=== PATIENT | male | born 1955 | race Caucasian/White ===

== ENCOUNTER → 2017-08-28 09:46 | Outpatient (CLI) | payer MEDICARE, MEDICAID, SELFPAY ==
[2017-08-28 11:08] LABS: Anion Gap 13.4 mEq/L (5-15); Blood Urea Nitrogen 17 mg/dL (7-18); Calcium 9.3 mg/dL (8.5-10.1); Carbon Dioxide 28 mmol/L (21.0-32.0); Chloride 106 mmol/L (98-107); Creatinine,Serum 1.01 mg/dL (0.70-1.30); Estimated Glomerular Filt Rate 75 ml/min (>60); GFR (African American) 90 ML/MIN (>60); Glucose 137 mg/dL (74-106); Potassium 4.4 mmoL/L (3.5-5.1); Sodium 143 mmol/L (136-145)
== END ==
PROVIDERS: Visit Provider Internal Medicine Cardiovascular Disease
DX: I25.5 Ischemic cardiomyopathy (principal)
CPT/HCPCS: 36415; 80048

== ENCOUNTER → 2018-02-28 08:27 | Outpatient (CLI) | payer MEDICARE, MEDICAID, SELFPAY ==
--- NOTE | 2018-02-28 08:34 | IR_ITS ---
CT shoulder LT w con, IR arthrogram shoulder LT HISTORY: Left shoulder injury and pain with limited range of motion. Patient has a pacemaker and cannot have an MRI. ITS.REASON: LEFT SHOULDER ARTHROGRAM ORDERING PHYSICIAN: Barbara Meneses MD PATIENT AGE: 63 years Comparison: 02/10/2018 TECHNIQUE: Following obtaining informed consent under aseptic conditions and local anesthesia with 1% lidocaine 25-gauge needle was advanced to the superior medial aspect at the head of the humerus at the rotator interval. Approximately 12 cc of Isovue-300 was injected without complication. The patient tolerated the procedure well without evidence of immediate complication. Left shoulder arthrogram: There was flow contrast easily into the left shoulder joint and axillary recess. The patient did exercise his shoulder. Images were then obtained. There is normal localization of the contrast. There is no evidence of contrast extravasating into the subacromial region. No evidence of rotator cuff tear. No evidence of adhesive capsulitis. The patient was then taken to the CT suite where axial images are obtained and ABER angled images obtained. Reformatted images were also obtained. FINDINGS: There is no evidence of rotator cuff tear. There is a small area of discontinuity of the anterior glenoid labrum filling with contrast. This has a somewhat irregular contour and is located at the 3:00 position of the anterior glenoid labrum consistent with a Bankart lesion. The bone does not appear involved. There does appear to be some minimal superior extension of this lesion. No other significant anomalies are evident. Bicipital tendon is in place. No fractures are apparent. IMPRESSION: The findings are consistent with tear of the anterior glenoid labrum at the 3:00 region consistent with a Bankart lesion without bony involvement.
== END ==
PROVIDERS: Visit Provider Orthopaedic Surgery
DX: S43.402A Unspecified sprain of left shoulder joint, initial encounter (principal)
CPT/HCPCS: 73040; 73201; Q9967

== ENCOUNTER → 2020-02-11 10:06 | Outpatient (CLI) | payer MEDICARE, MEDICAID, SELFPAY ==
--- NOTE | 2020-02-11 10:12 | XR_ITS ---
PROCEDURE: XR CHEST 2V CLINICAL HISTORY: CHEST PAIN COMPARISON: CR CXR1 CHEST-PORTABLE from 05/17/2014 CR CXR1 CHEST-PORTABLE from 03/10/2016 FINDINGS: The cardiomediastinal silhouette and pulmonary vascularity are within normal limits. Bipolar pacemaker is present from left subclavian approach. There is increased density in both lower lobes consistent with bilateral pneumonia with some atelectatic change with trace bilateral effusions. No acute bony abnormalities. IMPRESSION: Bilateral lower lobe pneumonia with trace bilateral effusions Dictated by: Zuhair De Souza MD 02/11/2020 10:43 Zuhair De Souza MD in [place] 02/11/2020 10:43
== END ==
PROVIDERS: PCP Family Medicine; Visit Provider Family Medicine
DX: R07.9 Chest pain, unspecified (principal)
CPT/HCPCS: 71046

== ENCOUNTER 2021-07-01 03:39 | Observation (INO) | payer MEDICARE, MEDICAID, SELFPAY ==
[2021-07-01] VITALS (35 sets, daily range): BP systolic 62–137; BP diastolic 38–90; PULSE 56–177; RESP 11–23; TEMP 36.6–37.1; O2SAT 72–100; BMI 31.1; BMI 32.1; BMI 31.9
--- NOTE | 2021-07-01 03:36 | ECG_ITS ---
APPROVED REPORT Exam: Resting ECG HR:179 bpm ECG Measurements Heart Rate 179 AXES QRSd 221 QRS -70 QT 297 T 165 QTc 392 Conclusion ATRIAL FIBRILLATION WITH RAPID VENTRICULAR RESPONSE WITH ABERRANT CONDUCTION OR VENTRICULAR PREMATURE COMPLEXES INTRAVENTRICULAR CONDUCTION DELAY [130+ ms QRS DURATION] LATERAL MYOCARDIAL INFARCTION , PROBABLY RECENT [40+ ms Q WAVE AND/OR ST/T ABNORMALITY IN I/aVL/V5/V6] ACUTE NC INTERPRETATION BASED ON A DEFAULT AGE OF 40 YEARS UNCONFIRMED REPORT Electronically signed by : Brenden Keita MD 07/01/2021 09:55:51
--- NOTE | 2021-07-01 03:44 | XR_ITS ---
PROCEDURE INFORMATION: Exam: XR Chest Exam date and time: 07/01/2021 3:50 AM Age: 66 years old Clinical indication: Other: Tachycardia; Sternal or substernal pain; Additional info: Cp TECHNIQUE: Imaging protocol: XR of the chest. Views: 1 view. COMPARISON: CR XR CHEST 2V 02/11/2020 10:14 AM FINDINGS: Tubes, catheters and devices: AICD in stable position. Transdermal pacer leads projecting over the left hemithorax and the mediastinum. Lungs: Low lung volumes with atelectasis at the lung bases. No dense consolidation. Pleural spaces: Unremarkable. No pleural effusion. No pneumothorax. Heart/Mediastinum: The cardiac silhouette is at the upper limit of normal. Bones/joints: Unremarkable. IMPRESSION: No acute cardiopulmonary abnormality.
[2021-07-01 04:01] LABS: Basophils # 0.6 K/mm3 (0-0.2); Basophils % 5.1 % (0.1-2.0); Eosinophils # 0.4 K/mm3 (0.0-0.4); Eosinophils % 2.9 % (0.1-12.0); Hemoglobin 15.4 g/dL (14.1-18.0); Lymphocytes # 3.8 K/mm3 (0.7-4.5); Lymphocytes % 30.6 % (10-50); Mean Corpuscular HGB Conc 33.6 g/dL (31.8-35.4); Mean Corpuscular Hemoglobin 32.5 pg (27.0-31.2); Mean Corpuscular Volume 96.6 fl (80-94); Mean Platelet Volume 9.2 fl (7.4-10.4); Monocytes # 0.9 K/mm3 (0.1-1.0); Neutrophils # 7.4 K/mm3 (1.8-7.8); Neutrophils % 59.5 % (37.0-80.0); Platelet Count 213 K/mm3 (142-424); Red Blood Count 4.76 M/mm3 (4.60-6.20); Red Cell Distribution Width 14.4 % (11.5-17.5); White Blood Count 12.4 K/mm3 (4.8-10.8)
[2021-07-01 04:06] LABS: Alanine Aminotransferase 35 U/L (12-78); Albumin Level 4.3 g/dl (3.5-5.0); Alkaline Phosphatase 69 U/L (38-126); Anion Gap 12.8 mEq/L (5-15); Aspartate Amino Transferase 41 U/L (17-59); Bilirubin,Direct 0.1 mg/dl (0.0-0.4); Bilirubin,Indirect 0.5 mg/dL (0.0-0.9); Bilirubin,Total 0.6 mg/dl (0.2-1.3); Bilirubin,Unconjugated 0.5 mg/dL (0.0-1.1); Blood Urea Nitrogen 31 mg/dl (9-20); Carbon Dioxide 26 mmol/L (22.0-30.0); Chloride 106 mmol/L (98-107); Creatinine Clearance Estimated 106 mL/min (50-200); Estimated Glomerular Filt Rate 75 ml/min (>60); GFR (African American) 90 ML/MIN (>60); Glucose 170 mg/dl (74-100); Potassium 3.8 mmoL/L (3.5-5.1); Sodium 141 mmol/L (136-145); Total Protein,Serum 7.3 g/dl (6.3-8.2)
--- NOTE | 2021-07-01 04:09 | HMH.EDCP ---
ED Disposition Clinical Impression: Cardiac arrhythmia Qualifiers: Arrhythmia type: ventricular tachycardia Qualified Code(s): I47.2 - Ventricular tachycardia Disposition: Admitted As Inpatient Condition on Discharge: Serious - Critical Care Critical Care Time: Yes Attestation: On 07/01/21, the high probability of a clinically significant, sudden or life threatening deterioration of the following system(s) required my full and direct attention, intervention and personal management. The time I documented below is in addition to time spent performing reported procedures but includes the following listed in this critical care notation. Total Critical Care Time: 60 Vital system(s) involved:: Circulatory Failure My critical care processes included: Assessment & monitoring of V/S, Initial and Re-exams, Data Review/Interpretation, Coordinating Care, Medication Orders and management, Documentation Medical Decision Making - Medical Records Medical records reviewed: Yes: I reviewed the patient's medical records. - [place] Inquiry Pt receiving controlled substance: No Vital Signs: 07/01/21 03:40 07/01/21 03:46 07/01/21 03:49 Pulse Rate 176 H Pulse Rate [Left Radial] 177 H Respiratory Rate 18 13 Blood Pressure 88/42 L 83/46 L Blood Pressure [Right Arm] 85/53 L Blood Pressure Mean 65 Blood Pressure Mean [Right Arm] 63 02 Sat by Pulse Oximetry 99 98 Oxygen Delivery Method Room Air Room Air 07/01/21 03:51 07/01/21 03:55 07/01/21 03:56 Pulse Rate 175 H 175 H 174 H Pulse Rate [Left Radial] Respiratory Rate 15 18 16 Blood Pressure 81/38 L 67/47 L 71/47 L Blood Pressure [Right Arm] Blood Pressure Mean Blood Pressure Mean [Right Arm] 02 Sat by Pulse Oximetry 94 L 98 96 Oxygen Delivery Method Room Air Room Air Room Air 07/01/21 04:00 07/01/21 04:01 07/01/21 04:11 Pulse Rate 175 H 175 H 96 H Pulse Rate [Left Radial] Respiratory Rate 16 14 23 Blood Pressure 65/43 L 62/41 L 71/49 L Blood Pressure [Right Arm] Blood Pressure Mean Blood Pressure Mean [Right Arm] 02 Sat by Pulse Oximetry 98 97 97 Oxygen Delivery Method Room Air Room Air Room Air 07/01/21 04:16 07/01/21 04:19 07/01/21 04:20 Pulse Rate 170 H 65 169 H Pulse Rate [Left Radial] Respiratory Rate 14 20 20 Blood Pressure 64/42 L 62/45 L 68/42 L Blood Pressure [Right Arm] Blood Pressure Mean Blood Pressure Mean [Right Arm] 02 Sat by Pulse Oximetry 99 99 98 Oxygen Delivery Method Room Air Room Air Room Air 07/01/21 04:24 07/01/21 04:28 07/01/21 04:30 Pulse Rate 160 H 70 Pulse Rate [Left Radial] Respiratory Rate 16 21 18 Blood Pressure 66/40 L 70/50 L 98/65 L Blood Pressure [Right Arm] Blood Pressure Mean Blood Pressure Mean [Right Arm] 02 Sat by Pulse Oximetry 99 72 L Oxygen Delivery Method Room Air Room Air Room Air 07/01/21 04:35 07/01/21 04:40 07/01/21 04:45 Pulse Rate 65 62 63 Pulse Rate [Left Radial] Respiratory Rate 15 15 16 Blood Pressure 75/51 L 75/45 L 73/43 L Blood Pressure [Right Arm] Blood Pressure Mean Blood Pressure Mean [Right Arm] 02 Sat by Pulse Oximetry 94 L 100 99 Oxygen Delivery Method Room Air Room Air Room Air 07/01/21 04:50 07/01/21 04:54 07/01/21 04:56 Pulse Rate 63 64 65 Pulse Rate [Left Radial] Respiratory Rate 14 15 12 Blood Pressure 73/40 L 74/46 L 79/48 L Blood Pressure [Right Arm] Blood Pressure Mean Blood Pressure Mean [Right Arm] 02 Sat by Pulse Oximetry 100 99 97 Oxygen Delivery Method Room Air Room Air Room Air 07/01/21 05:00 07/01/21 05:10 07/01/21 05:30 Pulse Rate 67 65 61 Pulse Rate [Left Radial] Respiratory Rate 15 17 16 Blood Pressure 83/47 L 79/47 L 84/50 L Blood Pressure [Right Arm] Blood Pressure Mean Blood Pressure Mean [Right Arm] 02 Sat by Pulse Oximetry 97 97 99 Oxygen Delivery Method Room Air Room Air Room Air - Lab Data Lab results reviewed: Yes: I reviewed the patient's l
[2021-07-01 04:23] LABS: T4 (Thyroxine) 8.7 ug/dl (5.53-11.0)
[2021-07-01 04:30] LABS: Troponin I < 0.01 ng/ml (0.00-0.034)
--- NOTE | 2021-07-01 04:33 | ECG_ITS ---
APPROVED REPORT Exam: Resting ECG HR:67 bpm ECG Measurements Heart Rate 67 AXES WY 201 P 27 QRSd 109 QRS 64 QT 432 T 99 QTc 447 Conclusion SINUS RHYTHM LOW QRS VOLTAGE IN PRECORDIAL LEADS [QRS DEFLECTION < 1.0 mV IN CHEST LEADS] PROBABLE ANTERIOR MYOCARDIAL INFARCTION , OF INDETERMINATE AGE [35 ms Q WAVE IN V3/V4] ABNORMAL ECG INTERPRETATION BASED ON A DEFAULT AGE OF 40 YEARS UNCONFIRMED REPORT Electronically signed by : Brenden Keita MD 07/01/2021 16:20:28
--- NOTE | 2021-07-01 04:40 | PC.NURSE ---
Dr. Lenny arroyo for ED
--- NOTE | 2021-07-01 04:42 | PC.NURSE ---
Dr. Chairez on phone with Dr. Galvez
[2021-07-01 05:10] LABS: Coronavirus 19, PCR Not Detected (NotDetected); Influenza A, PCR Not Detected (NotDetected); Influenza B, PCR Not Detected (NotDetected)
--- NOTE | 2021-07-01 05:11 | PC.NURSE ---
0330 pt arrived in ED complaining of chest pain pt has a hx or cardiac issues @0335 pt heart rate was 174 he was vtach/ vfib on the monitor @0445 pt received adenosine with no results pt then maintained 175 hr and no rhythm @0350 started q5 min metoprolol ended 0400 no change 5 versed given @0425 Shock administered @0428 charge @200
--- NOTE | 2021-07-01 06:40 | PC.NURSE ---
PT ARRIVED TO FLOOR VIA STRETCHER FROM ED W/STAFF @ [id number]
--- NOTE | 2021-07-01 08:00 | CA_ITS ---
APPROVED REPORT EXAM: Comprehensive 2D, Doppler, and color-flow Echocardiogram Outbound Supervisor: Rosaura Parekh RVT Ht: 6 ft 0 in Wt: 237lbs BSA: 2.29 BP: 84/50 mmHg Indications: CP,TACHYCARDIA WITH CARDIOVERSION THIS AM, HX ABLATION,A-FIB,CAD,AICD,HLD,HX CHF TDS-PT HAS EXTERNAL PACER ON MID CHEST Echo Enhancing Agent Indication: Endocardial border delineation Agent(s) / Amount(s) Used: Definity 2 cc 2D Dimensions LVOT 3.77 cm (M/F) 1.5-2.5 LA Volume 123.10 mL LA Volume Index 53.75 mL/m2 (M/F) 16-34 M-Mode Dimensions RVDd 2.57 cm (0.9-2.6) LA Diam 5.14 cm (1.9-4.0) LVDd 6.48 cm (3.5-5.7) Ao Diam 3.78 cm (2.0-3.7) LVDs 5.65 cm (3.5-5.7) IVSd 1.06 cm (0.6-1.1) PWd 0.89 cm (0.6-1.1) EF (Teich) 30.60% FS 14.80% EDV (Teich) 225.90 mL TAPSE 1.98 (<1.7) ESV (Teich) 156.80 mL LV Diastology E Decel Time 200.00 (160-240 msec) E/A Ratio 2.0 MED E' 4.90 (< 7 cm/sec) E'/MED E' Ratio 25.47 (>14) LAT E' 7.50 (<10 cm/sec) E/LAT E' Ratio 16.64 (>14) Aortic Valve AO Peak GR. 7.50 mmHg Mitral Valve MV E Max Kelby. 125.00 (40-130 cm/s) MV A Velocity 61.00 (40-130 cm/s) E/A Ratio 2.03 MV Decel. Time 200.00 (160-240 ms) MV PHT 59.00 ms Tricuspid Valve TR P. Velocity 329.00 cm/s RAP Estimate 10.00 mmHg RVSP 53.40 mmHg Left Ventricle Left atrium is mildly enlarged, left ventricle is mildly dilated, severe reduced left ventricular systolic function, visually estimated ejection fraction 25%, there is marked hypokinesis involving mid to distal septum, anterior, anterior apical and apical wall, grade 2 diastolic dysfunction seen with tissue Doppler evidence of raise left atrial pressure. Right Ventricle Right atrium is mildly enlarged, right ventricle is normal size and contractility, there is pacemaker lead seen in right ventricle. Aortic Valve Aortic valve is minimally thickened and fibrosed there is no aortic stenosis or aortic insufficiency. Mitral Valve Mitral valve is minimally thickened, there is mild mitral regurgitation. Tricuspid Valve Tricuspid grossly normal, there is mild tricuspid regurgitation, calculated right ventricular systolic pressure is 53 mmHg. Pulmonic Valve Pulmonic valve is poorly visualized. Great Vessels Aortic root is normal size. Inferior vena cava is normal size with normal inspiratory collapse. Pericardium No significant pericardial effusion noted. Conclusion 1. Biatrial enlargement, dilated left ventricle, severe left ventricular systolic function, estimated ejection fraction 25% with multiple segmental wall motion abnormality as described above, grade 2 diastolic dysfunction with tissue Doppler evidence of raise left atrial pressure. 2. Mild mitral and tricuspid regurgitation, calculated right ventricular systolic pressure 53 mmHg. 3. No significant pericardial effusion. 4. Inferior vena cava is normal size with normal inspiratory collapse. Electronically signed by : Hao Guzman MD 07/01/2021 12:48:28
--- NOTE | 2021-07-01 08:00 | HMH.PHAVTE ---
[facility] Pharmacy VTE Monitoring - Patient Demographics Admission date: 07/01/21 Report Date: 07/01/21 Allergies/Adverse Reactions: Patient Allergies Penicillins [PENICILLINS] Allergy (Intermediate, Verified 03/06/18 09:21) I-RASH Height: 1.83 m Weight: 107.501 kg Patient Problems: Current Active Problems Cardiac arrhythmia (Acute) - VTE Risk Labs: VTE Related Lab Results Hgb 15.4 g/dL (14.1-18.0) 07/01/21 03:43 Hct 46.0 % (42.0-52.0) 07/01/21 03:43 Plt Count 213 K/mm3 (142-424) 07/01/21 03:43 BUN 31 mg/dl (9-20) H 07/01/21 03:43 Creatinine 1.00 mg/dl (0.66-1.25) 07/01/21 03:43 Estimated Creat Clear 106 mL/min (50-200) 07/01/21 03:43 Was VTE Risk Assessment Performed: Yes VTE Score: 7 VTE Risk Level: Moderate Risk Clinical Trial Participant: No - Prophylaxis VTE Prophylaxis Ordered?: Yes Types of VTE Prophylaxis: TEDS Knee High, Pharmacological Pharmacologic Type: Other (PRADAXA)
--- NOTE | 2021-07-01 08:32 | HMH.CNCARD ---
History of Present Illness Consult date: 07/01/21 Requesting physician: Fernie Galvez Consult reason: chest pain, atrial fibrillation Chief complaint: A.fib with RVR, feeling of dread Additional Medical History:: 1. Ischemic cardiomyopathy with ejection fraction approximately 30%, follows with Dr. Hairston A. Initial AK 2000 with subsequent stenting B. Coronary stenting in 2001 possible AK at that time C. 2012 coronary stenting x2 per patient D. AICD implanted 2013 due to ischemic cardiomyopathy E. Recurrent atrial fibrillation for which patient underwent ablation, Dr. Dowd 2. Hypertension 3. Hyperlipidemia 4. Arthritis 5. Atrial fibrillation, anticoagulated with Pradaxa A. History of ablation therapy, 2019, [place], [place], Dr. Dowd History of present illness: 66-year-old white male with known ischemic cardiomyopathy, status post A. fib ablation and AICD implantation presented to the [facility] ER for evaluation of weakness, not feeling well with a sense of dread after waking up about 3:00 last night. He did take 1 or 2 nitroglycerin at home without relief and decided come to the ER for evaluation. He was found to be in a tachycardic rate which was felt to be atrial fibrillation with aberrant conduction. He was given adenosine without improvement followed by metoprolol IV x3 without improvement and was subsequently given a bolus of IV amiodarone and cardioverted electrically. He is maintaining sinus rhythm on amiodarone drip at this time. Patient relates he did forget to take his carvedilol and Entresto last evening. He also did have intercourse with his last night prior to the episode of discomfort. He has been physically active recently moving over a ton of [email or web address] material 2 days ago without any problems. He even mowed his grass yesterday on a ride more without issues. Initial troponin is normal. Preliminary echocardiogram this a.m. with Definity contrast shows ejection fraction around 30% which is consistent with the patient's history. [facility] History Medical History: Reports:: Arrhythmia, Atrial Fibrillation, Congestive Heart Failure, Coronary Artery Disease, Deep Vein Thrombosis, Hyperlipidemia, Hypertension, Internal Pacemaker, Myocardial Infarction Denies:: Cancer, Diabetes Mellitus Type 1, Diabetes Mellitus Type 2, MRSA *Have you ever received a pneumonia vaccine?: Yes *Have you received a flu vaccine this season?: Yes Laterality Cases: Bilateral: Tonsillectomy Other Surgeries: Yes: Angioplasty, Appendectomy, Cardiac Catheterization, Cardiac Surgery, Coronary Stent, Pacemaker, Other Amputation: No Fractures: No - *Social History Last grade of school completed: Some college Smoking Status: Never smoker Alcohol Intake: never Substance Use Type: other Last Used Substance: days (ago) *Occupational Status:: retired Housing: house Household Members: spouse *Travel in the last 8 weeks: None Family Hx:: Cancer, Coronary Artery Disease, Diabetes, Heart Attack, Hyperlipidemia, Hypertension, Alcoholism Meds Home Medications Medication Instructions Recorded Confirmed Type Aspirin [Aspir 81] 81 mg PO DAILY 07/18/17 07/01/21 History Atorvastatin Calcium [Atorvastatin 40 mg PO HS 07/18/17 07/01/21 History 40mg Tab] Sacubitril/Valsartan [Entresto 97 1 each PO BID 07/18/17 07/01/21 History mg-103 mg Tablet] carvediloL [Carvedilol 25mg Tab] 25 mg PO BID 07/18/17 07/01/21 History Dabigatran Etexilate Mesylate 150 mg PO BID 07/01/21 07/01/21 History [Pradaxa] Eplerenone 12.5 mg PO DAILY 07/01/21 07/01/21 History Trazodone HCl [Desyrel 50mg tablet] 50 mg PO HS 07/01/21 07/01/21 History Allergies Allergy/AdvReac Type Severity Reaction Status Date / Time Penicillins [PENICILLINS] Allergy Intermediate I-RASH Verified 03/06/18 09:21 Exam Vital signs and Labs for Last 24 Hours: Temp Pulse Resp BP Pulse Ox 98.1 F 59 L 16 102/60 L 96 07/01/21 08:00 07/01/21
--- NOTE | 2021-07-01 08:55 | HMH.PHAINT ---
HOME MEDICATION LIST VERIFIED USING LIST FROM OUTPATIENT PHARMACY
--- NOTE | 2021-07-01 09:30 | PC.NURSE ---
received call from lab reporting Troponin 0.5. Name and verified. Basilio MCGREGOR rounding and is aware.
--- NOTE | 2021-07-01 10:15 | PC.NURSE ---
Amio gtt decreased to 0.5mg/min.
--- NOTE | 2021-07-01 13:12 | HMH.HPDC ---
<Linda Duran - Last Filed: 07/01/21 13:12> General - General Admission date:: 07/01/21 Discharge date: 07/01/21 *Admission Date: 07/01/21 *Chief complaint: chest pain *History of present illness: 66-year-old white male with known ischemic cardiomyopathy, status post A. fib ablation and AICD implantation presented to the [facility] ER for evaluation of weakness, not feeling well with a sense of dread after waking up about 3:00 last night. He did take 1 or 2 nitroglycerin at home without relief and decided come to the ER for evaluation. He was found to be in a tachycardic rate which was felt to be atrial fibrillation with aberrant conduction. He was given adenosine without improvement followed by metoprolol IV x3 without improvement and was subsequently given a bolus of IV amiodarone and cardioverted electrically. He is maintaining sinus rhythm on amiodarone drip at this time. Patient relates he did forget to take his carvedilol and Entresto last evening. He also did have intercourse with his last night prior to the episode of discomfort. He has been physically active recently moving over a ton of [employer] material 2 days ago without any problems. He even mowed his grass yesterday on a ride more without issues. Initial troponin is normal. Preliminary echocardiogram this a.m. with Definity contrast shows ejection fraction around 30% which is consistent with the patient's history. (above as per Basilio Valenzuela) [facility] History I have reviewed the patient's past medical history: Yes Medical History: Reports:: Arrhythmia, Atrial Fibrillation, Congestive Heart Failure, Coronary Artery Disease, Deep Vein Thrombosis, Hyperlipidemia, Hypertension, Internal Pacemaker, Myocardial Infarction Denies:: Cancer, Diabetes Mellitus Type 1, Diabetes Mellitus Type 2, MRSA *Have you ever received a pneumonia vaccine?: Yes *Have you received a flu vaccine this season?: Yes Laterality Cases: Bilateral: Tonsillectomy Other Surgeries: Yes: Angioplasty, Appendectomy, Cardiac Catheterization, Cardiac Surgery, Coronary Stent, Pacemaker, Other Amputation: No Fractures: No - *Social History Last grade of school completed: Some college Smoking Status: Never smoker Alcohol Intake: never Substance Use Type: other Last Used Substance: days (ago) *Occupational Status:: retired Housing: house Household Members: spouse *Travel in the last 8 weeks: None Family Hx:: Cancer, Coronary Artery Disease, Diabetes, Heart Attack, Hyperlipidemia, Hypertension, Alcoholism Review of Systems - Constitutional Denies chills, Denies fever(s) - Eyes Denies blurry vision, Denies double vision - ENT Denies nasal congestion, Denies sore throat - *Cardiovascular Reports chest pain, Reports shortness of breath, Denies leg swelling - *Respiratory Reports shortness of breath, Denies chest congestion, Denies cough - *Gastrointestinal Reports nausea, Denies abdominal pain, Denies loose stools, Denies vomiting - *Genitourinary Denies difficulty urinating, Denies painful urination - *Musculoskeletal Denies joint pain - *Neurologic Reports dizziness, Denies headache(s), Denies seizure-like activity, Denies weakness Exam Vital signs and Labs for Last 24 Hours: Temp Pulse Resp BP Pulse Ox 97.8 F 56 L 11 L 99/65 L 96 07/01/21 10:00 07/01/21 12:00 07/01/21 12:00 07/01/21 12:00 07/01/21 12:00 Laboratory Results - last 24 hr 07/01/21 03:43: WBC 12.4 H, RBC 4.76, Hgb 15.4, Hct 46.0, MCV 96.6 H, MCH 32.5 H, MCHC 33.6, RDW 14.4, Plt Count 213, MPV 9.2, Neut % (Auto) 59.5, Lymph % (Auto) 30.6, Conway % (Auto) 7.0, Eos % (Auto) 2.9, Baso % (Auto) 5.1 H, Neut # (Auto) 7.4, Lymph # (Auto) 3.8, Conway # (Auto) 0.9, Eos # (Auto) 0.4, Baso # (Auto) 0.6 H 07/01/21 03:43: Sodium 141, Potassium 3.8, Chloride 106, Carbon Dioxide 26, Anion Gap 12.8, BUN 31 H, Creatinine 1.00, Estimated Creat Clear 106, Estimated GFR 75, Est GFR ( Amer) 90, Glucose 170 H,
--- NOTE | 2021-07-04 15:38 | CARE MANAGER ---
Attempted to contact patient and left VM message. ROSA MARIA Ken
--- NOTE | 2021-07-05 15:07 | CARE MANAGER ---
Unable to reach patient via phone to discuss post discharge status. Attempted x 2 days.
--- NOTE | 2021-07-05 15:25 | CARE MANAGER ---
Patient returned call today and stated that he had been out mowing his yard when I attempted to call. He states that he is doing well and plans to see e m assembler tomorrow. No known needs at this time.
== END 2021-07-01 14:04 | disposition home or self-care (01) ==
LOC: ER 03:45 → 2ND 04:56
PROVIDERS: Physician Assistant; Admitting Provider Family Medicine; Emergency Provider Emergency Medicine; PCP Family Medicine; Visit Provider Family Medicine
DX: I47.2 Ventricular tachycardia (principal); Z82.49 Family history of ischemic heart disease and other diseases of the circulatory system; Z79.899 Other long term (current) drug therapy; I25.5 Ischemic cardiomyopathy; I11.0 Hypertensive heart disease with heart failure; I50.9 Heart failure, unspecified; I25.10 Atherosclerotic heart disease of native coronary artery without angina pectoris; Z95.0 Presence of cardiac pacemaker; Z95.5 Presence of coronary angioplasty implant and graft; Z20.822 Contact with and (suspected) exposure to COVID-19
CPT/HCPCS: G0378; 36415; 71045; 80048; 80076; 83735; 84436; 84443; 84484; 85025; 92960; 93005; 93306; 96365; 96366; 96375; 96376; 99291; C9803; J0282; J2405; J7060; U0003; U0005

== ENCOUNTER 2022-03-02 16:22 | Inpatient (IN) | payer MEDICARE, MEDICAID, SELFPAY ==
[2022-03-02] VITALS (21 sets, daily range): BP systolic 88–158; BP diastolic 54–74; PULSE 72–181; RESP 12–22; TEMP 36.6–37.6; O2SAT 90–99; BMI 30.4; BMI 30.8
--- NOTE | 2022-03-02 | IR_ITS ---
APPROVED REPORT Patient Location: [facility] Customer Representative: JUAN Johnson RT (R) PROCEDURES Selective coronary angiogram Drug-eluting stent deployment to the mid LAD INDICATION Acute anterior ST elevation myocardial infarction, Coronary artery disease, Ventricular tachycardia Informed consent was obtained prior to the procedure. COMPLICATIONS None Estimated Blood Loss: Less than 10 ml TECHNIQUE One percent lidocaine used to anesthetize the right anterior aspect of the wrist. The right radial artery was accessed via the Seldinger technique. A 6 Tajik sheath was placed in the right radial artery. 2.5 mg of verapamil, 800 mcg of nitroglycerin, 1mg Lidocaine and 5000 U Heparin were given through the arterial sheath. The papa catheter was also used to perform selective coronary angiogram. At the end the diagnostic angiogram Choice PT extra-support wire was placed into the distal LAD and a 3.5 x 22 mm resolute Solo stent was deployed at 20 aline reducing the stenosis to 0%. Repeat angiography demonstrated a stent which was previously placed downstream from the initial stent which was just placed this evening was undersized for the vessel. A 3 mm x 15 mm resolute Cheyney stent was then placed distal to the for stent if still overlapping and deployed at 24 aline. The balloon was brought back and deployed at 28 aline to post dilate and mesh the 2 stents. After achieving excellent angiographic results the apparatus was removed the sheath was removed and hemostasis was achieved using TR banding patient was transferred to the postop putting in stable condition ANGIOGRAPHIC RESULTS The left main artery Normal The left anterior descending artery Has a proximal 30% stenosis followed by 70 to 80% concentric in-stent restenosis in the mid LAD followed by an undersized mid LAD stent. Distally there are diffuse 20% stenoses. A large first diagonal artery is present and has an ostial 40% stenosis accompanied by BRENDAN-3 flow with an additional proximal concentric 40 to 50% stenosis The circumflex artery Is a dominant vessel widely patent with mild 10% diffuse luminal irregularities The right coronary artery Nondominant normal The ROGERS ventriculogram reveals Not performed The left ventricular end-diastolic pressure Not measured IMPRESSION Severe stenosis within the mid LAD with successful stenting reducing the stenosis to 0% with 2 contiguous drug-eluting stents PLAN 1. Dual antiplatelet therapy 2. Uptitrate beta-blockers to keep target heart rate below 70 3. Interrogate AICD in the morning to determine the degree of RV pacing and to determine why the defibrillator did not shock the patient with wide-complex tachycardia 4. Supportive care 5. LDL less than 55 to be achieved with high intensity statin 6. Standard therapy for left ventricular dysfunction which is present based on patient's history 7. Echocardiogram in the morning to better assess left ventricular ejection fraction 8. My initial impression is patient is not on an appropriate amount of beta-blockade therapy. If patient does have left ventricular dysfunction as history suggests and begins to RV pace with higher doses of beta-blockers which he clearly requires then he would be a candidate for an upgrade to biventricular pacing. At this point I cannot say whether patient is an appropriate candidate for cardiac resynchronization therapy however it appears apparent that much higher doses of beta-jose therapy is required Electronically signed by : Arvind Nuñez MD 03/03/2022 14:08:09
--- NOTE | 2022-03-02 16:20 | ECG_ITS ---
APPROVED REPORT Exam: Resting ECG HR:168 bpm ECG Measurements Heart Rate 168 AXES QRSd 291 QRS -66 QT 319 T 0 QTc 410 Conclusion ATRIAL FIBRILLATION WITH RAPID VENTRICULAR RESPONSE LBBB CRITICAL TEST RESULT UNCONFIRMED REPORT Electronically signed by : Brenden Keita MD 03/03/2022 16:47:18
--- NOTE | 2022-03-02 16:28 | PC.NURSE ---
pt moved from room 5 to room 4 with zoll attached.
--- NOTE | 2022-03-02 16:34 | PC.NURSE ---
Shock given to pt, MD, respiratory and other nursing staff at bs, pt tolerated well
--- NOTE | 2022-03-02 16:36 | ECG_ITS ---
APPROVED REPORT Exam: Resting ECG HR:89 bpm ECG Measurements Heart Rate 89 AXES MT 184 P 94 QRSd 101 QRS -16 QT 319 T 116 QTc 366 Conclusion SINUS RHYTHM LBBB Late R wave progression Inferior Q wave noted ABNORMAL ECG UNCONFIRMED REPORT Electronically signed by : Brenden Keita MD 03/03/2022 16:46:48
--- NOTE | 2022-03-02 16:44 | PC.NURSE ---
speaking with Dr. Nuñez
--- NOTE | 2022-03-02 16:45 | XR_ITS ---
PROCEDURE INFORMATION: Exam: XR Chest Exam date and time: 03/02/2022 5:03 PM Age: 67 years old Clinical indication: Pain; Chest pressure; Prior surgery; Surgery date: 6+ months; Surgery type: Pace maker implant; Patient HX: HX myocardial infarction; Additional info: Chest pain. Stemi TECHNIQUE: Imaging protocol: Radiologic exam of the chest. Views: 1 view. COMPARISON: CR XR CHEST PORTABLE 07/01/2021 3:50 AM FINDINGS: Tubes, catheters and devices: There is an electronic monitoring device projecting over the right anterior chest wall with large rounded paddles projecting over the upper heart border. Lungs: Visualized lung delacruz are aerated and clear. Pleural spaces: Unremarkable. No pleural effusion. No pneumothorax. Heart/Mediastinum: Cardiac silhouette is enlarged. There are pacemaker wires projecting within the right atrium and right ventricle, unchanged. The Bones/joints: Unremarkable for age. IMPRESSION: Cardiomegaly otherwise negative chest.
--- NOTE | 2022-03-02 16:48 | PC.NURSE ---
at speaking with pt and about cardiology plan
--- NOTE | 2022-03-02 16:49 | PC.NURSE ---
Called front end driver; STEMI alert
--- NOTE | 2022-03-02 16:54 | PC.NURSE ---
LesleyRN spoke with Dr. Nuñez and confirmed medications. Dr. Nuñez advised to hold off on the heparin at this time, but to give the 324mg of ASA, and 180mg of Brilinta Repeated and verified with Dr. Nuñez and notified Dr. Carey and patient medicated.
--- NOTE | 2022-03-02 16:54 | HMH.EDGENADL ---
Discharge Plan Disposition Patient Disposition: Still a Patient Condition: Critical Clinical Impressions Clinical Impression: Ventricular tachycardia, Acute hypotension, ST elevation (STEMI) myocardial infarction Discharge ED Provider: Alejandro Carey General Adult HPI General Chief complaint: Chest Pain Stated complaint: chest pain Time Seen by Provider: 03/02/22 16:25 History of Present Illness HPI narrative: The patient states that he has had a 1 hour history of chest tightness and left arm pain with some mild shortness of breath, nausea, and diaphoresis. He took a nitroglycerin at home. He has a known history of cardiomyopathy, atrial fibrillation status post ablation, myocardial infarction and stent placement, AICD/pacemaker. He is anticoagulated with Pradaxa. He had an episode of ventricular tachycardia requiring cardioversion at this hospital in June. He states that he just saw his primary care provider in the office today and was diagnosed with a urinary tract infection. He was prescribed an antibiotic which she took 2 hours before his current symptoms started. He states he also has been sick for about a month. He got bit by Lyme disease tick in January and was treated with doxycycline. He has strep throat treated with cefdinir. He said he has a high white blood cell count that has been going higher and they think he might have CLL. Related Data Home Medications Medication Instructions Recorded Confirmed aspirin 81 mg tablet,delayed 81 mg PO DAILY Heart Health 07/18/17 03/02/22 release atorvastatin 40 mg tablet 40 mg PO HS High cholesterol 07/18/17 03/02/22 carvedilol 25 mg tablet 25 mg PO BID Hypertension 07/18/17 03/02/22 sacubitril 97 mg-valsartan 103 mg 1 each PO BID Hypertension 07/18/17 03/02/22 tablet dabigatran etexilate 150 mg capsule 150 mg PO BID Blood thinner 07/01/21 03/02/22 eplerenone 25 mg tablet 12.5 mg PO DAILY High blood 07/01/21 03/02/22 pressure trazodone 50 mg tablet 50 mg PO HS Sleep 07/01/21 03/02/22 Allergies Allergy/AdvReac Type Severity Reaction Status Date / Time Penicillins [PENICILLINS] Allergy Intermediate I-RASH Verified 07/04/21 13:30 [facility] Disclaimer: The information contained in this section may have been updated after the patient was seen, as this information can be updated by other users. Medical History (Updated 03/02/22 @ 19:05 by Paxton Garcia RN) Atrial fibrillation Myocardial infarction Family History (Updated 03/02/22 @ 19:05 by Paxton Garcia RN) Other Family history of hyperlipidemia Family history of hypertension Family history of myocardial infarction Social History Smoking Status: Unknown if ever smoked alcohol intake: never substance use type: other current occupational status: retired Travel in the last 8 weeks: Inside the [place] household members: spouse housing: house caffeine: Yes ROS Obtained: Yes Systems reviewed as appropriate & no additional complaints except as documented Constitutional Constitutional: Denies fever(s), Denies headache(s) and Denies weakness ENT Ears, Nose, Mouth, and Throat: Denies headache(s), Denies nasal discharge and Denies sore throat Cardiovascular Cardiovascular: Reports chest pain, Reports diaphoresis and Denies palpitations Respiratory Respiratory: Reports shortness of breath and Denies cough Gastrointestinal Gastrointestingal: Denies abdominal pain, constipation, diarrhea or vomiting Genitourinary Male Genitourinary: Reports as per HPI Musculoskeletal Musculoskeletal: Denies numbness Neurologic Neurologic: Denies headache(s), Denies numbness and Denies weakness Endocrine Endocrine: Denies palpitations Physical Exam General General appearance: alert and in no apparent distress Comment: threat monitoring analyst shows wide-complex tachycardia, presumed ventricular tachycardia. Blood pressure is 84 systolic. Head Head exam: atraumatic and normocephalic Eye Eye
[2022-03-02 17:01] LABS: Chloride 102 mmol/L (98-107); Sodium 137 mmol/L (136-145)
[2022-03-02 17:02] LABS: Potassium 3.7 mmoL/L (3.5-5.1)
[2022-03-02 17:04] LABS: Basophils # 2.6 K/mm3 (0-0.2); Basophils % 3.2 % (0.1-2.0); Blood Urea Nitrogen 16 mg/dl (9-20); Creatinine Clearance Estimated 85 mL/min (50-200); Eosinophils # 0.4 K/mm3 (0.0-0.4); Eosinophils % 0.5 % (0.1-12.0); Estimated Glomerular Filt Rate 60 ml/min (>60); GFR (African American) 73 ML/MIN (>60); Hematocrit 42.4 % (42.0-52.0); Hemoglobin 13.6 g/dL (14.1-18.0); Lymphocytes # 4.7 K/mm3 (0.7-4.5); Lymphocytes % 5.7 % (10-50); Mean Corpuscular Hemoglobin 31.6 pg (27.0-31.2); Mean Corpuscular Volume 98.8 fl (80-94); Mean Platelet Volume 9.8 fl (7.4-10.4); Monocytes # 2.6 K/mm3 (0.1-1.0); Monocytes % 3.1 % (1.7-9.3); Neutrophils # 74.2 K/mm3 (1.8-7.8); Neutrophils % 90.6 % (37.0-80.0); Platelet Count 495 K/mm3 (142-424); Red Blood Count 4.29 M/mm3 (4.60-6.20); Red Cell Distribution Width 14.7 % (11.5-17.5)
[2022-03-02 17:05] LABS: Anion Gap 15.7 mEq/L (5-15); Calcium 9.4 mg/dl (8.4-10.2); Carbon Dioxide 23 mmol/L (22.0-30.0); Glucose 154 mg/dl (74-100)
[2022-03-02 17:08] LABS: White Blood Count 81.9 K/mm3 (4.8-10.8)
[2022-03-02 17:09] LABS: MANUAL DIFFERENTIAL MANUAL DIFFERENTIAL (MANUAL DIFF)
[2022-03-02 17:21] LABS: Troponin I < 0.01 ng/ml (0.00-0.034)
[2022-03-02 17:25] LABS: Lymphocytes % 14 % (10-50); Monocytes % 4 % (2-9); Neutrophils % 82 % (42-76); Total Cells Counted 100
[2022-03-02 17:26] LABS: Platelet Estimate Slight Increase; Schistocytes 1+
--- NOTE | 2022-03-02 17:35 | PC.NURSE ---
[id number] paving and surfacing labourer team paged josette [phone] [phone]
--- NOTE | 2022-03-02 17:50 | PC.NURSE ---
transported pt to wheelabrator operator with HS and
[2022-03-02 18:32] LABS: CATHL Activated Clotting Time 242 SEC (74-125)
[2022-03-02 18:32] LABS: CATHL Activated Clotting Time 307 SEC (74-125)
--- NOTE | 2022-03-02 21:00 | EXP.HP ---
History of Present Illness *Admission Date: 03/02/22 *Reason for visit:: Chest Pain *History of present illness: Mr. Kaufman is a 67-year-old male with a past medical history that is positive for CAD, h/o RI and previous history of PCI, Atrial Fibrillation, Hyperlipidemia and suspected CLL, followed by [facility]. He presented to [facility] through the ER due to chest pain that occurred approximately 1 hour prior to presentation with associated left arm pain, shortness of air, nausea and diaphoresis. In the ER he was noted to be in a wide-complex tachycardia, he was sedated and controverted, following Cardioversion he was noted to have ST segment elevation in the anterior leads. A STEMI alert was called and he was taken to the laboratory immunologist. He underwent a radial approach. He was found to have significant stenosis in the mid LAD and underwent successful stenting with 2 contiguous drug-eluting stents. He is seen following his cath procedure. It is noted that he has an AICD and it did not fire, Cardiology recommendations will be implemented. He reports that he was just diagnosed with a UTI prior to the event earlier in the day. Urine will be sent for urinalysis and empiric antibiotic started. The plan of care was discussed with the patient and daughter at bedside on admission. [facility] Disclaimer: The information contained in this section may have been updated after the patient was seen, as this information can be updated by other users. Medical History (Updated 03/02/22 @ 21:18 by Fernando Kendrick DNP) Atrial fibrillation CLL (chronic lymphocytic leukemia) Myocardial infarction Surgical History (Updated 03/02/22 @ 21:09 by Fernando Kendrick DNP) AICD (automatic cardioverter/defibrillator) present History of cardiac radiofrequency ablation (RFA) History of percutaneous coronary intervention Family History Other Family history of hyperlipidemia Family history of hypertension Family history of myocardial infarction Social History (Updated 03/02/22 @ 21:09 by Fernando Kendrick DNP) Smoking Status: Never smoker alcohol intake: never substance use type: other current occupational status: retired Travel in the last 8 weeks: [place] the [place] household members: spouse housing: house caffeine: Yes Review of Systems Review of Systems Review of systems:: pertinent systems reviewed and negative unless documented below Constitutional Constitutional: Reports system reviewed and no additional complaints, except as documented Eyes Eyes: Reports system reviewed and no additional complaints, except as documented ENT Ears, Nose, Mouth, and Throat: Reports system reviewed and no additional complaints, except as documented *Cardiovascular Cardiovascular: Reports chest pain, Reports dyspnea and Reports lightheadedness *Respiratory Respiratory: Reports system reviewed and no additional complaints, except as documented and Reports dyspnea *Gastrointestinal Gastrointestinal: Reports system reviewed and no additional complaints, except as documented *Genitourinary Genitourinary: Reports system reviewed and no additional complaints, except as documented *Musculoskeletal Musculoskeletal: Reports system reviewed and no additional complaints, except as documented Integumentary/Breasts Skin/Breast: Reports system reviewed and no additional complaints, except as documented *Neurologic Neurologic: Reports system reviewed and no additional complaints, except as documented Psychiatric Psychiatric: Reports system reviewed and no additional complaints, except as documented Endocrine Endocrine: Reports system reviewed and no additional complaints, except as documented Hematologic/Lymphatic Hematologic/Lymphatic: Reports system reviewed and no additional complaints, except as documented Allergic/Immunologic Allergic/Immunologic: Reports system reviewe
--- NOTE | 2022-03-02 21:45 | PC.NURSE ---
attempted to take last 2mL of air out of radial band, but started bleeding so put band back on with 16mL of air in it
[2022-03-03] VITALS (16 sets, daily range): BP systolic 95–120; BP diastolic 50–69; PULSE 63–94; RESP 16–26; TEMP 36.9–38.3; O2SAT 92–97; BMI 67.4; BMI 30.9; BMI 30.7
[2022-03-03 00:12] LABS: Microscopic, Urine URINE MICROSCOPIC (MICROSCOPIC)
[2022-03-03 00:27] LABS: Appearance,Urine CLEAR (Clear); Bilirubin,Urine Negative (Negative); Blood, Urine TRACE-I (Negative); Color,Urine Orange (Yellow); Glucose,Urine (UA) TRACE (Negative); Ketones,Urine 1+ (Negative); Leukocyte Esterase,Urine TRACE (Negative); Nitrate,Urine POSITIVE (Negative); PH,Urine 5.5 (5.0-8.5); Protein,Urine 1+ (Negative)
[2022-03-03 00:50] LABS: Bacteria,Urine 1+ /lpf
--- NOTE | 2022-03-03 06:00 | CA_ITS ---
APPROVED REPORT EXAM: Comprehensive 2D, Doppler, and color-flow Echocardiogram Locomotive Crane Engineer: Fannie Shin CRT Ht: 216 ft 0 in Wt: 227lbs BSA: 30.21 BP: 100/59 mmHg Indications: Chest Pain, Congestive Heart Failure, Atrial Fibrillation, Hyperlipidemia, cardioversion, ablation, v tach, AICD, 2 stents 03/02/22 2D Dimensions LVOT 2.02 cm (M/F) 1.5-2.5 LA Volume 105.20 mL LA Volume Index 45.70 mL/m2 (M/F) 16-34 M-Mode Dimensions RVDd 3.00 cm (0.9-2.6) LA Diam 4.75 cm (1.9-4.0) LVDd 5.59 cm (3.5-5.7) Ao Diam 4.56 cm (2.0-3.7) LVDs 4.04 cm (3.5-5.7) IVSd 1.89 cm (0.6-1.1) PWd 0.87 cm (0.6-1.1) EF (Teich) 53.10% FS 27.70% EDV (Teich) 153.00 mL TAPSE 2.96 (<1.7) ESV (Teich) 71.70 mL LV Diastology E Decel Time 223.00 (160-240 msec) E/A Ratio 1.38 MED E' 4.20 (< 7 cm/sec) MED A' 8.00 cm/s E'/MED E' Ratio 29.07 (>14) LAT A' 6.10 cm/s Aortic Valve AO Peak GR. 8.70 mmHg Mitral Valve MV E Max Kelby. 122.00 (40-130 cm/s) MV A Velocity 88.00 (40-130 cm/s) E/A Ratio 1.38 MV Decel. Time 223.00 (160-240 ms) MV PHT 65.00 ms Pulmonary Valve PV Peak Velocity 220.00 (50-150 cm/s) Tricuspid Valve TR P. Velocity 275.00 cm/s RAP Estimate 10.00 mmHg RVSP 40.20 mmHg Left Ventricle Left atrium is moderately enlarged, left ventricle is mildly dilated, mild concentric left ventricular hypertrophy, estimated ejection fraction approximately 20%, there is marked hypokinesis involving mid to distal septum, anterior, anterior apical and apical wall. Grade 2 diastolic dysfunction seen with tissue Doppler evidence of raise left atrial pressure. Right Ventricle Right atrium and right ventricle are mildly enlarged with normal contractility. There is an AICD lead seen in right ventricle. Aortic Valve Aortic valve is minimally thickened and fibrosed there is no aortic stenosis or aortic insufficiency. Mitral Valve Mitral valve is grossly normal, there is mild mitral regurgitation. Tricuspid Valve Tricuspid grossly normal, there is mild tricuspid regurgitation, calculated right ventricular systolic pressure 30 mmHg. Pulmonic Valve Pulmonic valve is poorly visualized. Great Vessels Aortic root is normal size. Inferior vena cava is poorly visualized. Pericardium No significant pericardial effusion noted. Conclusion 1. Enlarged left atrium, dilated left ventricle, severely reduced left ventricular systolic function, estimated ejection fraction 20% with segmental wall motion abnormality described above. Grade 2 diastolic dysfunction seen with tissue Doppler evidence of raise left atrial pressure. 2. Mildly enlarged right ventricle with normal contractility. 3. Mild mitral and tricuspid regurgitation. Calculated right ventricular systolic pressure 30 mmHg. 4. No significant pericardial effusion noted. 5. Inferior vena cava is poorly visualized. Electronically signed by : Hao Guzman MD 03/03/2022 11:12:23
[2022-03-03 06:30] LABS: Chloride 106 mmol/L (98-107); Potassium 3.3 mmoL/L (3.5-5.1); Sodium 136 mmol/L (136-145)
[2022-03-03 06:33] LABS: Alanine Aminotransferase 23 U/L (12-78); Albumin Level 3.4 g/dl (3.5-5.0); Albumin/Globulin Ratio 1.3 (1.1-1.8); Alkaline Phosphatase 70 U/L (38-126); Anion Gap 11.3 mEq/L (5-15); Aspartate Amino Transferase 34 U/L (17-59); Bilirubin,Total 0.9 mg/dl (0.2-1.3); Blood Urea Nitrogen 19 mg/dl (9-20); Calcium 8.4 mg/dl (8.4-10.2); Carbon Dioxide 22 mmol/L (22.0-30.0); Cholesterol 94 mg/dl (140-200); Creatinine Clearance Estimated 78 mL/min (50-200); Estimated Glomerular Filt Rate 74 ml/min (>60); GFR (African American) 90 ML/MIN (>60); Globulin 2.7 g/dL (1.3-3.2); Glucose 133 mg/dl (74-100); Magnesium 1.8 mg/dl (1.6-2.3); Total Protein,Serum 6.1 g/dl (6.3-8.2); Triglycerides 69 mg/dl (30-150); VLDL Cholesterol 14 mg/dL (0-40)
[2022-03-03 06:34] LABS: Chol/HDL Ratio 4.3 (1-3.5); HDL Cholesterol 22 mg/dl (40-60)
[2022-03-03 06:44] LABS: Direct LDL Cholesterol 41.75 mg/dL (100-129)
[2022-03-03 07:10] LABS: Basophils # 2.3 K/mm3 (0-0.2); Eosinophils # 0.2 K/mm3 (0.0-0.4); Eosinophils % 0.2 % (0.1-12.0); Hematocrit 35.8 % (42.0-52.0); Lymphocytes # 3.4 K/mm3 (0.7-4.5); Lymphocytes % 4.5 % (10-50); Mean Corpuscular Hemoglobin 31.1 pg (27.0-31.2); Mean Corpuscular Volume 94.3 fl (80-94); Mean Platelet Volume 9.3 fl (7.4-10.4); Monocytes # 2.6 K/mm3 (0.1-1.0); Monocytes % 3.5 % (1.7-9.3); Neutrophils # 69.3 K/mm3 (1.8-7.8); Neutrophils % 91.8 % (37.0-80.0); Platelet Count 372 K/mm3 (142-424); Red Cell Distribution Width 14.6 % (11.5-17.5)
[2022-03-03 07:33] LABS: Hemoglobin 11.8 g/dL (14.1-18.0); MANUAL DIFFERENTIAL MANUAL DIFFERENTIAL (MANUAL DIFF); White Blood Count 75.5 K/mm3 (4.8-10.8)
--- NOTE | 2022-03-03 07:33 | PC.NURSE ---
attempted to notify MD Sharma of pt's critical WBC of 75.5, MD unable to take result at this time, informed day RN Vicky of result so that can relay that to MD Sharma when calls back
--- NOTE | 2022-03-03 08:23 | PC.NURSE ---
notified Dr Sharma of pt critical lab value at 0820 wbc 75.5
[2022-03-03 08:42] LABS: Anisocytosis 1+; Hypochromasia 1+; Lymphocytes % 16 % (10-50); Monocytes % 2 % (2-9); Neutrophils % 78 % (42-76); Platelet Estimate Normal; Total Cells Counted 100
--- NOTE | 2022-03-03 12:48 | EXP.CARD.CON ---
History of Present Illness History of Present Illness Consult date: 03/03/22 Consult reason: chest pain Chief complaint: STEMI Additional Medical History:: Sniffing and past medical history: Coronary artery disease status post AICD Hypertension Hyperlipidemia A. fib History of ischemic cardiomyopathy Suspected CLL History of present illness: 67-year-old white male with above past medical history presented to ER yesterday with complaint of midsternal chest pressure radiating to left arm associated with shortness of breath lasting 1 hour. On presentation to ER patient was found to be in a wide complex tachycardia and underwent cardioversion in ER. After cardioversion ST elevation was noted in inferior and lateral leads and patient was taken to Drama Therapist for STEMI. Patient has a history of coronary artery disease and ischemic cardiomyopathy and has AICD in place. Patient and family reports patient was not shocked prior to arrival to ER. Patient was admitted after Drama Therapist intervention for evaluation overnight and cardiology evaluation of AICD in a.m. this morning patient reports overall feels pretty good denies further episodes of chest pain or shortness of breath. Left heart cath 03/02/2022 IMPRESSION Severe stenosis within the mid LAD with successful stenting reducing the stenosis to 0% with 2 contiguous drug-eluting stents PLAN 1. Dual antiplatelet therapy 2. Uptitrate beta-blockers to keep target heart rate below 70 3. Interrogate AICD in the morning to determine the degree of RV pacing and to determine why the defibrillator did not shock the patient with wide-complex tachycardia 4. Supportive care 5. LDL less than 55 to be achieved with high intensity statin 6. Standard therapy for left ventricular dysfunction which is present based on patient's history 7. Echocardiogram in the morning to better assess left ventricular ejection fraction 8. My initial impression is patient is not on an appropriate amount of beta-blockade therapy.? If patient does have left ventricular dysfunction as history suggests and begins to RV pace with higher doses of beta-blockers which he clearly requires then he would be a candidate for an upgrade to biventricular pacing.? At this point I cannot say whether patient is an appropriate candidate for cardiac resynchronization therapy however it appears apparent that much higher doses of beta-jose therapy is required [facility] Disclaimer: The information contained in this section may have been updated after the patient was seen, as this information can be updated by other users. Medical History (Updated 03/02/22 @ 21:18 by Fernando Kendrick DNP) Atrial fibrillation CLL (chronic lymphocytic leukemia) Myocardial infarction Surgical History (Updated 03/02/22 @ 21:09 by Fernando Kendrick DNP) AICD (automatic cardioverter/defibrillator) present History of cardiac radiofrequency ablation (RFA) History of percutaneous coronary intervention Family History Other Family history of hyperlipidemia Family history of hypertension Family history of myocardial infarction Social History (Updated 03/02/22 @ 21:09 by Fernando Kendrick DNP) Smoking Status: Never smoker alcohol intake: never substance use type: other current occupational status: retired Travel in the last 8 weeks: [place] the [place] household members: spouse housing: house caffeine: Yes Review of Systems Constitutional Constitutional: Denies headache(s) and Denies weakness ENT Ears, Nose, Mouth, and Throat: Denies headache(s) *Cardiovascular Cardiovascular: Reports chest pain and Reports dyspnea *Respiratory Respiratory: Reports dyspnea *Musculoskeletal Musculoskeletal: Denies numbness *Neurologic Neurologic: Reports system reviewed and no additional complaints, except as documented, Denies headache(s), Denies numbness and Denies weakness Exam Data for Last 24 hours
--- NOTE | 2022-03-03 15:10 | PC.NURSE ---
ok to transfer pt out of stepdown but remain on surveillance system monitor per Carmen in cardiology and Dr Sharma
--- NOTE | 2022-03-03 16:00 | EXP.ACUTE.PN ---
Subjective *Date: 03/03/22 *Time: 16:49 Interval history: Mr. Chávez did well overnight. No longer having any chest pain or arrhythmia. Cardiology evaluating him today, interrogating pacemaker. Denies any nausea, shortness of breath, vomiting, diarrhea. Medical Exam Vital signs and Labs for Last 24 Hours: Vital Signs Temp Pulse Pulse Resp BP BP Pulse Ox 03/03/22 08:00 70 03/03/22 14:00 63 20 100/58 L 93 L 03/03/22 08:00 74 97 03/03/22 13:00 82 20 100/58 L 94 L 03/03/22 10:00 74 105/60 L 96 03/03/22 08:00 70 20 101/61 L 97 03/03/22 12:00 70 03/03/22 07:44 98.7 F 03/03/22 06:00 69 21 100/59 L 93 L 03/03/22 04:00 100.9 F H 03/03/22 04:00 83 20 110/54 L 92 L 03/03/22 04:00 83 03/03/22 02:00 96 03/03/22 02:00 94 H 26 H 96/51 L 93 L 03/03/22 01:35 78 18 95/50 L 93 L 03/03/22 00:00 74 03/02/22 20:00 73 03/03/22 00:35 75 16 111/60 94 L 03/03/22 00:00 98.5 F 03/02/22 22:35 76 12 109/67 L 93 L 03/02/22 21:35 79 16 135/64 96 03/02/22 20:35 74 19 120/63 99 03/02/22 20:05 74 21 104/59 L 97 03/02/22 19:35 78 20 107/58 L 95 03/02/22 19:20 78 21 100/58 L 94 L 03/02/22 20:00 95 03/02/22 23:35 77 18 109/60 L 94 L 03/02/22 21:05 72 17 115/74 95 03/02/22 19:05 80 22 107/58 L 93 L 03/02/22 20:00 98.5 F 03/02/22 18:55 99.7 F H 81 18 110/57 L 93 L 03/02/22 18:25 97 03/02/22 18:35 85 18 158/66 H 95 03/02/22 18:30 80 16 104/55 L 91 L 03/02/22 17:50 97.8 F 92 H 15 106/61 L 03/02/22 17:11 92 H 15 106/61 L 96 03/02/22 17:06 89 19 105/63 L 95 03/02/22 17:01 92 H 19 105/60 L 95 03/02/22 16:40 98 H 03/02/22 16:22 181 H 20 88/54 L 96 03/02/22 18:25 86 20 120/59 L 90 L 03/02/22 18:28 89 92 H 20 135/61 90 L Intake and Output 03/03/22 03/03/22 03/03/22 07:59 15:59 23:59 Intake Total 0 / 240 240 / 240 Output Total 200 / 650 450 / 650 Balance -200 / -410 -210 / -410 Intake: Intake, Oral Amount 0 / 240 240 / 240 Output: Output, Urine Amount 200 / 650 450 / 650 Other: Number of Voids 2 Number of Unmeasured Voids 1 Weight 226 kg 103 kg Patient Weight 03/03/22 23:59 Weight 103 kg Laboratory Results - last 24 hr 03/02/22 16:23: WBC 81.9 H*, RBC 4.29 L, Hgb 13.6 L, Hct 42.4, MCV 98.8 H, MCH 31.6 H, MCHC 32.0, RDW 14.7, Plt Count 495 H, MPV 9.8, Neut % (Auto) 90.6 H, Lymph % (Auto) 5.7 L, Baldwin % (Auto) 3.1, Eos % (Auto) 0.5, Baso % (Auto) 3.2 H, Neut # (Auto) 74.2 H, Lymph # (Auto) 4.7 H, Baldwin # (Auto) 2.6 H, Eos # (Auto) 0.4, Baso # (Auto) 2.6 H, Total Counted 100, Neutrophils % (Manual) 82 H, Lymphocytes % (Manual) 14, Monocytes % (Manual) 4, Platelet Estimate Slight increase, Schistocytes 1+ 03/02/22 16:23: Sodium 137, Potassium 3.7, Chloride 102, Carbon Dioxide 23, Anion Gap 15.7 H, BUN 16, Creatinine 1.20, Estimated Creat Clear 85, Estimated GFR 60, Est GFR ( Amer) 73, Glucose 154 H, Calcium 9.4, Troponin I < 0.01 03/02/22 18:40: Activated Clotting Time 307 H* 03/02/22 19:00: Activated Clotting Time 242 H* D 03/02/22 23:30: Urine Color [place], Urine Appearance Clear, Urine pH 5.5, Ur Specific [place] 1.010, Urine Protein 1+, Urine Glucose (UA) Trace, Urine Ketones 1+, Urine Blood Trace-i, Urine Nitrate Positive, Urine Bilirubin Negative, Urine Urobilinogen 2.0, Ur Leukocyte Esterase Trace, Urine RBC 3-5, Urine WBC 5-10, Urine Bacteria 1+ 03/03/22 05:48: WBC 75.5 H*, RBC 3.80 L, Hgb 11.8 L D, Hct 35.8 L, MCV 94.3 H, MCH 31.1, MCHC 33.0, RDW 14.6, Plt Count 372, MPV 9.3, Neut % (Auto) 91.8 H, Lymph % (Auto) 4.5 L, Baldwin % (Auto) 3.5, Eos % (Auto) 0.2, Baso % (Auto) 3.0 H, Neut # (Auto) 69.3 H, Lymph # (Auto) 3.4, Baldwin # (Auto) 2.6 H, Eos # (Auto) 0.2, Baso # (Auto) 2.3 H, Total Counted 100, Neutr
--- NOTE | 2022-03-03 17:26 | PC.NURSE ---
Pt has rested well this shift. he has c/o slight nausea but denies chest pain throughout the shift. lungs are clear, bowel sounds are active in all quads. pt had 1 episode of diarrhea during the night, but has not had any further episodes. pt is able to ambulate to the restroom without assistance. drainage/shadowing on post cath bandage has not changed throughout the shift.
[2022-03-04] VITALS: PULSE 70
[2022-03-04 04:00] VITALS: BP 105/55; PULSE 64; PULSE 70; RESP 18; TEMP 37.2; O2SAT 93; BMI 30.8
[2022-03-04 07:18] LABS: Chloride 106 mmol/L (98-107); Potassium 3.7 mmoL/L (3.5-5.1); Sodium 136 mmol/L (136-145)
[2022-03-04 07:21] LABS: Alanine Aminotransferase 28 U/L (12-78); Albumin Level 3.5 g/dl (3.5-5.0); Albumin/Globulin Ratio 1.2 (1.1-1.8); Alkaline Phosphatase 72 U/L (38-126); Anion Gap 10.7 mEq/L (5-15); Aspartate Amino Transferase 45 U/L (17-59); Bilirubin,Total 0.6 mg/dl (0.2-1.3); Blood Urea Nitrogen 17 mg/dl (9-20); Carbon Dioxide 23 mmol/L (22.0-30.0); Creatinine Clearance Estimated 103 mL/min (50-200); Estimated Glomerular Filt Rate 84 ml/min (>60); GFR (African American) 102 ML/MIN (>60); Globulin 2.9 g/dL (1.3-3.2); Total Protein,Serum 6.4 g/dl (6.3-8.2)
[2022-03-04 07:22] LABS: Calcium 8.5 mg/dl (8.4-10.2); Glucose 115 mg/dl (74-100)
[2022-03-04 07:25] LABS: Basophils # 3.3 K/mm3 (0-0.2); Basophils % 3.8 % (0.1-2.0); Eosinophils # 0.3 K/mm3 (0.0-0.4); Eosinophils % 0.3 % (0.1-12.0); Hematocrit 38.8 % (42.0-52.0); Hemoglobin 12.5 g/dL (14.1-18.0); Lymphocytes # 3.4 K/mm3 (0.7-4.5); Lymphocytes % 3.9 % (10-50); Mean Corpuscular HGB Conc 32.2 g/dL (31.8-35.4); Mean Corpuscular Hemoglobin 30.5 pg (27.0-31.2); Mean Corpuscular Volume 94.7 fl (80-94); Mean Platelet Volume 9.3 fl (7.4-10.4); Monocytes # 2.2 K/mm3 (0.1-1.0); Monocytes % 2.5 % (1.7-9.3); Neutrophils # 81.5 K/mm3 (1.8-7.8); Neutrophils % 93.2 % (37.0-80.0); Platelet Count 350 K/mm3 (142-424); Red Cell Distribution Width 14.4 % (11.5-17.5)
[2022-03-04 07:40] VITALS: BP 107/66; PULSE 66; RESP 18; TEMP 36.9; O2SAT 95
[2022-03-04 07:45] LABS: White Blood Count 87.5 K/mm3 (4.8-10.8)
--- NOTE | 2022-03-04 07:45 | PC.NURSE ---
Spoke with Roxane from lab about critical WBC count
[2022-03-04 07:46] LABS: MANUAL DIFFERENTIAL MANUAL DIFFERENTIAL (MANUAL DIFF)
--- NOTE | 2022-03-04 07:48 | PC.NURSE ---
pt restless through the night, pt is alert and oriented x4, pt complained of constipation through the night and medicated with miralax and docusate, v/s remain stable, skin pwd, right radial dressing intact, no new drainage, pt complained of nausea through the evening
--- NOTE | 2022-03-04 07:54 | EXP.DC.SUM ---
General Admission date:: 03/02/22 Discharge date: 03/04/22 HPI HPI HPI: Mr. Kaufman is a 67-year-old male with a past medical history that is positive for CAD, h/o IN and previous history of PCI, Atrial Fibrillation, Hyperlipidemia and suspected CLL, followed by [facility]. [facility] through [facility] ER due to chest pain that occurred approximately 1 hour prior to presentation with associated left arm pain, shortness of air, nausea and diaphoresis. In the ER he was noted to be in a wide-complex tachycardia, he was sedated and controverted, following Cardioversion he was noted to have ST segment elevation in the anterior leads. A STEMI alert was called and he was taken to the [facility]. He underwent a radial approach. He was found to have significant stenosis in the mid LAD and underwent successful stenting with 2 contiguous drug-eluting stents. He is seen following his cath procedure. It is noted that he has an AICD and it did not fire, Cardiology recommendations will be implemented. He reports that he was just diagnosed with a UTI prior to the event earlier in the day. Urine will be sent for urinalysis and empiric antibiotic started. The plan of care was discussed with the patient and daughter at bedside on admission. Hospital Course Hospital Course Hospital Course: 67-year-old male with past medical history CAD with history of PCI, Atrial Fibrillation, HFrEF history of AICD/PPM, Hyperlipidemia and suspected CLL presents with acute onset of Chest Pain, found to be in Wide QRS Tachycardia that required Cardioversion, following event noted to have ST segment elevation and q waves taken to [facility] and underwent 2 contiguous drug-eluting stents to the mid-LAD.? Stable overnight.? Cardiology consulted, appreciate their recommendations.? Problems addressed as follows: STEMI/coronary artery disease Ischemic cardiomyopathy A. fib Hypertension Hyperlipidemia -Presented with wide-complex tachycardia. After cardioversion was found to have ST elevations in inferior and lateral leads. Cardiology consulted and STEMI alert was initiated and patient was taken to [facility] on 03/02. Received stenting to his LAD. Adjustments made to medical regimen for better heart rate control in the setting of A. fib. Increase metoprolol 200 mg twice a day. Continue on triple therapy with aspirin, Brilinta, Pradaxa for a month. Recommend stopping aspirin thereafter and continuing just Brilinta and Pradaxa. Continue high intensity statin with Lipitor. Patient's implanted cardiac device was interrogated, functioning appropriately based on threshold parameters. Patient was additionally initiated on amiodarone 400 mg twice a day for 3 weeks with plan to make further adjustments at outpatient follow-up. Continue Entresto twice daily as ordered. We will also continue eplerenone which is his home medication. Further adjustments deferred to cardiology at outpatient follow-up. Patient has been symptom-free with no further episodes of tachyarrhythmia on telemetry during admission. Leukocytosis -Per patient, secondary to suspected CML vs CLL.? Undergoing work-up at [facility].? Defer to outpatient setting. Nausea -Likely multifactorial with polypharmacy and blood thinners. Recent antibiotics complicate as well. No edwar emesis during admission. Discharged home on Protonix to ease gastritis. Continue Zofran. Recommend probiotic sources such as yogurt, kombucha, or supplement capsules. UTI -Has been treated with 2 rounds of antibiotics prior to coming in. It was based off of a urine dipstick. No cultures available to evaluate for pathogen. Given patient's CML/CLL as above, concern that he is spilling leukocytes in his urine causing false positive dipstick. Not having any urinary symptoms at this time. We will not continue antibiotics given his GI upset and having already completed multiple courses along with 3 doses of
[2022-03-04 07:56] VITALS: PULSE 70
--- NOTE | 2022-03-04 08:15 | PC.NURSE ---
Told Dr. Sharma about pts critical lab value
[2022-03-04 09:38] LABS: Eosinophils % 1 % (0-3); Lymphocytes % 10 % (10-50); Monocytes % 2 % (2-9); Myelocytes % 3 (0-1); Neutrophils % 67 % (42-76); Platelet Estimate Normal; Promyelocytes % 9 %; Total Cells Counted 100
[2022-03-04 09:39] LABS: Anisocytosis 1+; Ovalocytes 1+; Poikilocytosis 1+
--- NOTE | 2022-03-04 09:42 | EXP.PHA.CONS ---
Documented by User: Jackie Carlisle, PHARMD 03/04/22 09:43 Pharmacy Consult Date: 03/04/22 Time: 09:42 Referring provider: DR. MOHR Allergies Allergy/AdvReac Type Severity Reaction Status Date / Time Penicillins [PENICILLINS] Allergy Intermediate I-RASH Verified 05/15/22 12:12 Home Medications Medication Instructions Recorded Confirmed Type trazodone 50 mg tablet 50 mg PO HS Sleep 07/01/21 07/30/22 History atorvastatin 40 mg tablet 40 mg PO HS Cholesterol #30 tabs 03/09/22 07/30/22 Rx eplerenone 25 mg tablet 25 mg PO DAILY Hypertension #30 03/09/22 07/30/22 Rx tabs dasatinib 100 mg tablet (Sprycel) 100 mg PO DAILY chemotherapy 04/26/22 07/30/22 History ropinirole 1 mg tablet 2 mg PO HS restless leg syndrome 04/27/22 07/30/22 History furosemide 20 mg tablet (Lasix) 20 mg PO DAILY PRN edema #30 tabs 04/28/22 07/30/22 Rx aspirin 81 mg tablet 81 mg PO DAILY Heart disease 05/15/22 07/30/22 History dapagliflozin 10 mg tablet 10 mg PO DAILY Kidney 05/15/22 07/30/22 History (Farxiga) failure/heart disease rivaroxaban 15 mg tablet (Xarelto) 15 mg PO QPMWITHMEAL blood 07/30/22 07/31/22 History thinner/atrial fib Magic Mouthwash [Magic 15 ml PO ACHS ##0 08/04/22 Rx Mouthwash;240mL [place]] amiodarone 400 mg tablet 400 mg PO BID 30 days #60 tabs 08/04/22 Rx mexiletine 150 mg capsule 150 mg PO TIDWMEAL 30 days #90 caps 08/04/22 Rx nadolol 80 mg tablet 80 mg PO DAILY 30 days #30 tabs 08/04/22 Rx pantoprazole 40 mg tablet,delayed 40 mg PO DAILY 30 days #30 tabs 08/04/22 Rx release prochlorperazine maleate 5 mg 5 mg PO Q6HP PRN Nausea And 08/04/22 Rx tablet Vomiting 10 days #40 tabs sacubitril 24 mg-valsartan 26 mg 1 tab PO BID 30 days #60 tabs 08/04/22 Rx tablet (Entresto) sennosides 8.6 mg-docusate sodium 1 tab PO BID PRN Constipation 10 08/04/22 Rx 50 mg tablet (Stool days #20 tabs Softener-Stimulant Laxative) New Prescriptions to Start Prescriptions: Height: 1.83 m Weight: 103.136 kg Laboratory Results:: Laboratory Results - last 24 hr 03/04/22 06:49: WBC 87.5 H*, RBC 4.10 L, Hgb 12.5 L, Hct 38.8 L, MCV 94.7 H, MCH 30.5, MCHC 32.2, RDW 14.4, Plt Count 350, MPV 9.3, Neut % (Auto) 93.2 H, Lymph % (Auto) 3.9 L, [place] % (Auto) 2.5, Eos % (Auto) 0.3, Baso % (Auto) 3.8 H, Neut # (Auto) 81.5 H, Lymph # (Auto) 3.4, [place] # (Auto) 2.2 H, Eos # (Auto) 0.3, Baso # (Auto) 3.3 H, Total Counted 100, Neutrophils % (Manual) 67, Band Neutrophils % 2.0, Lymphocytes % (Manual) 10, Monocytes % (Manual) 2, Eosinophils % (Manual) 1, Metamyelocytes % 4.0 H, Myelocytes % 3 H, Promyelocytes % 9, Blast Cells % 2.0, Platelet Estimate Normal, Poikilocytosis 1+, Anisocytosis 1+, Ovalocytes 1+ 03/04/22 06:49: Sodium 136, Potassium 3.7, Chloride 106, Carbon Dioxide 23, Anion Gap 10.7, BUN 17, Creatinine 0.90, Estimated Creat Clear 103, Estimated GFR 84, Est GFR ( Amer) 102, Glucose 115 H, Calcium 8.5, Total Bilirubin 0.6, AST 45 D, ALT 28, Alkaline Phosphatase 72, Total Protein 6.4, Albumin 3.5, Globulin 2.9, Albumin/Globulin Ratio 1.2 Medical History: Medical History (Updated 03/02/22 @ 21:18 by Fernando Kendrick DNP) Atrial fibrillation CLL (chronic lymphocytic leukemia) Myocardial infarction Documented by User: Tin Mendoza PHARMD 08/18/22 11:42 Pharmacy Consult Reason for Consult:: DISCHARGE Allergies Allergy/AdvReac Type Severity Reaction Status Date / Time Penicillins [PENICILLINS] Allergy Intermediate I-RASH Verified 05/15/22 12:12 Home Medications Medication Instructions Recorded Confirmed Type trazodone 50 mg tablet 50 mg PO HS Sleep 07/01/21 07/30/22 History atorvastatin 40 mg tablet 40 mg PO HS Cholesterol #30 tabs 03/09/22 07/30/22 Rx eplerenone 25 mg tablet 25 mg PO DAILY Hypertension #30 03/09/22 07/30/22 Rx tabs dasatinib 100 mg tablet (Sprycel) 100 mg PO DAILY chemotherapy 04/26/22 05
--- NOTE | 2022-03-04 09:56 | P.CONPHA_ITS ---
PHA [facility] Discharge Med Chief Clerk Shelter: Josue Mandeep has received discharge medication counseling on the following medications: ASPIRIN, BRILINTA, METOPROLOL, ENTRESTO, ATORVASTATIN...AMIODARONE, PANTOPRAZOLE, DABIGATRAN, EPLERENONE, TRAZODONE...DC CARVEDILOL
[2022-03-04 11:25] VITALS: BP 116/68; PULSE 66; RESP 18; TEMP 36.9; O2SAT 96
[2022-03-04 20:58] LABS: Peripheral Smear Review Scanned Result
--- NOTE | 2022-03-07 12:11 | CARE MANAGER ---
Spoke with patient related to hospital discharge. He states he picked up his prescriptions and stopped taking the Carvedilol. He is aware of follow up appointments and denies questions or concerns at this time.
== END 2022-03-04 14:10 | disposition home or self-care (01) | DRG 247 ==
LOC: ER 17:02 → CATHLAB 17:35 → 2ND 18:16
PROVIDERS: Internal Medicine; Nurse Practitioner Family; Admitting Provider Internal Medicine Adolescent Medicine; Emergency Provider Emergency Medicine; Visit Provider Internal Medicine Adolescent Medicine
PROC: 027035Z Dilation of Coronary Artery, One Artery with Two Drug-eluting Intraluminal Devices, Percutaneous Approach (ICD-10-PCS; principal; 2022-03-02 17:15)
DX: I21.3 ST elevation (STEMI) myocardial infarction of unspecified site (principal); C91.10 Chronic lymphocytic leukemia of B-cell type not having achieved remission; I47.20 Ventricular tachycardia, unspecified; N39.0 Urinary tract infection, site not specified; I48.20 Chronic atrial fibrillation, unspecified; I50.22 Chronic systolic (congestive) heart failure; I25.10 Atherosclerotic heart disease of native coronary artery without angina pectoris; E78.5 Hyperlipidemia, unspecified; I25.2 Old myocardial infarction; I25.5 Ischemic cardiomyopathy; I11.0 Hypertensive heart disease with heart failure
CPT/HCPCS: C9600; 36415; 71045; 80048; 80053; 80061; 81001; 83735; 84484; 85007; 85025; 85347; 87086; 92928; 93005; 93306; 93454; 99152; 99291; C1725; C1760; C1769; C1876; J0696; J1644; J2405; Q9967

== ENCOUNTER → 2022-03-09 08:48 | Outpatient (CLI) | payer MEDICARE, MEDICAID, SELFPAY ==
[2022-03-09 09:44] LABS: Hematocrit 35.4 % (42.0-52.0); Hemoglobin 11.2 g/dL (14.1-18.0)
[2022-03-09 10:05] LABS: Blood Urea Nitrogen 23 mg/dl (9-20); Estimated Glomerular Filt Rate 67 ml/min (>60); GFR (African American) 81 ML/MIN (>60)
[2022-03-18 12:20] LABS: Interpretation: Positive (.); e14a2 (b3a2) transcript Comment: % (.)
== END ==
PROVIDERS: Internal Medicine Hematology & Oncology; PCP Family Medicine; Visit Provider Internal Medicine
DX: C92.10 Chronic myeloid leukemia, BCR/ABL-positive, not having achieved remission
CPT/HCPCS: 36415; 81206; 82565; 84520; 85014; 85018

== ENCOUNTER 2022-03-21 13:04 | Outpatient (RCR) | payer MEDICARE, MEDICAID, SELFPAY | END 2022-03-21 14:00 | disposition home or self-care (01) | LOC: PT 13:04 | PROVIDERS: Visit Provider Internal Medicine | DX: I25.10 Atherosclerotic heart disease of native coronary artery without angina pectoris (principal); Z95.5 Presence of coronary angioplasty implant and graft ==

== ENCOUNTER 2022-04-26 19:05 | Inpatient (IN) | payer MEDICARE, MEDICAID, SELFPAY ==
[2022-04-26] VITALS (23 sets, daily range): BP systolic 74–111; BP diastolic 41–89; PULSE 67–164; RESP 9–18; TEMP 36.6; O2SAT 92–99; BMI 29.1
--- NOTE | 2022-04-26 19:05 | ECG_ITS ---
APPROVED REPORT Exam: Resting ECG HR:140 bpm ECG Measurements Heart Rate 140 AXES [place] 176 P 115 QRSd 264 QRS -75 QT 397 T 137 QTc 478 Conclusion SINUS TACHYCARDIA, POSSIBLE ATRIAL FLUTTER INTRAVENTRICULAR CONDUCTION DELAY [130+ ms QRS DURATION] LATERAL MYOCARDIAL INFARCTION , PROBABLY RECENT [40+ ms Q WAVE AND/OR ST/T ABNORMALITY IN I/aVL/V5/V6] INFERIOR MYOCARDIAL INFARCTION , POSSIBLY ACUTE [40+ ms Q WAVE AND/OR ST/T ABNORMALITY IN II/aVF] MARKED ST ELEVATION, CONSIDER ANTERIOR INJURY [MARKED ST ELEVATION W/O NORMALLY INFLECTED T-WAVE IN V2-V5] ACUTE FL UNCONFIRMED REPORT Electronically signed by : Brenden Keita MD 04/27/2022 17:31:42
--- NOTE | 2022-04-26 19:11 | PC.NURSE ---
speaking with Dr. Nuñez
--- NOTE | 2022-04-26 19:13 | XR_ITS ---
PROCEDURE INFORMATION: Exam: XR Chest Exam date and time: 04/26/2022 7:59 PM Age: 67 years old Clinical indication: Pain; Shortness of breath; Left-sided; Prior surgery; Surgery date: 6+ months; Surgery type: Pacemaker 2016, cardiac stents 2020; Additional info: SOA, pain in left shoulder. TECHNIQUE: Imaging protocol: Radiologic exam of the chest. Views: 1 view. COMPARISON: CR XR CHEST PORTABLE 03/02/2022 5:03 PM FINDINGS: Tubes, catheters and devices: Cardiac pacemaker without gross hardware complication or change. Extrinsic leads/pads bilaterally. Lungs: Question slight hyperexpansion and hyperlucency with minimal diaphragmatic flattening suggesting possible COPD. Mild central vascular congestion. Question faint perihilar and basilar interstitial prominence and ground-glass attenuation which could reflect mild changes of bronchitis and interstitial pneumonitis, versus subsegmental atelectasis, versus mild interstitial and alveolar edema. Pleural spaces: No pleural effusion. No pneumothorax. Heart/Mediastinum: Heart size upper limits of normal. No tracheal/mediastinal shift. Bones/joints: No acute osseous abnormalities are identified. IMPRESSION: 1. Mild cardiomegaly and vascular congestion, with new mild bilateral perihilar and basilar interstitial and ground-glass attenuation, mild pulmonary edema versus bronchitis and pneumonitis, versus subsegmental atelectasis. No consolidations. 2. Suspect underlying COPD.
--- NOTE | 2022-04-26 19:14 | HMH.EDGENADL ---
Discharge Plan Disposition Patient Disposition: Still a Patient Prescriptions Prescriptions: No Action Brilinta 90 mg tablet 90 mg PO BID Qty: 60 12RF Entresto 97-103 mg tablet 1 tab PO BID Qty: 60 5RF metoprolol tartrate 100 mg tablet 100 mg PO BID Qty: 60 5RF eplerenone 25 mg tablet 25 mg PO DAILY Qty: 30 5RF atorvastatin 40 mg tablet 40 mg PO HS Qty: 30 5RF amiodarone 200 mg tablet 200 mg PO DAILY Qty: 90 3RF ropinirole 1 mg tablet 2 mg PO DAILY PRN (Reason: rls) Qty: 60 2RF Sprycel 100 mg tablet 100 mg PO DAILY trazodone 50 MG tablet 50 mg PO HS pantoprazole 40 mg tablet,delayed release (DR/EC) 40 mg PO DAILY 30 Days Qty: 30 0RF Clinical Impressions Clinical Impression: Atrial fibrillation Discharge ED Provider: Reji Shin General Adult HPI General Chief complaint: Chest Pain Stated complaint: chest pain Time Seen by Provider: 04/26/22 19:05 History of Present Illness HPI narrative: 67-year-old male presents with chest pain. He says the chest pain is left-sided dull nonradiating in nature. No fever no chills no cough. He also has felt like his heart has been racing a little bit. He has mild shortness of breath when he walks. He was evaluated at cardiology clinic this morning and they recommended stopping the Pradaxa because he had a GI bleed history Related Data Home Medications Medication Instructions Recorded Confirmed trazodone 50 mg tablet 50 mg PO HS Sleep 07/01/21 04/26/22 dasatinib 100 mg tablet (Sprycel) 100 mg PO DAILY 04/26/22 04/26/22 Previous Rx's Medication Instructions Recorded pantoprazole 40 mg tablet,delayed 40 mg PO DAILY 30 days #30 tabs 03/04/22 release atorvastatin 40 mg tablet 40 mg PO HS Cholesterol #30 tabs 03/09/22 eplerenone 25 mg tablet 25 mg PO DAILY Hypertension #30 03/09/22 tabs metoprolol tartrate 100 mg tablet 100 mg PO BID #60 tabs 03/09/22 sacubitril 97 mg-valsartan 103 mg 1 tab PO BID CHF #60 tabs 03/09/22 tablet (Entresto) ticagrelor 90 mg tablet (Brilinta) 90 mg PO BID #60 tabs 03/09/22 amiodarone 200 mg tablet 200 mg PO DAILY #90 tabs 03/27/22 ropinirole 1 mg tablet 2 mg PO DAILY PRN rls #60 tabs 03/27/22 Allergies Allergy/AdvReac Type Severity Reaction Status Date / Time Penicillins [PENICILLINS] Allergy Intermediate I-RASH Verified 04/26/22 11:13 [facility] Disclaimer: The information contained in this section may have been updated after the patient was seen, as this information can be updated by other users. Medical History Atrial fibrillation CLL (chronic lymphocytic leukemia) Leukemia Myocardial infarction Surgical History AICD (automatic cardioverter/defibrillator) present History of cardiac radiofrequency ablation (RFA) History of percutaneous coronary intervention Family History Other Family history of hyperlipidemia Family history of hypertension Family history of myocardial infarction Social History Smoking Status: Never smoker alcohol intake: never substance use type: other current occupational status: retired Travel in the last 8 weeks: Inside the [place] household members: spouse housing: house caffeine: Yes ROS Obtained: Yes All systems reviewed & no additional complaints except as documented Constitutional Constitutional: Denies fatigue Eyes Eyes: Denies dry eyes and Denies itchy eyes ENT Ears, Nose, Mouth, and Throat: Denies dry mouth Cardiovascular Cardiovascular: Denies diaphoresis and Denies dyspnea Respiratory Respiratory: Denies dyspnea Gastrointestinal Gastrointestingal: Denies constipation Genitourinary Male Genitourinary: Denies flank pain Musculoskeletal Musculoskeletal: Denies arthralgias Integumentary/Br
[2022-04-26 19:18] LABS: Basophils # 0.6 K/mm3 (0-0.2); Basophils % 1.5 % (0.1-2.0); Eosinophils # 0.6 K/mm3 (0.0-0.4); Eosinophils % 1.5 % (0.1-12.0); Hematocrit 33.6 % (42.0-52.0); Hemoglobin 11.2 g/dL (14.1-18.0); Lymphocytes # 3.5 K/mm3 (0.7-4.5); Lymphocytes % 8.8 % (10-50); Mean Corpuscular HGB Conc 33.2 g/dL (31.8-35.4); Mean Corpuscular Hemoglobin 31.1 pg (27.0-31.2); Mean Corpuscular Volume 93.7 fl (80-94); Mean Platelet Volume 9.2 fl (7.4-10.4); Monocytes # 0.7 K/mm3 (0.1-1.0); Monocytes % 1.7 % (1.7-9.3); Neutrophils # 33.9 K/mm3 (1.8-7.8); Neutrophils % 86.5 % (37.0-80.0); Platelet Count 576 K/mm3 (142-424); Red Blood Count 3.59 M/mm3 (4.60-6.20); Red Cell Distribution Width 15.3 % (11.5-17.5)
[2022-04-26 19:18] LABS: Coronavirus 19, PCR Not Detected (NotDetected); Influenza A, PCR Not Detected (NotDetected); Influenza B, PCR Not Detected (NotDetected)
--- NOTE | 2022-04-26 19:20 | PC.NURSE ---
metoprolol 5 mg no resolve
--- NOTE | 2022-04-26 19:20 | PC.NURSE ---
at BS speaking with pt
[2022-04-26 19:25] LABS: Chloride 110 mmol/L (98-107); Potassium 3.9 mmoL/L (3.5-5.1); Sodium 141 mmol/L (136-145)
[2022-04-26 19:28] LABS: Anion Gap 11.9 mEq/L (5-15); Blood Urea Nitrogen 26 mg/dl (9-20); Carbon Dioxide 23 mmol/L (22.0-30.0); Creatinine Clearance Estimated 81 mL/min (50-200); Estimated Glomerular Filt Rate 60 ml/min (>60); GFR (African American) 73 ML/MIN (>60)
[2022-04-26 19:28] LABS: MANUAL DIFFERENTIAL MANUAL DIFFERENTIAL (MANUAL DIFF)
[2022-04-26 19:29] LABS: Calcium 8.6 mg/dl (8.4-10.2); Glucose 148 mg/dl (74-100); Magnesium 2.2 mg/dl (1.6-2.3)
--- NOTE | 2022-04-26 19:35 | PC.NURSE ---
2nd 5 mg Metoprolol no resolve in symptoms
[2022-04-26 19:38] LABS: NT Pro Brain Natriuretic Pep. 519 pg/mL (0-125)
[2022-04-26 19:46] LABS: Troponin I < 0.01 ng/ml (0.00-0.034)
--- NOTE | 2022-04-26 19:46 | PC.NURSE ---
RAD at for CXR
[2022-04-26 20:00] LABS: Thyroid Stimulating Hormone 3.92 uIU/mL (0.465-4.68)
[2022-04-26 20:40] LABS: Eosinophils % 2 % (0-3); Lymphocytes % 18 % (10-50); Monocytes % 1 % (2-9); Neutrophils % 79 % (42-76); Platelet Estimate Normal; Stomatocytes 1+; Total Cells Counted 100
--- NOTE | 2022-04-26 20:51 | PC.NURSE ---
Dr. Chairez at
--- NOTE | 2022-04-26 21:03 | PC.NURSE ---
2nd metoprolol 5 mg no resolve in symptoms
--- NOTE | 2022-04-26 21:05 | PC.NURSE ---
amiodarone 150mg given no resolve in symptoms notified . [place] consulted on sync @50
--- NOTE | 2022-04-26 21:19 | PC.NURSE ---
shock delivered at 2119 @50j successful cardioversion
--- NOTE | 2022-04-26 21:21 | ECG_ITS ---
APPROVED REPORT Exam: Resting ECG HR:65 bpm ECG Measurements Heart Rate 65 AXES MI 204 P 59 QRSd 116 QRS 15 QT 375 T 120 QTc 386 Conclusion SINUS RHYTHM LOW QRS VOLTAGE IN PRECORDIAL LEADS Old ant/inferior changes Abormal ecg UNCONFIRMED REPORT Electronically signed by : Brenden Keita MD 04/27/2022 08:01:04
--- NOTE | 2022-04-26 21:24 | PC.NURSE ---
Dr Nuñez paged at this time
--- NOTE | 2022-04-26 21:25 | PC.NURSE ---
KAYLYNN CAUSEY speaking with [place] at this time
--- NOTE | 2022-04-26 22:45 | EXP.HP ---
History of Present Illness *Admission Date: 04/26/22 *Reason for visit:: Chest Pain *History of present illness: Mr. Kaufman is a 67-year-old male with past medical history that is significant to this hospitalization for CAD with STEMI and need for drug-eluting stent in 02/2022, hematochezia on recent medications, HFrEF (combined systolic and diastolic dysfunction), recent diagnosis of CML. [facility] due to chest pain. He was found to be in a wide-complex tachycardia. Amiodarone and Metoprolol were given with no improvement in rate. He was cardioverted in the ER and went into NSR. Cardiology has been consulted and the case was discussed with Cardiology who will follow him in the morning. Echo will be ordered per Cardiology recommendations. The plan of care was discussed with the patient and at bedside. Both verbalized understanding and agreement with the plan of care. [facility] Disclaimer: The information contained in this section may have been updated after the patient was seen, as this information can be updated by other users. Medical History Atrial fibrillation CLL (chronic lymphocytic leukemia) Leukemia Myocardial infarction Surgical History AICD (automatic cardioverter/defibrillator) present History of cardiac radiofrequency ablation (RFA) History of percutaneous coronary intervention Family History Other Family history of hyperlipidemia Family history of hypertension Family history of myocardial infarction Social History Smoking Status: Never smoker alcohol intake: never substance use type: other current occupational status: retired Travel in the last 8 weeks: [place] the [place] household members: spouse housing: house caffeine: Yes Review of Systems Review of Systems Review of systems:: pertinent systems reviewed and negative unless documented below Constitutional Constitutional: Reports system reviewed and no additional complaints, except as documented Eyes Eyes: Reports system reviewed and no additional complaints, except as documented ENT Ears, Nose, Mouth, and Throat: Reports system reviewed and no additional complaints, except as documented *Cardiovascular Cardiovascular: Reports chest pain and Reports irregular heart rhythm *Respiratory Respiratory: Reports system reviewed and no additional complaints, except as documented *Gastrointestinal Gastrointestinal: Reports system reviewed and no additional complaints, except as documented *Genitourinary Genitourinary: Reports system reviewed and no additional complaints, except as documented *Musculoskeletal Musculoskeletal: Reports system reviewed and no additional complaints, except as documented Integumentary/Breasts Skin/Breast: Reports system reviewed and no additional complaints, except as documented *Neurologic Neurologic: Reports system reviewed and no additional complaints, except as documented and Denies confusion Psychiatric Psychiatric: Reports system reviewed and no additional complaints, except as documented and Denies confusion Endocrine Endocrine: Reports system reviewed and no additional complaints, except as documented Hematologic/Lymphatic Hematologic/Lymphatic: Reports system reviewed and no additional complaints, except as documented Allergic/Immunologic Allergic/Immunologic: Reports system reviewed and no additional complaints, except as documented Meds Home Medications and Allergies Home Medications Medication Instructions Recorded Confirmed Type trazodone 50 mg tablet 50 mg PO HS Sleep 07/01/21 04/26/22 History pantoprazole 40 mg tablet,delayed 40 mg PO DAILY 30 days #30 tabs 03/04/22 04/26/22 Rx release atorvastatin 40 mg tablet 40 mg PO HS Ch
[2022-04-26 23:13] LABS: Troponin I 0.01 ng/ml (0.00-0.034)
--- NOTE | 2022-04-26 23:27 | PC.NURSE ---
Pt arrived to floor via stretcher @ 1311.
[2022-04-27] VITALS (13 sets, daily range): BP systolic 83–124; BP diastolic 39–82; PULSE 60–80; RESP 14–20; TEMP 36.6–36.9; O2SAT 96–100; BMI 29.1
[2022-04-27 01:43] LABS: Troponin I 0.03 ng/ml (0.00-0.034)
--- NOTE | 2022-04-27 07:00 | CA_ITS ---
APPROVED REPORT EXAM: Comprehensive 2D, Doppler, and color-flow Echocardiogram Road Grader Operator: Fannie Shin CRT Ht: 6 ft 0 in Wt: 215lbs BSA: 2.20 BP: 83/39 mmHg Indications: Atrial Fibrillation, Hyperlipidemia, AICD, Ablation, stemi stents 03/09, CHF, EF 20% 03/02/22 echo 2D Dimensions LVOT 2.02 cm (M/F) 1.5-2.5 M-Mode Dimensions RVDd 3.23 cm (0.9-2.6) LA Diam 3.62 cm (1.9-4.0) LVDd 5.52 cm (3.5-5.7) Ao Diam 4.27 cm (2.0-3.7) LVDs 4.12 cm (3.5-5.7) IVSd 1.71 cm (0.6-1.1) PWd 0.97 cm (0.6-1.1) EF (Teich) 49.50% FS 25.40% EDV (Teich) 148.70 mL ESV (Teich) 75.10 mL Conclusion 1. Limited echocardiogram was performed to evaluate left ventricular systolic function. 2. Estimated ejection fraction 25%, there is marked hypokinesis involving mid to distal septum, anterior, anterior apical and apical wall. 3. No significant pericardial effusion noted. Electronically signed by : Hao Guzman MD 04/28/2022 16:57:33
--- NOTE | 2022-04-27 09:04 | HMH.PHAINT1 ---
Pharmacy Intervention Comments: HOME MEDICATION LIST VERIFIED USING LIST FROM OUTPATIENT PHARMACY NAD PT INTERVIEW
--- NOTE | 2022-04-27 09:08 | EXP.PN ---
Subjective *Date: 04/27/22 *Time: 19:14 Interval history: Date of service April 27, 2022 The patient reports no acute events since admission. Nursing staff report that he remains afebrile with stable vital signs and saturating appropriately on room air. His troponin trend has been negative x3. Cardiology has evaluated the patient. Plans are to currently interrogate his pacemaker. We have reviewed and discussed his laboratory studies. I have personally interpreted his CBC identifying an improved leukocytoses on his immunotherapy for CML. His hemoglobin is 11.2 and his hematocrit is 34. His platelet count is 576. His electrolytes are normal. His BUN is 26 and his creatinine is 1.2. His glucose is 148. I have reviewed and discussed the cardiology plan with his tar heater operator and PA including pacemaker interrogation and assessing current settings. Exam Data for Last 24 hours Vital signs and Labs for Last 24 Hours: Temp Pulse Resp BP Pulse Ox 97.9 F 68 16 105/61 L 98 04/27/22 07:45 04/27/22 07:00 04/27/22 07:00 04/27/22 07:00 04/27/22 07:00 Laboratory Results - last 24 hr 04/26/22 19:08: WBC 39.0 H*, RBC 3.59 L, Hgb 11.2 L, Hct 33.6 L, MCV 93.7, MCH 31.1, MCHC 33.2, RDW 15.3, Plt Count 576 H, MPV 9.2, Neut % (Auto) 86.5 H, Lymph % (Auto) 8.8 L, [place] % (Auto) 1.7, Eos % (Auto) 1.5, Baso % (Auto) 1.5, Neut # (Auto) 33.9 H, Lymph # (Auto) 3.5, [place] # (Auto) 0.7, Eos # (Auto) 0.6 H, Baso # (Auto) 0.6 H, Total Counted 100, Neutrophils % (Manual) 79 H, Lymphocytes % (Manual) 18, Monocytes % (Manual) 1 L, Eosinophils % (Manual) 2, Platelet Estimate Normal, RBC Morphology Not Reportable, Stomatocytes 1+ 04/26/22 19:13: SARS-CoV-2 (PCR) Not detected, Influenza A Untype (PCR) Not detected, Influenza Type B (PCR) Not detected 04/26/22 22:14: Troponin I 0.01 04/26/22 : Sodium 141, Potassium 3.9, Chloride 110 H, Carbon Dioxide 23, Anion Gap 11.9, BUN 26 H, Creatinine 1.20, Estimated Creat Clear 81, Estimated GFR 60, Est GFR ( Amer) 73, Glucose 148 H, Calcium 8.6, Magnesium 2.2, Troponin I < 0.01, NT-Pro-B Natriuret Pep 519 H, TSH 3.92 04/27/22 01:03: Troponin I 0.03 I & O for Last 24 hours: Intake & Output 04/24/22 04/25/22 04/26/22 04/27/22 23:59 23:59 23:59 23:59 Intake Total 0 / 0 Balance 0 / 0 Weight 97.522 kg 97.552 kg Constitutional Constitutional: no acute distress and cooperative *Routine HEENT Exam Head: Present normocephalic Eye: Present EOMI and PERRL ENT: Present mucous membranes moist *Routine Neck Exam Neck: Present supple; Absent lymphadenopathy *Routine Respiratory Exam Respiratory: Present rhonchi, normal respiratory effort and symmetric chest movement *Routine Cardiovascular Exam Cardiovascular: Present RRR *Routine Abdominal Exam Abdominal: Present soft and normoactive bowel sounds; Absent tenderness *Routine Extremities Exam Extremities: Absent cyanosis, clubbing or edema *Routine Skin Exam Skin: Present warm; Absent rash *Routine Neurological Exam Neurological: Present alert, oriented X3, vision grossly intact, hearing grossly intact and normal speech Routine Psychiatric Exam Psychiatric: Present normal affect, cooperative and good insight Assessment and Plan *Assessment and plan (1) Wide-complex tachycardia: Status: Acute Category: Medical Code(s): R00.0 - Tachycardia, unspecified (2) Heart failure with reduced ejection fraction: Status: Acute Category: Medical Code(s): I50.20 - Unspecified systolic (congestive) heart failure (3) CML (chronic myelocytic leukemia): Status: Acute Category: Medical Code(s): C92.10 - Chronic myeloid leukemia, BCR/ABL-positive, not having achieved remission (4) History of GI bleed: Status: Acute Category: Medical Code(s): Z87.19 - Personal history of other diseases of the digestive system (5) CAD (coronary artery disease): Status: Acute Category: Medic
--- NOTE | 2022-04-27 14:42 | EXP.CARD.CON ---
History of Present Illness History of Present Illness Consult date: 04/27/22 Requesting physician: Aubrey Hager Chief complaint: chest pain History of present illness: This is a 67-year-old white gentleman who presented to the emergency department with complaints of chest pain. The patient said he had sudden onset of chest pain and feeling like his heart was racing. He states his vision went black and he did not feel well and decided to come into the emergency department. The patient was found to have a wide-complex tachycardia. While in the emergency department amiodarone and metoprolol were given with no improvement in heart rate. Cardiology was consulted over the phone. He was subsequently cardioverted in the ER and went into normal sinus rhythm with a rate in the 60s. This morning he denies any chest pain or pressure. He denies any fever, chills, nausea, vomiting, diarrhea, PND orthopnea. The patient does have some shortness of breath. He states that this is worse with exertion and does improve with rest. During the night his EKG looked like it may have been atrial flutter with aberrancy versus ventricular tachycardia. However, his [place] AICD was interrogated this morning and no events were noted. We did have the [employer] rep, Sterling Reilly, look at the patient's interrogation. This was most likely an atrial tachycardia with a block and probably intermittent left bundle branch block versus slow ventricular tachycardia. [facility] Disclaimer: The information contained in this section may have been updated after the patient was seen, as this information can be updated by other users. Medical History (Updated 04/27/22 @ 14:53 by Izabel Gomez APRN) Atrial fibrillation Atrial fibrillation Atrial tachycardia Cardiac arrhythmia Chemotherapy induced nausea and vomiting CML (chronic myelocytic leukemia) Coronary artery disease DVT (deep venous thrombosis) GERD (gastroesophageal reflux disease) History of GI bleed Hyperlipidemia Hypertension Ischemic cardiomyopathy with implantable cardioverter-defibrillator (ICD) Leukemia Myocardial infarction Pacemaker PNA (pneumonia) Pulmonary edema Ventricular tachycardia Surgical History AICD (automatic cardioverter/defibrillator) present History of cardiac radiofrequency ablation (RFA) History of percutaneous coronary intervention Family History (Updated 04/27/22 @ 00:03 by Kayleigh Aguilera RN) Other Cancer Family history of hyperlipidemia Family history of hypertension Family history of myocardial infarction Social History Smoking Status: Never smoker alcohol intake: never substance use type: other current occupational status: retired Travel in the last 8 weeks: Inside the [place] household members: spouse housing: house caffeine: Yes Review of Systems Review of Systems Review of systems:: pertinent systems reviewed and negative unless documented below Constitutional Constitutional: Reports system reviewed and no additional complaints, except as documented Eyes Eyes: Reports system reviewed and no additional complaints, except as documented and Reports blurry vision ENT Ears, Nose, Mouth, and Throat: Reports system reviewed and no additional complaints, except as documented *Cardiovascular Cardiovascular: Reports system reviewed and no additional complaints, except as documented, Reports as per HPI, Reports chest pain, Reports chest pain at rest, Reports chest pain with activity and Reports palpitations *Respiratory Respiratory: Reports system reviewed and no additional complaints, except as documented *Gastrointestinal Gastrointestinal: Reports system reviewed and no additional complaints, except as documented *Genitourinary Genitourinary: Reports system reviewed and no additional complaints, except as documented *Musculoskeletal Muscu
--- NOTE | 2022-04-27 19:50 | PC.NURSE ---
Addendum entered by Ruba George RN 04/27/22 20:27: home meds gave to pharm, pharm packaged and put in omni. remander of meds locked in pts med drawer. Original Note: since receiving report on pt, no c/o or concerns. alert x 4, RA tolerating well as pt is not on o2 at home. vss, pt noticed a bruise on the inner palm/thumb of rt hand. pt states he doesnt know when it happened, he just noticed it today.
[2022-04-28] VITALS: BP 139/79; PULSE 70; PULSE 71; RESP 18; TEMP 37.1; O2SAT 94
[2022-04-28 04:00] VITALS: BP 101/65; PULSE 70; PULSE 71; RESP 16; TEMP 36.6; O2SAT 96; BMI 28.8
[2022-04-28 07:34] LABS: Basophils # 0.5 K/mm3 (0-0.2); Basophils % 1.3 % (0.1-2.0); Eosinophils # 0.3 K/mm3 (0.0-0.4); Eosinophils % 0.8 % (0.1-12.0); Hematocrit 30.4 % (42.0-52.0); Hemoglobin 9.9 g/dL (14.1-18.0); Lymphocytes # 2.6 K/mm3 (0.7-4.5); Lymphocytes % 6.8 % (10-50); Mean Corpuscular HGB Conc 32.4 g/dL (31.8-35.4); Mean Corpuscular Hemoglobin 30.1 pg (27.0-31.2); Mean Corpuscular Volume 92.8 fl (80-94); Mean Platelet Volume 9.9 fl (7.4-10.4); Monocytes # 0.6 K/mm3 (0.1-1.0); Monocytes % 1.6 % (1.7-9.3); Neutrophils # 34.2 K/mm3 (1.8-7.8); Neutrophils % 89.6 % (37.0-80.0); Platelet Count 363 K/mm3 (142-424); Red Blood Count 3.28 M/mm3 (4.60-6.20); Red Cell Distribution Width 15.6 % (11.5-17.5); White Blood Count 38.1 K/mm3 (4.8-10.8)
[2022-04-28 07:40] LABS: Chloride 111 mmol/L (98-107); Sodium 140 mmol/L (136-145)
[2022-04-28 07:41] LABS: MANUAL DIFFERENTIAL MANUAL DIFFERENTIAL (MANUAL DIFF); Potassium 3.7 mmoL/L (3.5-5.1)
[2022-04-28 07:43] LABS: Alanine Aminotransferase 32 U/L (12-78); Albumin Level 3.6 g/dl (3.5-5.0); Alkaline Phosphatase 61 U/L (38-126); Anion Gap 8.7 mEq/L (5-15); Aspartate Amino Transferase 38 U/L (17-59); Bilirubin,Direct 0.2 mg/dl (0.0-0.4); Bilirubin,Indirect 0.5 mg/dL (0.0-0.9); Bilirubin,Total 0.7 mg/dl (0.2-1.3); Bilirubin,Unconjugated 0.5 mg/dL (0.0-1.1); Blood Urea Nitrogen 21 mg/dl (9-20); Calcium 7.9 mg/dl (8.4-10.2); Carbon Dioxide 24 mmol/L (22.0-30.0); Cholesterol 101 mg/dl (140-200); Creatinine Clearance Estimated 96 mL/min (50-200); Estimated Glomerular Filt Rate 74 ml/min (>60); GFR (African American) 90 ML/MIN (>60); Glucose 128 mg/dl (74-100); Total Protein,Serum 6.4 g/dl (6.3-8.2); Triglycerides 120 mg/dl (30-150); VLDL Cholesterol 24 mg/dL (0-40)
[2022-04-28 07:44] LABS: Chol/HDL Ratio 3.7 (1-3.5); HDL Cholesterol 27 mg/dl (40-60)
[2022-04-28 08:00] VITALS: BP 128/74; PULSE 70; PULSE 71; RESP 18; TEMP 36.4; O2SAT 100; O2SAT 97
[2022-04-28 08:43] LABS: Anisocytosis 1+; Lymphocytes % 8 % (10-50); Monocytes % 5 % (2-9); Neutrophils % 82 % (42-76); Ovalocytes 1+; Platelet Estimate Normal; Total Cells Counted 100
--- NOTE | 2022-04-28 09:55 | PC.NURSE ---
pt has requested to hold off on medications at this time because he was nauseous earlier
[2022-04-28 12:00] VITALS: BP 130/80; PULSE 73; RESP 16; TEMP 36.7; O2SAT 99
[2022-04-28 12:03] VITALS: PULSE 80
--- NOTE | 2022-04-28 12:15 | EXP.CARD.PN ---
Subjective Subjective Date: 04/28/22 Time: 11:30 Principal diagnosis: chest pain, chf Interval history: This is a 67-year-old white gentleman who presented to the emergency department complaints of chest pain. The patient was found to be in a wide-complex tachycardia that was presumed to be atrial flutter with aberrancy versus ventricular tachycardia. The patient was given amiodarone and metoprolol without improvement in his heart rate. He was subsequently cardioverted back to sinus rhythm in the 60s. The patient's [place] AICD was interrogated yesterday which showed no events. After further evaluation by the [employer] rep, Sterling Coleman, it appeared that the patient was most likely an atrial tachycardia with a block and intermittent left bundle branch block versus slow ventricular tachycardia. His AICD was optimized yesterday to be able to catch these events to know exactly what is going on. He was diuresed with IV Lasix overnight because his chest x-ray did show pulmonary edema. He states that he diuresed a significant amount overnight but his intake and output is not accurate this morning. He denies any chest pain or pressure. He denies any shortness of breath or edema. He denies any fever, chills, nausea, vomiting, diarrhea, PND or orthopnea. Exam Data for Last 24 hours Vital signs and Labs for Last 24 Hours: Temp Pulse Resp BP Pulse Ox 97.5 F L 71 18 128/74 100 04/28/22 08:00 04/28/22 08:00 04/28/22 08:00 04/28/22 08:00 04/28/22 08:00 Laboratory Results - last 24 hr 04/28/22 06:35: WBC 38.1 H*, RBC 3.28 L, Hgb 9.9 L, Hct 30.4 L, MCV 92.8, MCH 30.1, MCHC 32.4, RDW 15.6, Plt Count 363 D, MPV 9.9, Neut % (Auto) 89.6 H, Lymph % (Auto) 6.8 L, [place] % (Auto) 1.6 L, Eos % (Auto) 0.8, Baso % (Auto) 1.3, Neut # (Auto) 34.2 H, Lymph # (Auto) 2.6, [place] # (Auto) 0.6, Eos # (Auto) 0.3, Baso # (Auto) 0.5 H, Total Counted 100, Neutrophils % (Manual) 82 H, Band Neutrophils % 4.0, Lymphocytes % (Manual) 8 L, Monocytes % (Manual) 5, Metamyelocytes % 1.0, Platelet Estimate Normal, Anisocytosis 1+, Ovalocytes 1+ 04/28/22 06:35: Sodium 140, Potassium 3.7, Chloride 111 H, Carbon Dioxide 24, Anion Gap 8.7, BUN 21 H, Creatinine 1.00, Estimated Creat Clear 96, Estimated GFR 74, Est GFR ( Amer) 90 D, Glucose 128 H, Calcium 7.9 L, Total Bilirubin 0.7, Direct Bilirubin 0.2, Conjugated Bilirubin 0.0, Indirect Bilirubin 0.5, Unconjugated Bilirubin 0.5, AST 38, ALT 32, Alkaline Phosphatase 61, Total Protein 6.4, Albumin 3.6, Triglycerides 120, Cholesterol 101 L, LDL Cholesterol Direct 54.70 L, VLDL Cholesterol 24, HDL Cholesterol 27 L, Cholesterol/HDL Ratio 3.7 H I & O for Last 24 hours: Intake & Output 04/25/22 04/26/22 04/27/22 04/28/22 23:59 23:59 23:59 23:59 Intake Total 240 / 240 Output Total 0 / 0 0 / 0 Balance 240 / 240 0 / 0 Weight 215 lb 215 lb 1.045 oz 212 lb 6.4 oz Narrative: Telemetry strip is sinus rhythm Constitutional Constitutional: no acute distress and average body habitus *Routine HEENT Exam Head: Present normocephalic and atraumatic ENT: Present mucous membranes moist *Routine Neck Exam Neck: Present supple, full ROM and normal carotid upstroke; Absent JVD, carotid bruit or lymphadenopathy *Routine Respiratory Exam Respiratory: Present CTA bilaterally, normal respiratory effort, able to speak in complete sentences and symmetric chest movement *Routine Cardiovascular Exam Cardiovascular: Present RRR, Normal S1 and Normal S2; Absent murmur or gallop *Routine Abdominal Exam Abdominal: Present soft and normoactive bowel sounds; Absent tenderness, distended or organomegaly *Routine Extremities Exam Extremities: Present full ROM, pulses intact and normal capillary refill; Absent cyanosis, clubbing or edema *Routine Skin Exam Skin: Present intact and warm; Absent erythema *Routine Neurological Exam Neurological: Present alert, oriented X3 and CN II-XII intact; Absent sensory deficit or motor deficit
--- NOTE | 2022-04-28 14:16 | EXP.DC.SUM ---
General Admission date:: 04/26/22 Discharge date: 04/28/22 HPI HPI HPI: Mr. Kaufman is a 67-year-old male with past medical history that is significant to this hospitalization for CAD with STEMI and need for drug-eluting stent in 02/2022, hematochezia on recent medications, HFrEF (combined systolic and diastolic dysfunction), recent diagnosis of CML. He presented to [facility] through the ER due to chest pain. He was found to be in a wide-complex tachycardia. Amiodarone and Metoprolol were given with no improvement in rate. He was cardioverted in the ER and went into NSR. Cardiology has been consulted and the case was discussed with Cardiology who will follow him in the morning. Echo will be ordered per Cardiology recommendations. The plan of care was discussed with the patient and at bedside. Both verbalized understanding and agreement with the plan of care. Hospital Course Hospital Course Hospital Course: The patient is admitted to the medical unit with telemetry and cardiology consultation. His admission chest x-ray identifies pulmonary edema and COPD. An echocardiogram from February 2022 identifies an ejection fraction of 20% with grade 2 diastolic dysfunction. He was started on IV loop diuretic therapy for diuresing and reported effective output and improved dyspnea. Cardiology recommended AICD interrogation which identified concerns for atrial tachycardia. With his recent melena and concerns for GI bleeding his Pradaxa therapy was held until his cardiac arrhythmia is assessed further. He will continue with his P2Y12 inhibitor therapy and PPI therapy. His laboratory studies and inflammatory markers were trended and identified stability. He oxygenated well on room air. The patient identified improvement and inquired about discharge home. His was at bedside for discharge planning. He will be discharged on his antiarrhythmics including beta-jose therapy and as needed use of loop diuretic therapy. He understands to weigh himself daily and follow recommendations on loop diuretic use as described by cardiology. He will follow-up with his PCP in 1 week and cardiology as scheduled. Exam Data for Last 24 hours Vital signs and Labs for Last 24 Hours: Temp Pulse Resp BP Pulse Ox 98.0 F 73 16 130/80 99 04/28/22 12:00 04/28/22 12:00 04/28/22 12:00 04/28/22 12:00 04/28/22 12:00 Laboratory Results - last 24 hr 04/28/22 06:35: WBC 38.1 H*, RBC 3.28 L, Hgb 9.9 L, Hct 30.4 L, MCV 92.8, MCH 30.1, MCHC 32.4, RDW 15.6, Plt Count 363 D, MPV 9.9, Neut % (Auto) 89.6 H, Lymph % (Auto) 6.8 L, [place] % (Auto) 1.6 L, Eos % (Auto) 0.8, Baso % (Auto) 1.3, Neut # (Auto) 34.2 H, Lymph # (Auto) 2.6, [place] # (Auto) 0.6, Eos # (Auto) 0.3, Baso # (Auto) 0.5 H, Total Counted 100, Neutrophils % (Manual) 82 H, Band Neutrophils % 4.0, Lymphocytes % (Manual) 8 L, Monocytes % (Manual) 5, Metamyelocytes % 1.0, Platelet Estimate Normal, Anisocytosis 1+, Ovalocytes 1+ 04/28/22 06:35: Sodium 140, Potassium 3.7, Chloride 111 H, Carbon Dioxide 24, Anion Gap 8.7, BUN 21 H, Creatinine 1.00, Estimated Creat Clear 96, Estimated GFR 74, Est GFR ( Amer) 90 D, Glucose 128 H, Calcium 7.9 L, Total Bilirubin 0.7, Direct Bilirubin 0.2, Conjugated Bilirubin 0.0, Indirect Bilirubin 0.5, Unconjugated Bilirubin 0.5, AST 38, ALT 32, Alkaline Phosphatase 61, Total Protein 6.4, Albumin 3.6, Triglycerides 120, Cholesterol 101 L, LDL Cholesterol Direct 54.70 L, VLDL Cholesterol 24, HDL Cholesterol 27 L, Cholesterol/HDL Ratio 3.7 H I & O for Last 24 hours: Intake & Output 04/25/22 04/26/22 04/27/22 04/28/22 23:59 23:59 23:59 23:59 Intake Total 240 / 240 360 / 360 Output Total 0 / 0 0 / 0 Balance 240 / 240 360 / 360 Weight 97.522 kg 97.552 kg 96.343 kg Constitutional Constitutional: no acute distress and cooperative *Routine HEENT Exam Head: Present normocephalic Eye: Present EOMI and PERRL ENT: Present mucous membranes moist
== END 2022-04-28 15:15 | disposition home or self-care (01) | DRG 308 ==
LOC: ER 21:39 → 2ND 23:18
PROVIDERS: Nurse Practitioner Family; Admitting Provider Internal Medicine Adolescent Medicine; Emergency Provider Emergency Medicine; PCP Family Medicine; Visit Provider Internal Medicine Adolescent Medicine
DX: I47.1 Supraventricular tachycardia (principal); I50.21 Acute systolic (congestive) heart failure; C92.10 Chronic myeloid leukemia, BCR/ABL-positive, not having achieved remission; I25.2 Old myocardial infarction; Z95.810 Presence of automatic (implantable) cardiac defibrillator; I25.10 Atherosclerotic heart disease of native coronary artery without angina pectoris; Z95.5 Presence of coronary angioplasty implant and graft; I11.0 Hypertensive heart disease with heart failure; I25.5 Ischemic cardiomyopathy; I48.0 Paroxysmal atrial fibrillation; K21.9 Gastro-esophageal reflux disease without esophagitis; Z86.718 Personal history of other venous thrombosis and embolism
CPT/HCPCS: 36415; 71045; 80048; 80061; 80076; 83735; 83880; 84443; 84484; 85007; 85025; 92960; 93005; 93308; 99285; C9803; J0282; J2405; U0003; U0005

== ENCOUNTER 2022-05-01 12:19 | Emergency (ER) | payer MEDICARE, MEDICAID, SELFPAY ==
[2022-05-01] VITALS (61 sets, daily range): BP systolic 63–113; BP diastolic 43–71; PULSE 25–128; RESP 12–18; TEMP 37; O2SAT 95–100; BMI 4100.8
--- NOTE | 2022-05-01 12:20 | ECG_ITS ---
APPROVED REPORT Exam: Resting ECG HR:126 bpm ECG Measurements Heart Rate 126 AXES [place] 220 P 121 QRSd 248 QRS -60 QT 429 T 115 QTc 504 Conclusion ECTOPIC ATRIAL TACHYCARDIA WITH FIRST DEGREE AV BLOCK INTRAVENTRICULAR CONDUCTION DELAY [130+ ms QRS DURATION] LATERAL MYOCARDIAL INFARCTION , PROBABLY RECENT [40+ ms Q WAVE AND/OR ST/T ABNORMALITY IN I/aVL/V5/V6] INFERIOR MYOCARDIAL INFARCTION , POSSIBLY ACUTE [40+ ms Q WAVE AND/OR ST/T ABNORMALITY IN II/aVF] ACUTE MA UNCONFIRMED REPORT Electronically signed by : Brenden Keita MD 05/01/2022 19:45:11
--- NOTE | 2022-05-01 12:22 | XR_ITS ---
FINAL REPORT CLINICAL HISTORY: rob perry COMPARISON: 04/26/2022 FINDINGS: A portable view of the chest was obtained. Comparison is made to a prior exam dated 04/26/2022. No change in a left-sided AICD. Cardiac and mediastinal silhouettes are within normal limits. There are stable mild increased interstitial markings. The lungs are otherwise clear. There is no pleural effusion or pneumothorax. IMPRESSION: Stable mild increase interstitial markings. Lungs otherwise clear. Reviewed, Interpreted and Dictated by Maritza Doss MD Transcribed by Julianne Reyes Authenticated and . [facility]
--- NOTE | 2022-05-01 12:51 | HMH.EDGENADL ---
Discharge Plan Disposition Patient Disposition: Xfer Short-Term Hosp Condition: Good Prescriptions Prescriptions: No Action Entresto 97-103 mg tablet 1 tab PO BID Qty: 60 5RF eplerenone 25 mg tablet 25 mg PO DAILY Qty: 30 5RF atorvastatin 40 mg tablet 40 mg PO HS Qty: 30 5RF Sprycel 100 mg tablet 100 mg PO DAILY furosemide [Lasix] 20 mg tablet 20 mg PO DAILY PRN (Reason: edema) Qty: 30 5RF trazodone 50 MG tablet 50 mg PO HS metoprolol tartrate 100 mg tablet 100 mg PO BID amiodarone 200 mg tablet 200 mg PO BID Brilinta 90 mg tablet 90 mg PO BID ropinirole 1 mg tablet 2 mg PO HS Label Comments: TAKE 2 TABLETS BY MOUTH ONCE DAILY NEEDED FOR RESTLESS LEG SYNDROME pantoprazole 40 mg tablet,delayed release (DR/EC) 40 mg PO DAILY Label Comments: TAKE 1 TABLET BY MOUTH ONCE DAILY FOR 30 DAYS Referrals Follow up/Referrals: Aaron Rodríguez MD [Primary Care Provider] - See instructions Clinical Impressions Clinical Impression: Ventricular tachycardia, AICD discharge Stand Alone Forms Stand Alone Forms: Transfer Record - ED Discharge ED Provider: Yoli Pruitt General Adult HPI General Chief complaint: Arrhythmia/Palpitations Stated complaint: cardiology Time Seen by Provider: 05/01/22 12:20 Mode of Arrival: Ambulatory Source of Information: Patient Limitations: No Limitations Description of Symptoms (Recalled from ER Triage Doc. by RN): PT STATES HE HAS HAD AN ELEVATED HEARTRATE SINCE YESTERDAY MORNING, STATES HE HAS A PACEMAKER AND IT WENT OFF THIS MORNING, REPORTS DIZZINESS AND WEAKNESS History of Present Illness HPI narrative: This patient is a 67-year-old male with a history of CAD, advanced heart failure secondary to ischemic cardiomyopathy with ICD in place, hypertension, and CML presenting to the emergency department for evaluation with concern for ventricular tachycardia noted at outpatient cardiology clinic. Patient called and told Dr. Nuñez that for the last 24 hours, his heart rate has been higher than usual. He has had issues with ventricular tachycardia in the past, and his defibrillator has not gone off, however he does note that it went off this morning. He states that he feels very lightheaded and weak anytime he tries to do anything, but otherwise he is not having any symptoms currently. He denies any recent fevers, chills, chest pain, abdominal pain, nausea, vomiting, changes in bowel movements, or other issues. Dr. Nuñez arrived with the patient and I had an interactive discussion with him, at which point he noted that he plans to admit the patient for further adjustments in his defibrillator and medication management. He plans to cardiovert the patient while here in the emergency department. Related Data Home Medications Medication Instructions Recorded Confirmed trazodone 50 mg tablet 50 mg PO HS Sleep 07/01/21 05/01/22 amiodarone 200 mg tablet 200 mg PO BID Hypertension 04/26/22 05/01/22 dasatinib 100 mg tablet (Sprycel) 100 mg PO DAILY chemotherapy 04/26/22 05/01/22 metoprolol tartrate 100 mg tablet 100 mg PO BID Hypertension 04/26/22 05/01/22 ticagrelor 90 mg tablet (Brilinta) 90 mg PO BID Blood thinner 04/26/22 05/01/22 pantoprazole 40 mg tablet,delayed 40 mg PO DAILY acid reflux 04/27/22 05/01/22 release ropinirole 1 mg tablet 2 mg PO HS restless leg syndrome 04/27/22 05/01/22 Previous Rx's Medication Instructions Recorded atorvastatin 40 mg tablet 40 mg PO HS Cholesterol #30 tabs 03/09/22 eplerenone 25 mg tablet 25 mg PO DAILY Hypertension #30 03/09/22 tabs sacubitril 97 mg-valsartan 103 mg 1 tab PO BID CHF #60 tabs 03/09/22 tablet (Entresto) furosemide 20 mg tablet (Lasix) 20 mg PO DAILY PRN edema #30 tabs 04/28/22 Allergies Allergy/AdvReac Type Severity Reaction Status Date / Time Penicillins [PENICILLINS] Allergy Intermediate I-RASH Verified 05/01/22 11:48 [facility] Disclaim
[2022-05-01 12:52] LABS: Chloride 106 mmol/L (98-107); Potassium 3.7 mmoL/L (3.5-5.1); Sodium 139 mmol/L (136-145)
[2022-05-01 12:55] LABS: Basophils # 0.1 K/mm3 (0-0.2); Basophils % 0.9 % (0.1-2.0); Eosinophils # 0.2 K/mm3 (0.0-0.4); Eosinophils % 1.4 % (0.1-12.0); Lymphocytes # 1.9 K/mm3 (0.7-4.5); Lymphocytes % 11.8 % (10-50); Mean Corpuscular HGB Conc 33.2 g/dL (31.8-35.4); Mean Corpuscular Hemoglobin 30.5 pg (27.0-31.2); Mean Corpuscular Volume 91.8 fl (80-94); Mean Platelet Volume 9.8 fl (7.4-10.4); Monocytes # 0.3 K/mm3 (0.1-1.0); Monocytes % 1.9 % (1.7-9.3); Neutrophils # 13.7 K/mm3 (1.8-7.8); Platelet Count 392 K/mm3 (142-424); Red Cell Distribution Width 16.1 % (11.5-17.5); White Blood Count 16.3 K/mm3 (4.8-10.8)
[2022-05-01 13:01] LABS: Coronavirus 19, PCR Not Detected (NotDetected); Influenza A, PCR Not Detected (NotDetected); Influenza B, PCR Not Detected (NotDetected)
[2022-05-01 13:08] LABS: Troponin I 0.02 ng/ml (0.00-0.034)
--- NOTE | 2022-05-01 13:09 | PC.NURSE ---
JUST SPOKE TO ABOUT DIRECT ADMITTING TO THE GUEST SERVICES MANAGER PER DR MOHR
[2022-05-01 13:13] LABS: Blood Urea Nitrogen 46 mg/dl (9-20); Creatinine Clearance Estimated -35 mL/min (50-200); Estimated Glomerular Filt Rate 32 ml/min (>60); GFR (African American) 38 ML/MIN (>60); MANUAL DIFFERENTIAL MANUAL DIFFERENTIAL (MANUAL DIFF)
[2022-05-01 13:14] LABS: Anion Gap 12.8 mEq/L (5-15); Calcium 8.6 mg/dl (8.4-10.2); Carbon Dioxide 23 mmol/L (22.0-30.0); Glucose 156 mg/dl (74-100)
--- NOTE | 2022-05-01 13:20 | PC.NURSE ---
demetri yates speaking with hospitalist at [facility] at this time
--- NOTE | 2022-05-01 13:21 | CARE MANAGER ---
Attemped post-discharge phone interview, no answer.
--- NOTE | 2022-05-01 13:33 | PC.NURSE ---
13:02: DR MOHR AT BEDSIDE 13:04: 2MG VERSED ADMINISTERED 13:08: 1MG VERSED ADMINISTERED 13:10: 1MG VERSED ADMINISTERED 13:13: SHOCK ADMINSTERED 13:15: PHARMACY NOTIFIED OF AMIO DRIP 13:19: FLUID BOLUS ADMINISTERED VIA PRESSURE BAG DUE TO HYPOTENSION 13:20: PHARMACY CALLED TO CANCEL AMIO DRIP AND DO LIDOCAINE DRIP INSTEAD PER DR MOHR VIA DR MAXWELL 100MG OVER 2 MINUTE BOLUS 13:31 LIDOCAINE BOLUS STARTED DURING CARDIOVERSION, PT WAS ON AUTOMOBILE MECHANIC APPRENTICE, BLOOD PRESSURE CYCLING, PULSE OX ON, AND DEF PADS IN PLACE. GHISLAINE BRIAN AT BEDSIDE WELL. CARDIOVERSION COMPLETED VIA PACEMAKER.
[2022-05-01 13:38] LABS: Magnesium 2.3 mg/dl (1.6-2.3)
--- NOTE | 2022-05-01 13:45 | PC.NURSE ---
LIDOCAINE DRIP STARTED
[2022-05-01 13:50] LABS: Eosinophils % 1 % (0-3); Lymphocytes % 13 % (10-50); Monocytes % 2 % (2-9); Neutrophils % 84 % (42-76); Platelet Estimate Normal; RBC Morphology Normal; Total Cells Counted 100
--- NOTE | 2022-05-01 14:26 | PC.NURSE ---
PAGED DR MOHR REGARDING PT.
--- NOTE | 2022-05-01 14:26 | PC.NURSE ---
DR NELSON AT [facility] ACCEPTS PT.
--- NOTE | 2022-05-01 14:28 | PC.NURSE ---
DR LI SPEAKING TO DR MOHR AT THIS TIME.
--- NOTE | 2022-05-01 14:33 | PC.NURSE ---
ER at discussing POC with pt and
--- NOTE | 2022-05-01 14:44 | PC.NURSE ---
CALLED [facility] TO CHECK ON ICU BED STATUS. TRANSFERRED CALL TO
--- NOTE | 2022-05-01 14:48 | PC.NURSE ---
KAYLYNN CAUSEY speaking with cardiology at [place]
--- NOTE | 2022-05-01 14:54 | PC.NURSE ---
contacted pt logistics back at [facility] spoke with Nabila, notified her that ER spoke with cardiology at [facility] states he is okay to take pt while still in [facility] and that he wasn't aware there weren't any icu bed available.. Notified Nabila that of what cardiology had said states okay we will get him a bed . Asked her if there was a bed available or what she thought an ETA would be so I could update pt/family and ER MD. States they will have to move pts around so it will take some time but they will get a bed available for pt. notified ER
--- NOTE | 2022-05-01 15:00 | PC.NURSE ---
AT BEDSIDE PT AWAKE LYING IN BED
--- NOTE | 2022-05-01 15:10 | PC.NURSE ---
ROUNDED ON PT. AT BEDSIDE. NO QUESTIONS OR CONCERNS VOICED AT THIS TIME. CALL LIGHT WITHIN REACH. BED IN LOWEST POSITION.
--- NOTE | 2022-05-01 15:22 | PC.NURSE ---
RECEIVED CALL FROM [facility] PT WILL BE FLOWN OUT TO C-ICU ROOM [id number]
--- NOTE | 2022-05-01 15:24 | PC.NURSE ---
waiting mitigation supervisor back from [employer] for transport
--- NOTE | 2022-05-01 15:29 | PC.NURSE ---
CALLED REPORT TO DARIN AT [facility].
--- NOTE | 2022-05-01 15:32 | PC.NURSE ---
CHECKED ON PT STATES HE IF OKAY AT THIS TIME, CALL LIGHT AT BEDSIDE
--- NOTE | 2022-05-01 15:38 | PC.NURSE ---
[facility] accepted flight, [facility] 2 has an 8 min ETA
--- NOTE | 2022-05-01 15:55 | PC.NURSE ---
[facility] HERE.
--- NOTE | 2022-05-01 15:59 | PC.NURSE ---
NOTIFIED [facility] WILL BE HEADED THAT WAY SHORTLY.
[2022-05-01 16:35] LABS: Troponin I 0.02 ng/ml (0.00-0.034)
--- NOTE | 2022-05-02 12:51 | CARE MANAGER ---
Attempted patient x2. Left VM. Patient went from [facility] ER to higher level of care yesterday. ROSA MARIA Ken
== END 2022-05-01 16:15 | disposition short-term general hospital (02) ==
PROVIDERS: Emergency Provider Emergency Medicine; PCP Family Medicine
DX: I47.20 Ventricular tachycardia, unspecified (principal); Z95.810 Presence of automatic (implantable) cardiac defibrillator; I25.10 Atherosclerotic heart disease of native coronary artery without angina pectoris; I50.9 Heart failure, unspecified; I25.5 Ischemic cardiomyopathy; I11.0 Hypertensive heart disease with heart failure; I48.91 Unspecified atrial fibrillation; I25.2 Old myocardial infarction; Z80.9 Family history of malignant neoplasm, unspecified; Z82.49 Family history of ischemic heart disease and other diseases of the circulatory system; Z83.42 Family history of familial hypercholesterolemia; Z20.822 Contact with and (suspected) exposure to COVID-19
CPT/HCPCS: 71045; 80048; 83735; 84484; 85007; 85025; 93005; 96361; 96374; 96375; 96376; 99291; C9803; G0390; J2001; U0003; U0005

== ENCOUNTER → 2022-05-15 14:15 | Outpatient (CLI) | payer MEDICARE, MEDICAID, SELFPAY ==
--- NOTE | 2022-05-15 14:16 | CA_ITS ---
FINAL REPORT CLINICAL HISTORY: right groin/knot/pain s/p rt groin catheterization 10 days ago. COMPARISON: Limited sonographic imaging of the right groin was obtained. FINDINGS: There is no evidence of pseudoaneurysm or fistula. IMPRESSION: No evidence of pseudoaneurysm or fistula in the right groin. Reviewed, Interpreted and Dictated by Maritza Doss MD Transcribed by Renea Glynn Authenticated and [facility]
== END ==
LOC: RT 14:16
PROVIDERS: PCP Family Medicine; Visit Provider Internal Medicine
DX: S30.1XXA Contusion of abdominal wall, initial encounter (principal); R10.30 Lower abdominal pain, unspecified; R09.89 Other specified symptoms and signs involving the circulatory and respiratory systems
CPT/HCPCS: 93926

== ENCOUNTER 2022-07-30 09:07 | Inpatient (IN) | payer MEDICARE, MEDICAID, SELFPAY ==
[2022-07-30] VITALS (22 sets, daily range): BP systolic 97–159; BP diastolic 73–121; PULSE 55–121; RESP 16–20; TEMP 36.8–37.1; O2SAT 95–100; BMI 23.7; BMI 25.2
--- NOTE | 2022-07-30 09:14 | ECG_ITS ---
APPROVED REPORT Exam: Resting ECG HR:121 bpm ECG Measurements Heart Rate 121 AXES QRSd 233 QRS -56 QT 427 T 112 QTc 499 Conclusion ATRIAL FLUTTER/TACHYCARDIA WITH RAPID VENTRICULAR RESPONSE INTRAVENTRICULAR CONDUCTION DELAY [130+ ms QRS DURATION] LATERAL MYOCARDIAL INFARCTION , PROBABLY RECENT [40+ ms Q WAVE AND/OR ST/T ABNORMALITY IN I/aVL/V5/V6] INFERIOR MYOCARDIAL INFARCTION , POSSIBLY ACUTE [40+ ms Q WAVE AND/OR ST/T ABNORMALITY IN II/aVF] ACUTE [place] UNCONFIRMED REPORT Electronically signed by : Brenden Keita MD 07/31/2022 21:16:48
--- NOTE | 2022-07-30 09:37 | XR_ITS ---
PROCEDURE INFORMATION: Exam: XR Chest Exam date and time: 07/30/2022 9:54 AM Age: 67 years old Clinical indication: Other: Aicd firing; Prior surgery; Surgery date: 6+ months; Surgery type: Pacemaker and defib TECHNIQUE: Imaging protocol: Radiologic exam of the chest. Views: 2 views. COMPARISON: CR XR CHEST PORTABLE 05/01/2022 12:53 PM FINDINGS: Tubes, catheters and devices: Stable [address]. Lungs: Unremarkable. No consolidation. Pleural spaces: Unremarkable. No pleural effusion. No pneumothorax. Heart/Mediastinum: Unremarkable. No cardiomegaly. Bones/joints: Unremarkable. IMPRESSION: No acute radiographic findings identified.
--- NOTE | 2022-07-30 09:50 | PC.NURSE ---
rounded on pt no complaints at this time, tap gill at bs
[2022-07-30 09:58] LABS: INR 1.16 (0.9-1.1); Prothrombin Time 12.4 seconds (10.1-12.5)
[2022-07-30 09:59] LABS: Alanine Aminotransferase 49 U/L (12-78); Albumin Level 3.8 g/dl (3.5-5.0); Albumin/Globulin Ratio 1.4 (1.1-1.8); Alkaline Phosphatase 69 U/L (38-126); Anion Gap 15.2 mEq/L (5-15); Aspartate Amino Transferase 50 U/L (17-59); Basophils % 0.5 % (0.1-2.0); Bilirubin,Total 0.6 mg/dl (0.2-1.3); Blood Urea Nitrogen 14 mg/dl (9-20); Calcium 8.3 mg/dl (8.4-10.2); Carbon Dioxide 26 mmol/L (22.0-30.0); Chloride 98 mmol/L (98-107); Creatinine Clearance Estimated 79 mL/min (50-200); Eosinophils % 1.5 % (0.1-12.0); Estimated Glomerular Filt Rate 96 ml/min (>60); GFR (African American) 116 ML/MIN (>60); Globulin 2.8 g/dL (1.3-3.2); Glucose 128 mg/dl (74-100); Lymphocytes # 0.6 K/mm3 (0.7-4.5); Lymphocytes % 27.5 % (10-50); Magnesium 1.9 mg/dl (1.6-2.3); Mean Corpuscular HGB Conc 32.5 g/dL (31.8-35.4); Mean Corpuscular Hemoglobin 29.5 pg (27.0-31.2); Mean Corpuscular Volume 90.6 fl (80-94); Mean Platelet Volume 8.5 fl (7.4-10.4); Monocytes # 0.4 K/mm3 (0.1-1.0); Monocytes % 17.5 % (1.7-9.3); Neutrophils # 1.1 K/mm3 (1.8-7.8); Neutrophils % 53.1 % (37.0-80.0); Platelet Count 96 K/mm3 (142-424); Potassium 3.2 mmoL/L (3.5-5.1); Red Blood Count 4.08 M/mm3 (4.60-6.20); Red Cell Distribution Width 23.9 % (11.5-17.5); Sodium 136 mmol/L (136-145); Total Protein,Serum 6.6 g/dl (6.3-8.2)
--- NOTE | 2022-07-30 10:05 | HMH.EDGENADL ---
Discharge Plan Disposition Patient Disposition: Admitted As Inpatient Clinical Impressions Clinical Impression: V-tach Discharge ED Provider: Luisito Neumann General Adult HPI General Chief complaint: Arrhythmia/Palpitations Stated complaint: Defibrillator went off, no CP no discomfort Time Seen by Provider: 07/30/22 09:08 Mode of Arrival: Ambulatory Source of Information: Patient Limitations: No Limitations Description of Symptoms (Recalled from ER Triage Doc. by RN): pt to ed c/o thump to the chest. pt states he was sitting on the sofa at rest and his pacemaker fired. pt denies pain or any symptoms on arrival to ed. History of Present Illness HPI narrative: Patient is a 67-year-old male with past medical history of CAD, hypertension, CHF, ventricular tachycardia status post AICD placement who presents with concern for defibrillator discharge. He reports that in April he was diagnosed with esophageal cancer but also had an ablation due to recurrent episodes of arrhythmia. He says that he had been stable and not having many episodes since that his defibrillator has fired since then. He says that he was diagnosed with esophageal cancer during that time and has been doing radiation and chemotherapy. He says that he has 1 more treatment. He says he has not been eating and drinking very well due to fatigue and states that much of his food now has a foul taste. He said that he had a little bit of chest discomfort after the AICD fired. Denies any numbness or tingling. Denies any nausea or diaphoresis. Related Data Home Medications Medication Instructions Recorded Confirmed trazodone 50 mg tablet 50 mg PO HS Sleep 07/01/21 07/30/22 amiodarone 200 mg tablet 200 mg PO BID Hypertension 04/26/22 07/30/22 dasatinib 100 mg tablet (Sprycel) 100 mg PO DAILY chemotherapy 04/26/22 07/30/22 ropinirole 1 mg tablet 2 mg PO HS restless leg syndrome 04/27/22 07/30/22 aspirin 81 mg tablet 81 mg PO DAILY Blood thinner 05/15/22 07/30/22 dapagliflozin 10 mg tablet 10 mg PO DAILY Kidney failure 05/15/22 07/30/22 (Farxiga) enoxaparin 100 mg/mL subcutaneous 100 mg SQ BID Blood thinner 05/15/22 07/30/22 syringe metoprolol succinate 100 mg 100 mg PO BID Heart disease 05/15/22 07/30/22 tablet,extended release 24 hr rivaroxaban 15 mg tablet (Xarelto) 15 mg PO DAILY Blood thinner 07/30/22 07/30/22 Previous Rx's Medication Instructions Recorded atorvastatin 40 mg tablet 40 mg PO HS Cholesterol #30 tabs 03/09/22 eplerenone 25 mg tablet 25 mg PO DAILY Hypertension #30 03/09/22 tabs sacubitril 97 mg-valsartan 103 mg 1 tab PO BID CHF #60 tabs 03/09/22 tablet (Entresto) furosemide 20 mg tablet (Lasix) 20 mg PO DAILY PRN edema #30 tabs 04/28/22 Allergies Allergy/AdvReac Type Severity Reaction Status Date / Time Penicillins [PENICILLINS] Allergy Intermediate I-RASH Verified 05/15/22 12:12 [facility] Disclaimer: The information contained in this section may have been updated after the patient was seen, as this information can be updated by other users. Medical History (Updated 07/30/22 @ 13:48 by Aubrey Hager MD) Atrial fibrillation Chemotherapy induced nausea and vomiting CML (chronic myelocytic leukemia) Coronary artery disease DVT (deep venous thrombosis) Esophageal cancer GERD (gastroesophageal reflux disease) Groin hematoma History of GI bleed Hyperlipidemia Hypertension Ischemic cardiomyopathy with implantable cardioverter-defibrillator (ICD) Leukemia Myocardial infarction Pacemaker PNA (pneumonia) Pulmonary edema Ventricular tachycardia Surgical History AICD (automatic cardioverter/defibrillator) present History of cardiac radiofrequency ablation (RFA) History of percutaneous coronary intervention Family History Other Cancer Family history of hyperlipidemia Family history of hypertension Family hist
--- NOTE | 2022-07-30 10:08 | PC.NURSE ---
pt given warm blanket
[2022-07-30 10:21] LABS: Troponin I < 0.01 ng/ml (0.00-0.034)
--- NOTE | 2022-07-30 10:36 | PC.NURSE ---
Dr Neumann speaking with Dr Nuñez
--- NOTE | 2022-07-30 10:40 | ECG_ITS ---
APPROVED REPORT Exam: Resting ECG HR:64 bpm ECG Measurements Heart Rate 64 AXES NJ 197 P 1 QRSd 108 QRS -14 QT 330 T 103 QTc 339 Conclusion ELECTRONIC ATRIAL PACEMAKER INFERIOR MYOCARDIAL INFARCTION , PROBABLY OLD [40+ ms Q WAVE AND/OR ST/T ABNORMALITY IN II/aVF] ANTEROLATERAL MYOCARDIAL INFARCTION , PROBABLY RECENT [40+ ms Q WAVE IN I/aVL/V3-V6] ACUTE [place] UNCONFIRMED REPORT Electronically signed by : Brenden Keita MD 07/31/2022 21:18:15
--- NOTE | 2022-07-30 10:58 | PC.NURSE ---
we moved pt to bay 2 from 7 to keep a closer watch. no complaints at this time, at bs
[2022-07-30 11:26] LABS: Coronavirus 19, PCR Not Detected (NotDetected); Influenza A, PCR Not Detected (NotDetected); Influenza B, PCR Not Detected (NotDetected)
--- NOTE | 2022-07-30 11:43 | PC.NURSE ---
checked on pt need nothing at this time, at bedside
--- NOTE | 2022-07-30 12:02 | PC.NURSE ---
report called to stevenson amezquita
--- NOTE | 2022-07-30 12:58 | PC.NURSE ---
pt arrived to the floor by bed.
--- NOTE | 2022-07-30 13:42 | EXP.HP ---
History of Present Illness *Admission Date: 07/30/22 *Reason for visit:: Rapid heart rate *History of present illness: This is a 67-year-old male who presents to [facility] emergency department with concerns of palpitations and his AICD firing. His past medical history is significant for cardiomyopathy with AICD placement, coronary artery disease, atrial fibrillation on chronic anticoagulation, CML, esophageal cancer currently finishing his radiation and chemotherapy, recently diagnosed DVT and pulmonary embolus. He describes a decline in his nutritional status with his ongoing esophageal cancer therapy. He reports difficulty with his medications. He describes tachypalpitations with no associated retrosternal chest pain, acute dyspnea or confusion. He has not identified any acute neurological changes, unusual headaches or loss of motor or sensory function. In the ED his tacky arrhythmia is identified and cardiology is consulted out of the ED. He is placed on an esmolol drip and the patient identifies improvement. His chest x-ray identifies no acute disease his LFTs are normal and his electrolytes are normal with the exception of his potassium which is being replaced. [facility] Medical History (Updated 07/30/22 @ 13:48 by Aubrey Hager MD) Atrial fibrillation Chemotherapy induced nausea and vomiting CML (chronic myelocytic leukemia) Coronary artery disease DVT (deep venous thrombosis) Esophageal cancer GERD (gastroesophageal reflux disease) Groin hematoma History of GI bleed Hyperlipidemia Hypertension Ischemic cardiomyopathy with implantable cardioverter-defibrillator (ICD) Leukemia Myocardial infarction Pacemaker PNA (pneumonia) Pulmonary edema Ventricular tachycardia Surgical History AICD (automatic cardioverter/defibrillator) present History of cardiac radiofrequency ablation (RFA) History of percutaneous coronary intervention Family History Other Cancer Family history of hyperlipidemia Family history of hypertension Family history of myocardial infarction Social History Smoking Status: Never smoker alcohol intake: never substance use type: other current occupational status: retired Travel in the last 8 weeks: Inside the [place] household members: spouse housing: house caffeine: Yes Review of Systems Review of Systems Review of systems:: pertinent systems reviewed and negative unless documented below Constitutional Constitutional: Denies headache(s) Eyes Eyes: Denies loss of vision ENT Ears, Nose, Mouth, and Throat: Denies headache(s) *Cardiovascular Cardiovascular: Denies chest pain, Denies chest pain at rest, Reports dyspnea, Reports dyspnea on exertion and Reports palpitations *Respiratory Respiratory: Reports dyspnea and Reports dyspnea on exertion *Gastrointestinal Gastrointestinal: Denies abdominal pain, Denies hematemesis, Denies loose stools, Reports nausea and Denies vomiting *Neurologic Neurologic: Denies abnormal speech, Denies localized weakness, Denies headache(s), Denies loss of vision and Denies memory loss Psychiatric Psychiatric: Denies memory loss Endocrine Endocrine: Reports palpitations Hematologic/Lymphatic Hematologic/Lymphatic: Denies easy bleeding and Denies easy bruising Meds Home Medications and Allergies Home Medications Medication Instructions Recorded Confirmed Type trazodone 50 mg tablet 50 mg PO HS Sleep 07/01/21 07/30/22 History atorvastatin 40 mg tablet 40 mg PO HS Cholesterol #30 tabs 03/09/22 07/30/22 Rx eplerenone 25 mg tablet 25 mg PO DAILY Hypertension #30 03/09/22 07/30/22 Rx tabs sacubitril 97 mg-valsartan 103 mg 1 tab PO BID CHF #60 tabs 03/09/22 07/30/22 Rx tablet (Entresto) amiodarone 200 mg tablet 200 mg PO BID Hypertension 04/26/22 07/30/22 History dasatinib 100
[2022-07-30 14:54] LABS: Troponin I < 0.01 ng/ml (0.00-0.034)
--- NOTE | 2022-07-30 15:06 | ECG_ITS ---
APPROVED REPORT Exam: Resting ECG HR:64 bpm ECG Measurements Heart Rate 64 AXES MO 206 P 41 QRSd 105 QRS -9 QT 423 T 0 QTc 433 Conclusion ELECTRONIC ATRIAL PACEMAKER INFERIOR MYOCARDIAL INFARCTION , PROBABLY OLD [40+ ms Q WAVE AND/OR ST/T ABNORMALITY IN II/aVF] ANTEROLATERAL MYOCARDIAL INFARCTION , OF INDETERMINATE AGE [40+ ms Q WAVE IN I/aVL/V3-V6] ABNORMAL ECG UNCONFIRMED REPORT Electronically signed by : Brenden Keita MD 08/01/2022 20:11:08
[2022-07-30 16:31] LABS: Troponin I < 0.01 ng/ml (0.00-0.034)
--- NOTE | 2022-07-30 17:01 | ECG_ITS ---
APPROVED REPORT Exam: Resting ECG HR:126 bpm ECG Measurements Heart Rate 126 AXES QRSd 160 QRS 109 QT 133 T 0 QTc 207 Conclusion ELECTRONIC VENTRICULAR PACEMAKER ABNORMAL RHYTHM ECG UNCONFIRMED REPORT Electronically signed by : Brenden Keita MD 07/31/2022 21:18:06
--- NOTE | 2022-07-30 17:08 | PC.NURSE ---
164-DR DUMONT MADE AWARE OF CHANGES NOTED ON TELEMETRY. EKG OBTAINED. DR DUMONT STATED HE WOULD CONTACT DR MOHR. 170-DR DUMONT CALLED BACK AND GAVE FOLLOWING ORDERS: START AMIODARONE GTT, BOLUS ESMOLOL GTT AND INCREASE INFUSION RATE OF ESMOLOL GTT.
--- NOTE | 2022-07-30 18:04 | PC.NURSE ---
1713 Spoke with Trip in pharmacy, clarified directions for bolus to increase esmolol drip. Per Trip pt needs a 40mg bolus which is 4ml over 1 min. Primary RN Paxton given directions as per pharmacy.
--- NOTE | 2022-07-30 18:07 | PC.NURSE ---
Stat EKG obtained at 170. EKG taken to ER and read by Dr Neumann at 1706. no new orders from ER .
--- NOTE | 2022-07-30 20:06 | PC.NURSE ---
Esmolol titrated up to 100mcg/kg/min at this time.
[2022-07-31] VITALS (13 sets, daily range): BP systolic 110–139; BP diastolic 73–104; PULSE 60–121; RESP 14–22; TEMP 36.4–37; O2SAT 95–97; BMI 25.2
--- NOTE | 2022-07-31 00:39 | PC.NURSE ---
Turned Amiodarone gtt down to 16.7ml/hr @ 0039
--- NOTE | 2022-07-31 03:07 | PC.NURSE ---
At 0143, this RN entered room and realized Amiodarone drip was almost empty and the 900mg Amiodarone had been put into a 250ml bag of D5 instead of a 500ml bag. Notified slot shift supervisor, Lynn Anderson @ 0143 Notified Alley CAUSEY @ 0148, he stated to stop the drip at this time and to not hang another bag. No other orders at this time. Entered room and stopped drip @ 0150 Notified [facility] @ 0200, spoke with Daisy. She stated there was not anything I needed to do and to follow MDs orders. Incident report filed @ 1526
--- NOTE | 2022-07-31 06:20 | PC.NURSE ---
Adrian Valenzuela calls for update on pt, states to give 40mEq potassium chloride PO now and give again at 1200 today, start Amiodarone 400mg PO BID - 1st dose now, and order a complete echo this am. Orders read back, verified, Medication orders sent to pharmacy.
[2022-07-31 06:36] LABS: Basophils % 0.1 % (0.1-2.0); Eosinophils % 0.6 % (0.1-12.0); Hematocrit 31.5 % (42.0-52.0); Lymphocytes # 0.5 K/mm3 (0.7-4.5); Lymphocytes % 18.6 % (10-50); Mean Corpuscular HGB Conc 33.5 g/dL (31.8-35.4); Mean Corpuscular Hemoglobin 30.8 pg (27.0-31.2); Mean Corpuscular Volume 91.9 fl (80-94); Mean Platelet Volume 8.5 fl (7.4-10.4); Monocytes # 0.4 K/mm3 (0.1-1.0); Neutrophils # 1.6 K/mm3 (1.8-7.8); Neutrophils % 63.6 % (37.0-80.0); Platelet Count 90 K/mm3 (142-424); Red Blood Count 3.43 M/mm3 (4.60-6.20); Red Cell Distribution Width 24.5 % (11.5-17.5); White Blood Count 2.5 K/mm3 (4.8-10.8)
[2022-07-31 06:45] LABS: Blood Urea Nitrogen 10 mg/dl (9-20); Calcium 7.5 mg/dl (8.4-10.2); Carbon Dioxide 25 mmol/L (22.0-30.0); Chloride 102 mmol/L (98-107); Creatinine Clearance Estimated 85 mL/min (50-200); Estimated Glomerular Filt Rate 112 ml/min (>60); GFR (African American) 136 ML/MIN (>60); Glucose 99 mg/dl (74-100); Sodium 135 mmol/L (136-145)
[2022-07-31 06:46] LABS: Hemoglobin 10.5 g/dL (14.1-18.0)
--- NOTE | 2022-07-31 07:04 | PC.NURSE ---
Esmolol gtt continues at 100mcg/kg/min. Pt woke up this AM with nausea and required PRN Zofran. No other c/o voiced to staff. Call light within reach.
--- NOTE | 2022-07-31 07:21 | PC.NURSE ---
Esmolol infusing at 47.6 ml/hr at handoff. Patient sitting up in bed, denies any needs at this time. Denies N/V. Rates pain a 0/10.
[2022-07-31 07:43] LABS: NT Pro Brain Natriuretic Pep. 1390 pg/mL (0-125)
--- NOTE | 2022-07-31 08:04 | PC.NURSE ---
Cards, Basilio at bedside.
--- NOTE | 2022-07-31 08:13 | HMH.PHAINT1 ---
Pharmacy Intervention Comments: home medication list verified using list from outpatient pharmacy and pt interview
--- NOTE | 2022-07-31 09:28 | EXP.CARD.CON ---
History of Present Illness History of Present Illness Consult date: 07/31/22 Requesting physician: Aubrey Hager Chief complaint: Arrhythmia, AICD discharge Additional Medical History:: 1.? Ischemic cardiomyopathy with ejection fraction approximately 20-30%, previously followed with Dr. Hairston A.? Initial SD 2000 with subsequent stenting B.? Coronary stenting in 2001 possible SD at that time C.? 2012 coronary stenting x2 per patient D.? [employer] AICD implanted 2013 due to ischemic cardiomyopathy E.? Recurrent atrial fibrillation for which patient underwent ablation, Dr. Dowd, approximately 2019 F. C, 03/02/2022, 2 CUCO to mid LAD. Mild to moderate disease of large first diagonal, mild disease of circumflex which is dominant and normal nondominant RCA. G. Echo, 02/2022, LAE at 4.75 cm, dilated LV with EF 20% with segmental wall motion abnormalities (marked hypokinesis involving mid to distal septum, anterior, anteroapical and apical wall). Grade 2 diastolic dysfunction, mild RV enlargement with normal contractility. Mild MR/TR. RVSP 30 mmHg. H. Refractory V. Tach, 04/2022, s/p ablation at [facility], Dr. Shana Ortiz Limited echo, 04/28/2022, EF 25%. 2.? Hypertension 3.? Hyperlipidemia 4.? Arthritis 5.? Atrial fibrillation, anticoagulated with Pradaxa A.? History of ablation therapy, 2019, [place], [place], Dr. Dowd 6. CLL diagnosed approximately 02/2022 A. On Dasatnib 7. Nonsustained ventricular tachycardia A. Re-occurrences appear to be related to medication noncompliance due to nausea/difficulty swallowing pills since radiation therapy for GE cancer. B. Seemingly controlled on combination of high-dose metoprolol and amiodarone therapy. 8. Gastroesophageal cancer A. status post radiation (finished early July 2022) and chemotherapy History of present illness: This is a 67-year-old male who presents to [facility] emergency department with concerns of palpitations and his AICD firing.? His past medical history is significant for cardiomyopathy with AICD placement, coronary artery disease, atrial fibrillation on chronic anticoagulation, CML, esophageal cancer currently finishing his radiation and chemotherapy, recently diagnosed DVT and pulmonary embolus.? He describes a decline in his nutritional status with his ongoing esophageal cancer therapy.? He reports difficulty with his medications.? He describes tachypalpitations with no associated retrosternal chest pain, acute dyspnea or confusion.? He has not identified any acute neurological changes, unusual headaches or loss of motor or sensory function.? In the ED his tacky arrhythmia is identified and cardiology is consulted out of the ED.? He is placed on an esmolol drip and the patient identifies improvement.? His chest x-ray identifies no acute disease his LFTs are normal and his electrolytes are normal with the exception of his potassium which is being replaced. The above per Dr. Hager. Events above confirmed with the patient. Patient does admit to poor medication adherence due to nausea and difficulty swallowing related to esophageal cancer with recent radiation therapy. Radiation therapy ended approximately 10 to 14 days ago with improvement in his nausea. He has lost about 35 pounds since earlier this year. Telemetry today shows sinus rhythm. Preliminary echocardiogram today confirms severely reduced EF 25% which is chronic. He does have a [employer] ICD in place which will be interrogated today. [facility] Disclaimer: The information contained in this section may have been updated after the patient was seen, as this information can be updated by other users. Medical History (Updated 07/30/22 @ 13:48 by Aubrey Hager MD) Atrial fibrillation Chemotherapy induced nausea and vomiting CML (chronic myelocytic leukemia) Coronary artery disease DVT (deep venous thrombosis) Esophageal cancer GERD (gastroesophageal reflux disease) Groin hematoma Hist
--- NOTE | 2022-07-31 11:05 | PC.NURSE ---
Esmolol stopped per communication with Basilio Valenzuela/kristin.
--- NOTE | 2022-07-31 11:53 | DIET.NUTRFU ---
RD saw patient today and reviewed multiple high calorie handouts and smoothie receipts. Patient completed his last radiation/chemo tx 2 weeks ago and feels his appetite is improving. He was receiving tx for esophageal cancer, he denies any chewing or swallowing issues. He does trigger for PCM with change in appetite and significant wt loss of 35#. His intake last night for dinner was fair at 35%. He is NPO/just liquids this AM for cardio consult, was drinking a boost clear that had been watered down. patient complains that the supplements are just too sweet. Was drinking boost during radiation tx but now just cannot tolerate them. May switch him to homemade shake, vanilla instead of the commercial supplements. He typically does not add salt and eats non greasy/fried foods. May benefit liberalizing to regular diet to allow extra calories.
--- NOTE | 2022-07-31 16:17 | EXP.ACUTE.PN ---
Subjective *Date: 07/31/22 *Time: 19:16 Interval history: Patient denies any headache or chest pain. Complaining of nausea that is persistent. Tolerating p.o. intake. Afebrile overnight. Remains on esmolol drip this morning. Stable on room air Medical Exam Vital signs and Labs for Last 24 Hours: Vital Signs Temp Pulse Pulse Resp BP Pulse Ox FiO2 07/31/22 16:00 97.6 F 07/31/22 08:00 70 07/31/22 12:00 120 H 07/31/22 12:00 98.3 F 07/31/22 08:00 117 H 97 07/31/22 07:52 97.8 F 07/31/22 06:00 60 14 135/84 95 07/31/22 04:00 70 07/31/22 04:00 69 18 139/86 97 97.8 07/31/22 00:00 95 07/31/22 02:00 60 18 133/76 95 07/31/22 00:00 70 07/31/22 00:00 98.6 F 60 15 110/73 96 07/30/22 22:00 60 16 118/73 97 07/30/22 20:00 60 07/30/22 20:00 99 07/30/22 20:00 98.8 F 69 16 125/84 99 07/30/22 18:00 60 18 97/78 L 100 Intake and Output 07/31/22 07/31/22 07/31/22 07:59 15:59 23:59 Intake Total 2638.371 / 2860.504 222.133 / 2860.504 Output Total 1570 / 1790 220 / 1790 Balance 1068.371 / 1070.504 2.133 / 1070.504 Intake: Intake, Total IV Amount 2638.371 / 2860.504 222.133 / 2860.504 0.9 % Sodium Chloride 1000ML 1, 1314 / 1314 000 ml @ 75 mls/hr IV .[id number] [facility] Rx#:[id number] Amiodarone HCl 150 mg In 100 / 100 Dextrose 5 % in Water 100 ml @ 618 mls/hr IV ONCE ONE Rx#: [id number] Amiodarone HCl 900 mg In 232 / 232 Dextrose 5 % in Water 500 ml @ 33.3 mls/hr IV .[id number] [facility] Rx# :[id number] Esmolol HCl in Sterile Water 2, 738 / 738 500 mg In 250 ml @ 100 MCG/KG/ MIN 47.627 mls/hr IV .[id number] [facility] Rx#:[id number] Output: Output, Urine Amount 1570 / 1790 220 / 1790 Other: Weight 84.538 kg Patient Weight 07/31/22 23:59 Weight 84.538 kg Laboratory Results - last 24 hr 07/30/22 15:45: Troponin I < 0.01 07/31/22 05:23: WBC 2.5 L, RBC 3.43 L, Hgb 10.5 L D, Hct 31.5 L, MCV 91.9, MCH 30.8, MCHC 33.5, RDW 24.5 H, Plt Count 90 L, MPV 8.5, Neut % (Auto) 63.6, Lymph % (Auto) 18.6, Saline % (Auto) 17.0 H, Eos % (Auto) 0.6, Baso % (Auto) 0.1, Neut # (Auto) 1.6 L, Lymph # (Auto) 0.5 L, [place] # (Auto) 0.4, Eos # (Auto) 0.0, Baso # (Auto) 0.0 07/31/22 05:23: Sodium 135 L, Potassium 4.0 D, Chloride 102, Carbon Dioxide 25, Anion Gap 12.0, BUN 10 D, Creatinine 0.70, Estimated Creat Clear 85, Estimated GFR 112, Est GFR ( Amer) 136, Glucose 99 D, Calcium 7.5 L, Magnesium 2.0 07/31/22 05:23: NT-Pro-B Natriuret Pep 1390 H I & O for Labs for Last 24 Hours: Intake & Output 07/28/22 07/29/22 07/30/22 07/31/22 23:59 23:59 23:59 23:59 Intake Total 349.37 / 349.37 2860.504 / 2860.504 Output Total 400 / 400 1790 / 1790 Balance -50.63 / -50.63 1070.504 / 1070.504 Weight 84.538 kg 84.538 kg Constitutional: Present no acute distress Head: Present atraumatic and normocephalic ENT: Present normal exam Neck: Present normal inspection Respiratory: Present normal respiratory effort; Absent accessory muscle use, rhonchi, wheezes or crackles Cardiac: Present Tachycardia GI: Present soft, tenderness (Epigastric) and normal bowel sounds; Absent distention Extremities: Present normal inspection and full ROM Skin: Present intact; Absent erythema Neuro: Present Cranial Nerve 2-12 Intact, Grossly Intact, alert, awake, oriented x 3 and moves all extremities Assessment and Plan *Assessment and plan (1) Ventricular tachycardia: Status: Acute Category: Medical Code(s): I47.20 - Ventricular tachycardia, unspecified (2) AICD discharge: Status: Acute Category: Medical Code(s): Z45.02 - Encounter for adjustment and management of automatic implantable cardiac defibrillator (3) Coronary artery disease: Status: Acute Qualifiers: Coronary Disease-Associa
--- NOTE | 2022-07-31 19:29 | PC.NURSE ---
report taken from ROSA MARIA Chen; both RN's rounded on pt together and pt on esmolol at 50mcg/kg/min, HR 60-80's but occasionally increases into one teens but then comes back down without intervention; pacer spikes noted intermittently; bp 119/80 (93), pt watching tv, pt using urinal, no needs at this time, call light within reach
[2022-08-01] VITALS (24 sets, daily range): BP systolic 104–150; BP diastolic 60–98; PULSE 60–122; RESP 14–20; TEMP 36.4–36.9; O2SAT 92–98; BMI 26.5
[2022-08-01 05:59] LABS: Basophils % 0.2 % (0.1-2.0); Eosinophils % 0.7 % (0.1-12.0); Hematocrit 33.9 % (42.0-52.0); Hemoglobin 11.3 g/dL (14.1-18.0); Lymphocytes # 0.6 K/mm3 (0.7-4.5); Lymphocytes % 16.1 % (10-50); Mean Corpuscular HGB Conc 33.4 g/dL (31.8-35.4); Mean Corpuscular Volume 92.8 fl (80-94); Mean Platelet Volume 9.3 fl (7.4-10.4); Monocytes # 0.5 K/mm3 (0.1-1.0); Monocytes % 14.1 % (1.7-9.3); Neutrophils # 2.5 K/mm3 (1.8-7.8); Neutrophils % 68.8 % (37.0-80.0); Platelet Count 105 K/mm3 (142-424); Red Blood Count 3.66 M/mm3 (4.60-6.20); Red Cell Distribution Width 24.5 % (11.5-17.5); White Blood Count 3.6 K/mm3 (4.8-10.8)
[2022-08-01 06:09] LABS: Alanine Aminotransferase 36 U/L (12-78); Albumin Level 3.2 g/dl (3.5-5.0); Albumin/Globulin Ratio 1.3 (1.1-1.8); Alkaline Phosphatase 62 U/L (38-126); Anion Gap 12.3 mEq/L (5-15); Aspartate Amino Transferase 38 U/L (17-59); Bilirubin,Total 0.8 mg/dl (0.2-1.3); Blood Urea Nitrogen 12 mg/dl (9-20); Calcium 7.9 mg/dl (8.4-10.2); Carbon Dioxide 24 mmol/L (22.0-30.0); Chloride 103 mmol/L (98-107); Creatinine Clearance Estimated 89 mL/min (50-200); Estimated Glomerular Filt Rate 96 ml/min (>60); GFR (African American) 116 ML/MIN (>60); Globulin 2.4 g/dL (1.3-3.2); Glucose 117 mg/dl (74-100); Magnesium 1.8 mg/dl (1.6-2.3); Potassium 4.3 mmoL/L (3.5-5.1); Sodium 135 mmol/L (136-145); Total Protein,Serum 5.6 g/dl (6.3-8.2)
--- NOTE | 2022-08-01 07:34 | EXP.CARD.PN ---
Subjective Subjective Date: 08/01/22 Time: 07:34 Principal diagnosis: V. tach with AICD firing Interval history: 67-year-old white male in bed in no acute distress. Telemetry currently shows atrial pacing at a rate of 60 bpm. Review of strips shows intermittent runs of slow V. tach at the 120 bpm range. Patient continues on esmolol IV in addition to oral nadolol which we will increase today. Blood pressure remains controlled. Plans are to replace defibrillator generator today due to end-of-life indications. Exam Data for Last 24 hours Vital signs and Labs for Last 24 Hours: Temp Pulse Resp BP Pulse Ox FiO2 97.7 F 70 20 111/72 92 L 97.8 08/01/22 04:00 08/01/22 06:00 08/01/22 06:00 08/01/22 06:00 08/01/22 06:00 07/31/22 04:00 Laboratory Results - last 24 hr 07/31/22 05:23: NT-Pro-B Natriuret Pep 1390 H 08/01/22 05:50: WBC 3.6 L D, RBC 3.66 L, Hgb 11.3 L, Hct 33.9 L, MCV 92.8, MCH 31.0, MCHC 33.4, RDW 24.5 H, Plt Count 105 L, MPV 9.3, Neut % (Auto) 68.8, Lymph % (Auto) 16.1, [place] % (Auto) 14.1 H, Eos % (Auto) 0.7, Baso % (Auto) 0.2, Neut # (Auto) 2.5, Lymph # (Auto) 0.6 L, [place] # (Auto) 0.5, Eos # (Auto) 0.0, Baso # (Auto) 0.0 08/01/22 05:50: Sodium 135 L, Potassium 4.3, Chloride 103, Carbon Dioxide 24, Anion Gap 12.3, BUN 12, Creatinine 0.80, Estimated Creat Clear 89, Estimated GFR 96, Est GFR ( Amer) 116, Glucose 117 H, Calcium 7.9 L, Magnesium 1.8, Total Bilirubin 0.8, AST 38, ALT 36 D, Alkaline Phosphatase 62, Total Protein 5.6 L, Albumin 3.2 L, Globulin 2.4, Albumin/Globulin Ratio 1.3 I & O for Last 24 hours: Intake & Output 07/29/22 07/30/22 07/31/22 08/01/22 11:59 11:59 11:59 11:59 Intake Total 2987.741 / 3209.874 926.146 / 926.146 Output Total 2190 / 2190 900 / 900 Balance 797.741 / 1019.874 26.146 / 26.146 Weight 175 lb 186 lb 5.99 oz 196 lb Constitutional Constitutional: no acute distress *Routine Respiratory Exam Respiratory: Present CTA bilaterally *Routine Cardiovascular Exam Cardiovascular: Present RRR *Routine Extremities Exam Extremities: Absent cyanosis, clubbing or edema *Routine Neurological Exam Neurological: Present alert and oriented X3 Progress Note: A&P Assessment and plan (1) Ventricular tachycardia: Status: Acute (2) AICD discharge: Status: Acute (3) Coronary artery disease: Status: Acute (4) Ischemic cardiomyopathy with implantable cardioverter-defibrillator (ICD): Status: Acute (5) CML (chronic myelocytic leukemia): Status: Acute (6) Heart failure with reduced ejection fraction: Status: Acute Assessment and Plan Assessment and Plan for All Diagnoses:: 1.? Recurrent V. tach prompting AICD discharge.? [place] related to medication non-compliance (related to GI upset caused by radiation therapy for esophageal cancer therapy) Switched to nadolol 40 mg daily (longer half life which may help prevent breakthrough arrhythmias) yesterday. Will increase to 80 mg daily today to try and stop esmolol IV if no further V. tach. Continue amiodarone 40 mg twice daily AICD generator change today due to battery at end-of-life indication 2.? HFrEF, acute on chronic with elevated BNP at 1390 but CXR negative Resume entresto 97/103 mg twice daily, Farxiga 10 mg daily (or Jardiance while in the hospital), eplerenone 25 mg daily (or spironolactone 25 mg daily while in hospital) and Lasix 20 mg daily as needed 3.? History of atrial arrhythmias and recent DVT/PE Xarelto on hold for AICD generator change. Plan to resume tomorrow evening. 4.? CAD, clinically stable Continue aspirin 81 mg daily Continue atorvastatin 40 mg daily 5.? CML Continue Sprycel 6.? Esophageal cancer status post chemo and radiation therapy Continue PPI therapy Anticipate keeping overnight with consideration for discharge tomorrow. If patient continues to have issues with tolerating oral medications due to nausea we may need to consider PEG placement in the future.
--- NOTE | 2022-08-01 07:46 | IR_ITS ---
APPROVED REPORT Patient Location: Inpatient Pacu Rn: JUAN Johnson RT (R) PROCEDURES 1. Pocket Revision 2. Removal of old Pacemaker 3. Implant of Permanent Pacemaker INDICATION End of battery life. Informed consent was obtained prior to the procedure. COMPLICATIONS None Estimated Blood Loss: Less than 10 ML TECHNIQUE 1% lidocaine with epinephrine used to anesthetize the left anterior aspect of the chest. Scalpel was used to make the initial cutaneous incision and then used to dissect down to the existing pacemaker generator. The generator was removed from the existing pocket. Digital manipulation was required along with intermittent usage of scalpel in order to revise the pocket. The leads were removed from the old generator. The new generator was screwed to the existing leads and secured into place. Electronic interrogation proved acceptable thresholds and voltage within the lead. Antibiotics were used to flush the pocket and the pacemaker was secured using 3-0 silk into the newly revised pocket. Monocryl was used to close the subcutaneous tissue and then gee were placed on the cutaneous area in order to approximate the incision. Patient was transferred to the postop holding area in stable condition. INTERROGATION Generator Model number: [id number] Generator Serial number: [id number] Atrial lead model number: 2088TC/52 Atrial lead serial number: [id number] P-wave: 3MV Impedence: 625V@.4 MS Threshold: 360 OHMS Right Ventricular lead model number: [id number] Right Ventricular lead serial number: [id number] R-wave: 6MV Impedence: 1.0V@0.4 MS Threshold: 360 OHMS Pacing Parameters: Mode: DDDR Base/Max Track:60 ppm / 110 ppm No diaphragmatic stimulation at 10 volts. IMPRESSION 1. Successful Pocket Revision 2. Successful Removal of old Pacemaker 3. Successful Implant of Permanent Pacemaker PLAN 1. Postop wound care. Electronically signed by : Arvind Nuñez MD 08/16/2022 09:52:40
--- NOTE | 2022-08-01 07:55 | EXP.ACUTE.PN ---
Subjective *Date: 08/01/22 *Time: 12:27 Interval history: Doing well this morning. Heart rate flip-flopping between slow V. tach and sinus rhythm. Continues to require esmolol drip overnight. N.p.o. this morning in anticipation of exchanging his generator for his AICD. Denies any shortness of breath or chest pain. Does feel uncomfortable when his heart is racing fast. No nausea or vomiting. Appears to be somewhat depressed this morning. Still having a hard time eating/taking meds because of pain from his esophagus. Medical Exam Vital signs and Labs for Last 24 Hours: Vital Signs Temp Pulse Pulse Resp BP Pulse Ox 08/01/22 06:00 70 20 111/72 92 L 08/01/22 04:00 113 H 20 104/80 L 95 08/01/22 04:00 117 H 08/01/22 04:00 97.7 F 08/01/22 04:00 97.7 F 08/01/22 01:00 93 L 07/31/22 21:00 95 08/01/22 02:00 60 20 115/60 94 L 08/01/22 00:01 114 H 08/01/22 00:00 97.6 F 07/31/22 23:49 116 H 21 111/90 97 07/31/22 20:00 71 07/31/22 22:00 117 H 22 131/104 H 95 07/31/22 20:00 60 16 120/73 95 07/31/22 20:00 98.3 F 07/31/22 18:00 121 H 113/84 95 07/31/22 16:00 60 07/31/22 16:00 112 H 97 07/31/22 16:00 97.6 F 07/31/22 08:00 70 07/31/22 12:00 120 H 07/31/22 12:00 98.3 F 07/31/22 08:00 117 H 97 Intake and Output 07/31/22 07/31/22 08/01/22 15:59 23:59 07:59 Intake Total 462.133 / 3340.504 0 / 3340.504 464.013 / 464.013 Output Total 220 / 2440 500 / 2440 400 / 400 Balance 242.133 / 900.504 -500 / 900.504 64.013 / 64.013 Intake: Intake, Oral Amount 240 / 480 0 / 480 240 / 240 Intake, Total IV Amount 222.133 / 2860.504 224.013 / 224.013 Output: Output, Urine Amount 220 / 2440 500 / 2440 400 / 400 Other: Number of Unmeasured Voids 1 1 Number of Unmeasured Emesis 1 Episodes Weight 88.904 kg Patient Weight 08/01/22 23:59 Weight 88.904 kg Laboratory Results - last 24 hr 08/01/22 05:50: WBC 3.6 L D, RBC 3.66 L, Hgb 11.3 L, Hct 33.9 L, MCV 92.8, MCH 31.0, MCHC 33.4, RDW 24.5 H, Plt Count 105 L, MPV 9.3, Neut % (Auto) 68.8, Lymph % (Auto) 16.1, [place] % (Auto) 14.1 H, Eos % (Auto) 0.7, Baso % (Auto) 0.2, Neut # (Auto) 2.5, Lymph # (Auto) 0.6 L, [place] # (Auto) 0.5, Eos # (Auto) 0.0, Baso # (Auto) 0.0 08/01/22 05:50: Sodium 135 L, Potassium 4.3, Chloride 103, Carbon Dioxide 24, Anion Gap 12.3, BUN 12, Creatinine 0.80, Estimated Creat Clear 89, Estimated GFR 96, Est GFR ( Amer) 116, Glucose 117 H, Calcium 7.9 L, Magnesium 1.8, Total Bilirubin 0.8, AST 38, ALT 36 D, Alkaline Phosphatase 62, Total Protein 5.6 L, Albumin 3.2 L, Globulin 2.4, Albumin/Globulin Ratio 1.3 I & O for Labs for Last 24 Hours: Intake & Output 07/29/22 07/30/22 07/31/22 08/01/22 23:59 23:59 23:59 23:59 Intake Total 349.37 / 349.37 3100.504 / 3340.504 464.013 / 464.013 Output Total 400 / 400 2290 / 2440 400 / 400 Balance -50.63 / -50.63 810.504 / 900.504 64.013 / 64.013 Weight 84.538 kg 84.538 kg 88.904 kg Constitutional: Present no acute distress Head: Present atraumatic and normocephalic ENT: Present normal exam Neck: Present normal inspection Respiratory: Present normal respiratory effort; Absent accessory muscle use, rhonchi, wheezes or crackles Cardiac: Present Tachycardia GI: Present soft, tenderness (Epigastric) and normal bowel sounds; Absent distention Extremities: Present normal inspection and full ROM Skin: Present intact; Absent erythema Neuro: Present Cranial Nerve 2-12 Intact, Grossly Intact, alert, awake, oriented x 3 and moves all extremities Assessment and Plan *Assessment and plan (1) Ventricular tachycardia: Status: Acute Category: Medical Code(s): I47.20 - Ventricular tachycardia, unspecified (2) AICD discharge: Status: Acute Category: Medical Code(s): Z45.02 - Encounter for adjustment and management of
--- NOTE | 2022-08-01 14:00 | PC.NURSE ---
Annamarie Stephens Rn from dental laboratory worker at bedside at this time to take pt to dental laboratory worker. 1400
--- NOTE | 2022-08-01 15:07 | EXP.ANES.CKL ---
[facility] Disclaimer: The information contained in this section may have been updated after the patient was seen, as this information can be updated by other users. Medical History (Updated 07/30/22 @ 13:48 by Aubrey Hager MD) Atrial fibrillation Chemotherapy induced nausea and vomiting CML (chronic myelocytic leukemia) Coronary artery disease DVT (deep venous thrombosis) Esophageal cancer GERD (gastroesophageal reflux disease) Groin hematoma History of GI bleed Hyperlipidemia Hypertension Ischemic cardiomyopathy with implantable cardioverter-defibrillator (ICD) Leukemia Myocardial infarction Pacemaker PNA (pneumonia) Pulmonary edema Ventricular tachycardia Surgical History AICD (automatic cardioverter/defibrillator) present History of cardiac radiofrequency ablation (RFA) History of percutaneous coronary intervention Family History Other Cancer Family history of hyperlipidemia Family history of hypertension Family history of myocardial infarction Social History Smoking Status: Never smoker alcohol intake: never substance use type: other current occupational status: retired Travel in the last 8 weeks: [employer] [place] household members: spouse housing: house caffeine: Yes [facility] Anesthesia Checklist Patient Identification Patient Identification: Arm Band Structural Data Admitted From: Inpatient Planned Operative Procedure/s: Pacemaker exchange. Consent for Planned Operative Procedure(s) Verified: Yes Verified Documents: Surgical Consent and History and Physical NPO Status Verified Time NPO: 00:00 Additional verifications Patient : No Anesthesia Reactions: No Hx Blood Transfusions: No Blood Transfusion Reaction: No Cephalosporin Allergy: No Previous Colonoscopy: No Airway Assessment C-Spine Mobility Assessed: Yes TMJ Mobility Assessed: Yes Dentition: Edentulous Neurological Assessment Level of Consciousness: Awake, Alert, Appropriate and Follows Commands Hx Seizures: No Numbness or tingling in extremities: No Anesthesia Plan Anesthesia Risk discussed: Yes ASA Class: III Anesthesia Type: MAC Preoperative Comments Pre-Operative Comments: Mild Leukemia. Ventricular Tachycardia. Atrial Fib. Cardiac instability.
--- NOTE | 2022-08-01 23:12 | ECG_ITS ---
APPROVED REPORT Exam: Resting ECG HR:60 bpm ECG Measurements Heart Rate 60 AXES WI 211 P 118 QRSd 116 QRS 15 QT 406 T -78 QTc 406 Conclusion ELECTRONIC ATRIAL PACEMAKER ANTERIOR MYOCARDIAL INFARCTION , PROBABLY RECENT [40+ ms Q WAVE AND/OR ST/T ABNORMALITY IN V3/V4] POSSIBLE INFERIOR MYOCARDIAL INFARCTION , OF INDETERMINATE AGE [30 ms Q WAVE IN II/aVF] ACUTE [place] UNCONFIRMED REPORT Electronically signed by : Brenden Keita MD 08/03/2022 21:42:28
--- NOTE | 2022-08-01 23:16 | PC.NURSE ---
pt had approximately 2 minute run of vtach, HR low 100's, esmolol drip at 50mcg/kg/min, pt mentating well, no chest pain, bp 126/73, ekg completed, notified MD Nuñez, no new orders at this time, instructed to keep esmolol drip at current rate
--- NOTE | 2022-08-01 23:25 | PC.NURSE ---
notified TIFFANIE Arteaga of pt's continued rhythm change, no new orders at this time
[2022-08-02] VITALS (12 sets, daily range): BP systolic 83–135; BP diastolic 51–85; PULSE 60–123; RESP 12–18; TEMP 36.4–37.1; O2SAT 92–97; BMI 26.7
--- NOTE | 2022-08-02 01:27 | PC.NURSE ---
notified TIFFANIE Arteaga of pt's prolonged vtach with increased HR and pt now feeling weak and flushed, instructed to notify MD Nuñez, paging MD Nuñez
--- NOTE | 2022-08-02 01:34 | PC.NURSE ---
notified MD Nuñez of pt's sustained vtach and pt becoming symptomatic, instructed this RN to give 100mg IV bolus Lidocaine and then start lidocaine drip at 1mg/min; spoke with Brendon with night pharmacy and confirmed doses
--- NOTE | 2022-08-02 02:15 | PC.NURSE ---
pt's rhythm converted back to NSR with rate of 60; pt had an episode of emesis, zofran given per order and cool cloth; pt stated feeling better now that I vomited ; pt resting, call light within reach
--- NOTE | 2022-08-02 06:28 | PC.NURSE ---
pt stood at side of bed to void and went back into slow VT rhythm on monitor, had pt try vagal maneuvers, change position, and this RN changed location of telemetry leads but no success, HR 120's and slow VT reading on monitor, notified TIFFANIE Arteaga no new orders at this time, karol Nuñez
--- NOTE | 2022-08-02 06:39 | PC.NURSE ---
MD Nuñez instructed this RN to give 100mg IV lidocaine and increase drip to 2mg/min
[2022-08-02 06:52] LABS: Basophils % 0.2 % (0.1-2.0); Eosinophils % 0.4 % (0.1-12.0); Hematocrit 31.5 % (42.0-52.0); Hemoglobin 10.7 g/dL (14.1-18.0); Lymphocytes # 0.4 K/mm3 (0.7-4.5); Lymphocytes % 9.2 % (10-50); Mean Corpuscular HGB Conc 33.9 g/dL (31.8-35.4); Mean Corpuscular Hemoglobin 30.9 pg (27.0-31.2); Mean Corpuscular Volume 91.1 fl (80-94); Mean Platelet Volume 9.4 fl (7.4-10.4); Monocytes # 0.4 K/mm3 (0.1-1.0); Monocytes % 10.5 % (1.7-9.3); Neutrophils # 3.2 K/mm3 (1.8-7.8); Neutrophils % 79.6 % (37.0-80.0); Platelet Count 86 K/mm3 (142-424); Red Blood Count 3.46 M/mm3 (4.60-6.20); Red Cell Distribution Width 24.6 % (11.5-17.5)
[2022-08-02 06:54] LABS: Alanine Aminotransferase 33 U/L (12-78); Albumin/Globulin Ratio 1.2 (1.1-1.8); Alkaline Phosphatase 58 U/L (38-126); Anion Gap 13.7 mEq/L (5-15); Aspartate Amino Transferase 37 U/L (17-59); Bilirubin,Total 0.9 mg/dl (0.2-1.3); Blood Urea Nitrogen 14 mg/dl (9-20); Calcium 7.7 mg/dl (8.4-10.2); Carbon Dioxide 23 mmol/L (22.0-30.0); Chloride 101 mmol/L (98-107); Creatinine Clearance Estimated 90 mL/min (50-200); Estimated Glomerular Filt Rate 112 ml/min (>60); GFR (African American) 136 ML/MIN (>60); Globulin 2.5 g/dL (1.3-3.2); Glucose 101 mg/dl (74-100); Potassium 3.7 mmoL/L (3.5-5.1); Sodium 134 mmol/L (136-145); Total Protein,Serum 5.5 g/dl (6.3-8.2)
--- NOTE | 2022-08-02 06:55 | PC.NURSE ---
esmolol drip at 50mcg/kg/min and lidocaine drip at 2mg/min, HR one teens, slow VT on monitor, pt has no chest pain and no nausea at this time, pt resting in bed, call light within reach
[2022-08-02 07:10] LABS: Magnesium 1.7 mg/dl (1.6-2.3)
--- NOTE | 2022-08-02 09:26 | EXP.CARD.PN ---
Subjective Subjective Date: 08/02/22 Time: 09:26 Principal diagnosis: V. tach with AICD firing Interval history: 67-year-old white male in bed eating breakfast in no acute distress. He relates a rough night due to recurrent and prolonged episodes of ventricular tachycardia for which she is usually symptomatic with lightheadedness, dizziness and weakness. Per Dr. Nuñez's instructions he was started on IV lidocaine overnight with some improvement in the amount of VT and number of episodes. Currently he is a pacing on telemetry at 60 bpm. He continues on IV esmolol at 50 mcg/kg/min and IV lidocaine at 2 mg/min along with oral amiodarone 400 mg twice daily and nadolol 80 mg daily. We did discuss transfer to services of concert pianist (either Dr. Saldana or Dr. Dowd) and patient initially agreed to transfer to [place] in [facility] since Dr. Saldana was the last EP to perform an ablation on him earlier this year. I did contact Dr. Saldana we did speak about Mr. Kaufman's case and he did give recommendations but would be unable to perform any procedure on the patient until next week. In the interim while I was on the phone call with Dr. Saldana patient spoke with his family and they changed her mind and wish to go to [place] to Dr. Dowd for shorter transportation times for the family. I did contact Dr. Dowd who was happy to work on getting the patient transferred but did relate that he did not feel a procedure would be the first line option for this patient due to his dual cancers and compromised state along with his severe cardiomyopathy. His recommendation was to increase amiodarone to 400 mg 3 times daily along with beginning IV amiodarone 1 mg/min to achieve a loading goal of 10 g in the next few days. He suggested using lidocaine short-term due to potential neurologic side effects with plans to consider switching to mexiletine (not available at our hospital) in the future. He also recommended if the patient does not want to proceed with any of this then discuss hospice. Exam Data for Last 24 hours Vital signs and Labs for Last 24 Hours: Temp Pulse Resp BP Pulse Ox FiO2 98.8 F 65 16 105/60 L 97 97.8 08/02/22 08:00 08/02/22 07:13 08/02/22 06:00 08/02/22 06:00 08/02/22 07:13 07/31/22 04:00 Laboratory Results - last 24 hr 08/02/22 05:45: Sodium 134 L, Potassium 3.7, Chloride 101, Carbon Dioxide 23, Anion Gap 13.7, BUN 14, Creatinine 0.70, Estimated Creat Clear 90, Estimated GFR 112, Est GFR ( Amer) 136, Glucose 101 H, Calcium 7.7 L, Total Bilirubin 0.9, AST 37, ALT 33, Alkaline Phosphatase 58, Total Protein 5.5 L, Albumin 3.0 L, Globulin 2.5, Albumin/Globulin Ratio 1.2 08/02/22 05:45: WBC 4.0 L, RBC 3.46 L, Hgb 10.7 L, Hct 31.5 L, MCV 91.1, MCH 30.9, MCHC 33.9, RDW 24.6 H, Plt Count 86 L, MPV 9.4, Neut % (Auto) 79.6, Lymph % (Auto) 9.2 L, [place] % (Auto) 10.5 H, Eos % (Auto) 0.4, Baso % (Auto) 0.2, Neut # (Auto) 3.2, Lymph # (Auto) 0.4 L, [place] # (Auto) 0.4, Eos # (Auto) 0.0, Baso # (Auto) 0.0 08/02/22 05:45: Magnesium 1.7 I & O for Last 24 hours: Intake & Output 07/30/22 07/31/22 08/01/22 08/02/22 11:59 11:59 11:59 11:59 Intake Total 2987.741 / 3209.874 1876.146 / 1699.270 0030 / 2919 Output Total 2190 / 2190 1200 / 1200 1100 / 1100 Balance 797.741 / 1019.874 676.146 / 398.653 2852 / 1819 Weight 175 lb 186 lb 5.99 oz 196 lb 197 lb 6 oz Constitutional Constitutional: chronically ill appearing *Routine Respiratory Exam Respiratory: Present CTA bilaterally and diminished air movement *Routine Cardiovascular Exam Cardiovascular: Present RRR *Routine Neurological Exam Neurological: Present alert, oriented X3 and CN II-XII intact Progress Note: A&P Assessment and plan (1) Ventricular tachycardia: Status: Acute (2) AICD discharge: Status: Acute (3) Coronary artery disease: Status: Acute (4) Ischemic cardiomyopathy with implantable cardioverter-defibrillator (ICD):
--- NOTE | 2022-08-02 09:51 | PC.NURSE ---
courtesy tech dinah: pt is lying in bed with call light within reach. no further requests at this time.
--- NOTE | 2022-08-02 14:30 | EXP.BH.CONS ---
History of Present Illness *Admission Date: 07/30/22 *History of present illness: I interviewed patient at his bedside. -he is alone -he states that he came in cause of heart issues -states that he had a whole new pacemaker placed yesterday He states that he was really down and discouraged yesterday. -that he is hooked up to 3 different IV medicines -and he can't take these home -that he doesn't want to be on hospice -he doesn't want to -and then the budget manager in [place] called today with 2 different options for him -another oral medicine to try; or an ablation -he states that now he has hope; so his mood is better He states that everything really started in February 2022. -started with a tick bite; that he needed antibiotics for -then he got strep; from being around the [facility] -another antibiotic -then a bladder infection; he states they did blood work then and his WBCs were really high which was concerning cause he was on antibiotics -so they did more tests; and he found out that he has CML leukemia -he states that he also had a NM with stents in February -all the above happened in the time frame of 1 month -he went to oncology in March; they confirmed CML; and he was put on oral chemo -that worked; and his levels were better -then in April 2022; he had tachycardia; need cardioverted; nothing worked -they did a CT scan and found a mass in esophagus -so diagnosed with 2 different cancers in 2 months He has had chemo recently; has esophageal cancer. -he states that at first they didn't even want to give him chemo; cause of his heart health -he had a heart attack 15 years ago; and this took away 40% of his heart function -but they did give this to him -he did great for 3 weeks; then he has had nausea -he can't eat -and has a horrible taste in his mouth all the time -he has lost 35 pounds He states that staying in the bed here is hard on him. -he is generally an active person -likes to go for walks -likes to be outside He states that he will soon be transferred to [facility]. -that this is where they will either start the new medicine or the ablation -he states that yesterday when he was thinking about everything ahead of him; he was didn't have a good outlook -he was tired of the nausea; the hospitals; the lack of options for him -he states that today he is much better -cause he has options -he states that he feels this is not his end game and that he has cheated so many times; so he can't now -he doesn't feel that he is doomed for hospice any longer He does worry about his . -how she will handle things if he doesn't survive the procedures and new medicine -he states that they have been for 45 years -he doesn't leave her in a good financial situation and he worries about her -their son is stepping up and helping out with things He states that he tries not to worry. -he tries to give it over to his denise -but with everything going on; he struggles with this too -he believes in a GOD -but wonders why all this is happening to him He states that he has never been on medicines for anxiety or depression. -he has always just dealt with things -he states that he doesn't feel he needs anything right now -cause it will not change his situation [facility] Disclaimer: The information contained in this section may have been updated after the patient was seen, as this information can be updated by other users. Medical History (Updated 08/02/22 @ 14:41 by Jackie Beltran APRN) Atrial fibrillation Chemotherapy induced nausea and vomiting CML (chronic myelocytic leukemia) Coronary artery disease Depression due to physical illness DVT (deep venous thrombosis) Esophageal cancer GERD (gastroesophageal reflux disease) Groin hematoma History of GI bleed Hyperlipidemia Hypertension Ischemic cardiomyopathy with implantable cardioverter-defibrillator (ICD) Leukemia Myocardial infarction Pacemaker P
--- NOTE | 2022-08-02 17:54 | EXP.ACUTE.PN ---
Subjective *Date: 08/02/22 *Time: 17:54 Interval history: Patient still having epigastric discomfort. Doing better with taking his medications. Tolerating p.o. fluids. No edwar chest pain, shortness of breath, or fever. Still having intermittent episodes of V. tach overnight. Currently on esmolol and lidocaine drips. Medical Exam Vital signs and Labs for Last 24 Hours: Vital Signs Temp Pulse Pulse Resp BP Pulse Ox 08/02/22 16:00 93 L 08/02/22 16:00 60 08/02/22 12:00 60 08/02/22 08:00 60 08/02/22 11:38 98.0 F 08/02/22 08:00 98.8 F 08/02/22 07:13 65 97 08/02/22 05:00 60 14 99/59 L 94 L 08/02/22 06:00 98.0 F 08/02/22 04:00 98.1 F 08/02/22 06:00 60 16 105/60 L 95 08/02/22 04:00 60 16 83/51 L 94 L 08/02/22 04:00 63 08/02/22 00:00 60 08/01/22 20:00 61 08/02/22 02:00 97.6 F 08/02/22 00:00 97.8 F 08/02/22 02:00 123 H 15 113/84 93 L 08/01/22 20:00 98.1 F 08/01/22 21:45 60 18 127/72 97 08/01/22 20:00 97 08/02/22 00:00 60 12 110/64 97 08/01/22 22:00 60 14 126/73 97 08/01/22 20:45 60 16 125/78 96 08/01/22 19:45 98.1 F 60 20 117/63 93 L 08/01/22 18:45 61 18 110/65 97 Intake and Output 08/02/22 08/02/22 08/02/22 07:59 15:59 23:59 Intake Total 240 / 720 480 / 720 Output Total 0 / 800 450 / 800 350 / 800 Balance 240 / -80 30 / -80 -350 / -80 Intake: Intake, Oral Amount 240 / 720 480 / 720 Output: Output, Urine Amount 0 / 800 450 / 800 350 / 800 Other: Number of Voids 1 Number of Unmeasured Voids 0 1 Weight 89.528 kg Patient Weight 08/02/22 23:59 Weight 89.528 kg Laboratory Results - last 24 hr 08/02/22 05:45: Sodium 134 L, Potassium 3.7, Chloride 101, Carbon Dioxide 23, Anion Gap 13.7, BUN 14, Creatinine 0.70, Estimated Creat Clear 90, Estimated GFR 112, Est GFR ( Amer) 136, Glucose 101 H, Calcium 7.7 L, Total Bilirubin 0.9, AST 37, ALT 33, Alkaline Phosphatase 58, Total Protein 5.5 L, Albumin 3.0 L, Globulin 2.5, Albumin/Globulin Ratio 1.2 08/02/22 05:45: WBC 4.0 L, RBC 3.46 L, Hgb 10.7 L, Hct 31.5 L, MCV 91.1, MCH 30.9, MCHC 33.9, RDW 24.6 H, Plt Count 86 L, MPV 9.4, Neut % (Auto) 79.6, Lymph % (Auto) 9.2 L, [place] % (Auto) 10.5 H, Eos % (Auto) 0.4, Baso % (Auto) 0.2, Neut # (Auto) 3.2, Lymph # (Auto) 0.4 L, [place] # (Auto) 0.4, Eos # (Auto) 0.0, Baso # (Auto) 0.0 08/02/22 05:45: Magnesium 1.7 I & O for Labs for Last 24 Hours: Intake & Output 07/30/22 07/31/22 08/01/22 08/02/22 23:59 23:59 23:59 23:59 Intake Total 349.37 / 349.37 3100.504 / 3340.504 4103.013 / 4343.013 720 / 720 Output Total 400 / 400 2290 / 2440 1800 / 1800 800 / 800 Balance -50.63 / -50.63 810.504 / 142.282 4522.013 / 2543.013 -80 / -80 Weight 84.538 kg 84.538 kg 88.904 kg 89.528 kg Constitutional: Present no acute distress Head: Present atraumatic and normocephalic ENT: Present normal exam Neck: Present normal inspection Respiratory: Present normal respiratory effort; Absent accessory muscle use, rhonchi, wheezes or crackles Cardiac: Present Reg Rate and Rhythm GI: Present soft, tenderness (Epigastric) and normal bowel sounds; Absent distention Extremities: Present normal inspection and full ROM Skin: Present intact; Absent erythema Neuro: Present Cranial Nerve 2-12 Intact, Grossly Intact, alert, awake, oriented x 3 and moves all extremities Assessment and Plan *Assessment and plan (1) Ventricular tachycardia: Status: Acute Category: Medical Code(s): I47.20 - Ventricular tachycardia, unspecified (2) AICD discharge: Status: Acute Category: Medical Code(s): Z45.02 - Encounter for adjustment and management of automatic implantable cardiac defibrillator (3) Coronary artery disease: Status: Acute Qualifiers: Coronary Disease-Associated Artery/Lesion type: [place] artery [place]
[2022-08-03] VITALS (15 sets, daily range): BP systolic 97–141; BP diastolic 59–99; PULSE 60; RESP 14–20; TEMP 36.4–37.1; O2SAT 92–99; BMI 26.6
[2022-08-03 06:25] LABS: Alanine Aminotransferase 31 U/L (12-78); Albumin Level 2.9 g/dl (3.5-5.0); Albumin/Globulin Ratio 1.2 (1.1-1.8); Alkaline Phosphatase 57 U/L (38-126); Anion Gap 13.5 mEq/L (5-15); Aspartate Amino Transferase 32 U/L (17-59); Bilirubin,Total 0.8 mg/dl (0.2-1.3); Blood Urea Nitrogen 15 mg/dl (9-20); Calcium 7.6 mg/dl (8.4-10.2); Carbon Dioxide 23 mmol/L (22.0-30.0); Chloride 97 mmol/L (98-107); Creatinine Clearance Estimated 89 mL/min (50-200); Estimated Glomerular Filt Rate 84 ml/min (>60); GFR (African American) 102 ML/MIN (>60); Globulin 2.5 g/dL (1.3-3.2); Glucose 117 mg/dl (74-100); Potassium 3.5 mmoL/L (3.5-5.1); Sodium 130 mmol/L (136-145); Total Protein,Serum 5.4 g/dl (6.3-8.2)
[2022-08-03 06:26] LABS: Basophils % 0.1 % (0.1-2.0); Eosinophils % 0.4 % (0.1-12.0); Hematocrit 31.5 % (42.0-52.0); Hemoglobin 10.6 g/dL (14.1-18.0); Lymphocytes # 0.5 K/mm3 (0.7-4.5); Lymphocytes % 12.2 % (10-50); Mean Corpuscular HGB Conc 33.8 g/dL (31.8-35.4); Mean Corpuscular Volume 91.6 fl (80-94); Mean Platelet Volume 9.2 fl (7.4-10.4); Monocytes # 0.5 K/mm3 (0.1-1.0); Monocytes % 11.6 % (1.7-9.3); Neutrophils # 3.2 K/mm3 (1.8-7.8); Neutrophils % 75.8 % (37.0-80.0); Platelet Count 84 K/mm3 (142-424); Red Blood Count 3.43 M/mm3 (4.60-6.20); Red Cell Distribution Width 24.8 % (11.5-17.5); White Blood Count 4.2 K/mm3 (4.8-10.8)
[2022-08-03 07:08] LABS: Magnesium 1.8 mg/dl (1.6-2.3)
--- NOTE | 2022-08-03 07:33 | PC.NURSE ---
during am rounds day ROSA MARIA Perry found pt's IV in left forearm had infiltrated, removing IV and starting new IV; pt requested to take magic mouthwash and carafate after eat breakfast
--- NOTE | 2022-08-03 08:30 | EXP.CARD.PN ---
Subjective Subjective Date: 08/03/22 Time: 08:30 Principal diagnosis: V. tach with AICD firing Interval history: 67-year-old white male in bed in no acute distress. He did have nausea and vomiting this morning but overall last evening he had no further episodes of lightheadedness or dizziness. Telemetry reviewed with no episodes of ventricular tachycardia since yesterday morning. I did contact Dr. Dowd and gave him an update on the patient's status. He recommended continuing both oral and IV amiodarone until the patient received at least 8 g loading (which should be acheived later today/ tomorrow) along with starting mexiletine today 150 mg 3 times daily with food and reducing his lidocaine to 1 mg/min today. If he continues to improve with no VT overnight we can discontinue lidocaine tomorrow and potentially send the patient home for outpatient follow-up. Exam Data for Last 24 hours Vital signs and Labs for Last 24 Hours: Temp Pulse Resp BP Pulse Ox FiO2 98.7 F 60 16 112/73 94 L 97.8 08/03/22 00:00 08/03/22 06:00 08/03/22 06:00 08/03/22 06:00 08/03/22 06:00 07/31/22 04:00 Laboratory Results - last 24 hr 08/03/22 05:55: Sodium 130 L, Potassium 3.5, Chloride 97 L, Carbon Dioxide 23, Anion Gap 13.5, BUN 15, Creatinine 0.90 D, Estimated Creat Clear 89, Estimated GFR 84, Est GFR ( Amer) 102 D, Glucose 117 H, Calcium 7.6 L, Total Bilirubin 0.8, AST 32, ALT 31, Alkaline Phosphatase 57, Total Protein 5.4 L, Albumin 2.9 L, Globulin 2.5, Albumin/Globulin Ratio 1.2 08/03/22 05:55: WBC 4.2 L, RBC 3.43 L, Hgb 10.6 L, Hct 31.5 L, MCV 91.6, MCH 31.0, MCHC 33.8, RDW 24.8 H, Plt Count 84 L, MPV 9.2, Neut % (Auto) 75.8, Lymph % (Auto) 12.2, [place] % (Auto) 11.6 H, Eos % (Auto) 0.4, Baso % (Auto) 0.1, Neut # (Auto) 3.2, Lymph # (Auto) 0.5 L, [place] # (Auto) 0.5, Eos # (Auto) 0.0, Baso # (Auto) 0.0 08/03/22 05:55: Magnesium 1.8 I & O for Last 24 hours: Intake & Output 07/31/22 08/01/22 08/02/22 08/03/22 11:59 11:59 11:59 11:59 Intake Total 2987.741 / 3209.874 1876.146 / 5703.503 9361 / 3409 1070.409 / 1070.409 Output Total 2190 / 2190 1200 / 1200 1550 / 1550 1200 / 1200 Balance 797.741 / 1019.874 676.146 / 822.005 0431 / 1859 -129.591 / -129.591 Weight 186 lb 5.99 oz 196 lb 197 lb 6 oz 196 lb 8 oz Constitutional Constitutional: no acute distress *Routine Respiratory Exam Respiratory: Present CTA bilaterally *Routine Cardiovascular Exam Cardiovascular: Present RRR *Routine Extremities Exam Extremities: Absent cyanosis, clubbing or edema *Routine Neurological Exam Neurological: Present alert, oriented X3 and CN II-XII intact Progress Note: A&P Assessment and plan (1) Ventricular tachycardia: Status: Acute (2) AICD discharge: Status: Acute (3) Coronary artery disease: Status: Acute (4) Ischemic cardiomyopathy with implantable cardioverter-defibrillator (ICD): Status: Acute (5) CML (chronic myelocytic leukemia): Status: Acute (6) Heart failure with reduced ejection fraction: Status: Acute (7) Depression due to physical illness: Status: Acute Assessment and Plan Assessment and Plan for All Diagnoses:: 1.? Recurrent V. tach prompting AICD discharge.? [place] related to medication non-compliance (related to GI upset caused by radiation therapy for esophageal cancer therapy) Continue nadolol 80 mg daily Continue amiodarone 400 mg TID AICD generator changed 08/01/2022 due to battery at end-of-life indication Stop esmolol Continue IV lidocaine but reduce to 1 mg/min Continue IV amiodarone 1 mg/min at recommendation of Dr. Dowd Start mexiletine 150 mg 3 times daily with meals If no recurrent V. tach in the next 24 hours then patient could be discharged home tomorrow for outpatient follow-up with Dr. Dowd 2.? HFrEF, acute on chronic with elevated BNP at 1390 but CXR negative Continue entresto 97/103 mg twice daily, Farxiga 10 mg daily (or Jardiance while in the hospital),
--- NOTE | 2022-08-03 09:49 | PC.NURSE ---
0710 during bedside rounds it was noted that pt left fa iv was infiltrated. pt had amio and esmolol infusing in that site. notified dr gautam and trisha solis that medications were not compatible with lidocaine and new iv was to be inserted. per trisha solis, stop lidocaine and esmolol drip at 0730. Amiodarone was restarted in existing iv in r fa. 0741 [address]isha sol[address] spoke with Dr Nuñez and Dr Dowd who ordered to keep pt on lidocaine drip but decrease rate to 1mg/min and to dc esmolol drip. new iv was able to be started at 0750. lidocaine drip restarted per trisha solis order at 1mg/min
--- NOTE | 2022-08-03 10:36 | HMH.PTEV ---
Physical Therapy Evaluation Rehab PT IP Evaluation Start: 08/03/22 09:02 Freq: ONCE Status: Active Protocol: Document 08/03/22 10:31 GIORGIO (Rec: 08/03/22 10:36 PHORNE [id number]) Subjective/History History History 67 yowm adm to [facility] with V-tach and general weakness. Hx of cardiomyopathy with AICD placement, coronary artery disease, atrial fibrillation on chronic anticoagulation, CML, esophageal cancer. He reports he lives with spouse, 1 step to enter the home, and he is generally indepedent with all mobility at baseline without AD. Subjective Subjective He reports feeling weak and mildly lightheaded with upright positioning. Rehab PT IP Eval Objective Appearance Patient Behavior Appropriate Patient Orientation Person,Place,Time Difficulty following instructions none Speech Pattern Clear Ambulation Patient Able to Ambulate Yes Ambulation Observation IP General Gait Pattern Observation Shuffling Step Ambulation Distance (feet) 5 Ambulation Assistive Device None Ambulation Ability Contact Guard/Hand Hold Balance Ability to Arise Able, uses arms to help Sitting Balance Steady, safe Standing Balance Steady, wide stance Dynamic Sitting Balance Ability Good Dynamic Standing Balance Ability Good Transfers Bed Transfer Ability Contact Guard/Hand Hold Chair Transfer Ability Contact Guard/Hand Hold Sit to Stand Bed Transfer Ability Contact Guard/Hand Hold Sit to Stand Chair Transfer Ability Contact Guard/Hand Hold ROM All Extremities PT ROM Status WFL MMT All Extremities PT MMT WFL Rehab PT IP prob,goals,plan Problems Date of Evaluation: 08/03/22 PT IP Problems Bed Mobility,Transfers,Gait Rehab Potential Rehab Potential Good Plan PT Intervention Plan Bed Mobility,Transfers,Gait, Therapeutic Exercise PT Plan Frequency Daily Duration LOS Discharge Goals Bed Transfer Ability Supervision/Stand by Sit to Stand Chair Transfer Ability Supervision/Stand by Ambulation Assistive Device None Ambulation Distance (feet) 30 Discharge Plan PT Discharge Plan Pt is currently appropriate to return home once medically
--- NOTE | 2022-08-03 10:55 | DIET.NUTRFU ---
Patient's pain secondary to esophageal cancer has resolved with magic mouth wash. Continues to have nausea with meds in place. Appetite is slightly improving, not eating a lot of meat, high protein shakes ordered and consuming. Reviewed and provided multiple high calorie suggestions along with milkshake recipes to try.
--- NOTE | 2022-08-03 11:01 | EXP.ACUTE.PN ---
Subjective *Date: 08/03/22 *Time: 11:01 Interval history: Patient has not had any runs of V. tach for over 24 hours. Still having a difficult time with p.o. intake. Had some emesis this morning after breakfast. Slowly tolerating his meds. Magic mouthwash has helped some with his epigastric pain but still nauseous. No edwar chest pain, shortness of breath, confusion. Does feel weak. No bowel movement since admission. Medical Exam Vital signs and Labs for Last 24 Hours: Vital Signs Temp Pulse Pulse Resp BP Pulse Ox 08/03/22 08:00 98.0 F 08/03/22 01:00 94 L 08/03/22 06:00 60 16 112/73 94 L 08/03/22 04:00 60 15 97/59 L 92 L 08/03/22 02:00 60 14 129/77 95 08/03/22 00:00 98.7 F 60 16 121/77 94 L 08/02/22 22:00 93 L 08/02/22 22:00 60 18 135/85 95 08/02/22 20:00 60 16 92/51 L 92 L 08/02/22 20:00 60 08/02/22 16:00 93 L 08/02/22 16:00 60 08/02/22 12:00 60 08/02/22 11:38 98.0 F Intake and Output 08/02/22 08/03/22 08/03/22 23:59 07:59 15:59 Intake Total 442.88 / 1342.88 387.529 / 507.529 120 / 507.529 Output Total 950 / 1400 250 / 600 350 / 600 Balance -507.12 / -57.12 137.529 / -92.471 -230 / -92.471 Intake: Intake, Oral Amount 240 / 1140 180 / 300 120 / 300 Intake, Total IV Amount 202.88 / 202.88 207.529 / 207.529 Output: Output, Urine Amount 950 / 1400 250 / 600 350 / 600 Other: Number of Unmeasured Voids 1 1 Weight 89.131 kg Patient Weight 08/03/22 23:59 Weight 89.131 kg Laboratory Results - last 24 hr 08/03/22 05:55: Sodium 130 L, Potassium 3.5, Chloride 97 L, Carbon Dioxide 23, Anion Gap 13.5, BUN 15, Creatinine 0.90 D, Estimated Creat Clear 89, Estimated GFR 84, Est GFR ( Amer) 102 D, Glucose 117 H, Calcium 7.6 L, Total Bilirubin 0.8, AST 32, ALT 31, Alkaline Phosphatase 57, Total Protein 5.4 L, Albumin 2.9 L, Globulin 2.5, Albumin/Globulin Ratio 1.2 08/03/22 05:55: WBC 4.2 L, RBC 3.43 L, Hgb 10.6 L, Hct 31.5 L, MCV 91.6, MCH 31.0, MCHC 33.8, RDW 24.8 H, Plt Count 84 L, MPV 9.2, Neut % (Auto) 75.8, Lymph % (Auto) 12.2, [place] % (Auto) 11.6 H, Eos % (Auto) 0.4, Baso % (Auto) 0.1, Neut # (Auto) 3.2, Lymph # (Auto) 0.5 L, [place] # (Auto) 0.5, Eos # (Auto) 0.0, Baso # (Auto) 0.0 08/03/22 05:55: Magnesium 1.8 I & O for Labs for Last 24 Hours: Intake & Output 07/31/22 08/01/22 08/02/22 08/03/22 23:59 23:59 23:59 23:59 Intake Total 3100.504 / 3340.504 4103.013 / 4343.013 1162.88 / 1342.88 507.529 / 507.529 Output Total 2290 / 2440 1800 / 1800 1400 / 1400 600 / 600 Balance 810.504 / 724.133 8707.013 / 2543.013 -237.12 / -57.12 -92.471 / -92.471 Weight 84.538 kg 88.904 kg 89.528 kg 89.131 kg Constitutional: Present no acute distress Head: Present atraumatic and normocephalic ENT: Present normal exam Neck: Present normal inspection Respiratory: Present normal respiratory effort; Absent accessory muscle use, rhonchi, wheezes or crackles Cardiac: Present Reg Rate and Rhythm GI: Present soft, tenderness (Epigastric) and normal bowel sounds; Absent distention Extremities: Present normal inspection and full ROM Skin: Present intact; Absent erythema Neuro: Present Cranial Nerve 2-12 Intact, Grossly Intact, alert, awake, oriented x 3 and moves all extremities Assessment and Plan *Assessment and plan (1) Ventricular tachycardia: Status: Acute Category: Medical Code(s): I47.20 - Ventricular tachycardia, unspecified (2) AICD discharge: Status: Acute Category: Medical Code(s): Z45.02 - Encounter for adjustment and management of automatic implantable cardiac defibrillator (3) Coronary artery disease: Status: Acute Qualifiers: Coronary Disease-Associated Artery/Lesion type: [place] artery [place] vs. transplanted heart: [place] heart Associated angina: without angina Qualified Code(s): I25.10 - Atherosclerotic heart disease of [place] coronary a
--- NOTE | 2022-08-03 11:17 | PC.NURSE ---
drip rate on amiodarone changed to 33ml/hr per [place] in pharmacy 1117
--- NOTE | 2022-08-03 17:54 | PC.NURSE ---
at 1655 med pass pt stated that he would take carafate before eating and then take magic mouthwash after, as it has bothered his stomach in the past. when making rounds for med pass at 1755, pt stated that he no longer wanted to take the magic mouthwash this evening as he was sick to his stomach. pt was offered /given zofran and told the magic mouthwash was ordered again at 2100. pt stated he would take the medication then.
--- NOTE | 2022-08-03 21:25 | PC.NURSE ---
2044 Pt states he feel too nauseas to take his night time medication. 4mg Zofran and 5mg Compazine had been administered in the past 1.5 hrs. Can Lees [employer] notified, states she will enter in a 1x dose 5mg compazine to take now. Pt educated that it could take up to 1 hr for medication to work.
--- NOTE | 2022-08-03 21:55 | PC.NURSE ---
Pt states he still feels very nauseas and is unable to take night time meds, Can Lees notified. States she will order him phenergan.
[2022-08-04] VITALS (9 sets, daily range): BP systolic 108–136; BP diastolic 69–87; PULSE 60; RESP 13–20; TEMP 36.6–37; O2SAT 94–97; BMI 26.0
--- NOTE | 2022-08-04 00:30 | PC.NURSE ---
Night time meds late due to pt c/o nausea. Pt was approving of Ropinirole when scanning meds but once handed medication cup, pt stated he did not want to take it. Pill was taken out of med cup and put into sharp container, witnessed by Lynette Pereyra RN.
[2022-08-04 06:07] LABS: Basophils % 0.1 % (0.1-2.0); Eosinophils % 0.4 % (0.1-12.0); Hematocrit 33.6 % (42.0-52.0); Lymphocytes # 0.6 K/mm3 (0.7-4.5); Lymphocytes % 10.8 % (10-50); Mean Corpuscular HGB Conc 34.8 g/dL (31.8-35.4); Mean Corpuscular Hemoglobin 31.5 pg (27.0-31.2); Mean Corpuscular Volume 90.3 fl (80-94); Mean Platelet Volume 9.2 fl (7.4-10.4); Monocytes # 0.6 K/mm3 (0.1-1.0); Monocytes % 11.5 % (1.7-9.3); Neutrophils # 4.2 K/mm3 (1.8-7.8); Neutrophils % 77.2 % (37.0-80.0); Platelet Count 106 K/mm3 (142-424); Red Blood Count 3.72 M/mm3 (4.60-6.20); White Blood Count 5.4 K/mm3 (4.8-10.8)
[2022-08-04 06:17] LABS: Anion Gap 14.2 mEq/L (5-15); Blood Urea Nitrogen 14 mg/dl (9-20); Calcium 7.8 mg/dl (8.4-10.2); Carbon Dioxide 24 mmol/L (22.0-30.0); Chloride 94 mmol/L (98-107); Creatinine Clearance Estimated 87 mL/min (50-200); Estimated Glomerular Filt Rate 84 ml/min (>60); GFR (African American) 102 ML/MIN (>60); Glucose 105 mg/dl (74-100); Potassium 3.2 mmoL/L (3.5-5.1); Sodium 129 mmol/L (136-145)
[2022-08-04 06:20] LABS: Hemoglobin 11.6 g/dL (14.1-18.0)
--- NOTE | 2022-08-04 06:57 | PC.NURSE ---
Pt has not had any episodes of Vtach t/o night. Pt has remained paced/NSR with a HR in 60s. Pt has not voiced any more c/o nausea since receiving 25mg PO phenergan. Pt did c/o generalized pain 1x, administered [place] 5mg, pt stated favorable results. Call light within reach.
--- NOTE | 2022-08-04 07:06 | EXP.DC.SUM ---
General Admission date:: 07/30/22 Discharge date: 08/04/22 HPI HPI HPI: I interviewed patient at his bedside. -he is alone -he states that he came in cause of heart issues -states that he had a whole new pacemaker placed yesterday He states that he was really down and discouraged yesterday. -that he is hooked up to 3 different IV medicines -and he can't take these home -that he doesn't want to be on hospice -he doesn't want to -and then the benefits processor in [place] called today with 2 different options for him -another oral medicine to try; or an ablation -he states that now he has hope; so his mood is better He states that everything really started in February 2022. -started with a tick bite; that he needed antibiotics for -then he got strep; from being around the [employer] -another antibiotic -then a bladder infection; he states they did blood work then and his WBCs were really high which was concerning cause he was on antibiotics -so they did more tests; and he found out that he has CML leukemia -he states that he also had a GA with stents in February -all the above happened in the time frame of 1 month -he went to oncology in March; they confirmed CML; and he was put on oral chemo -that worked; and his levels were better -then in April 2022; he had tachycardia; need cardioverted; nothing worked -they did a CT scan and found a mass in esophagus -so diagnosed with 2 different cancers in 2 months He has had chemo recently; has esophageal cancer. -he states that at first they didn't even want to give him chemo; cause of his heart health -he had a heart attack 15 years ago; and this took away 40% of his heart function -but they did give this to him -he did great for 3 weeks; then he has had nausea -he can't eat -and has a horrible taste in his mouth all the time -he has lost 35 pounds He states that staying in the bed here is hard on him. -he is generally an active person -likes to go for walks -likes to be outside He states that he will soon be transferred to [facility]. -that this is where they will either start the new medicine or the ablation -he states that yesterday when he was thinking about everything ahead of him; he was didn't have a good outlook -he was tired of the nausea; the hospitals; the lack of options for him -he states that today he is much better -cause he has options -he states that he feels this is not his end game and that he has cheated so many times; so he can't now -he doesn't feel that he is doomed for hospice any longer He does worry about his . -how she will handle things if he doesn't survive the procedures and new medicine -he states that they have been for 45 years -he doesn't leave her in a good financial situation and he worries about her -their son is stepping up and helping out with things He states that he tries not to worry. -he tries to give it over to his denise -but with everything going on; he struggles with this too -he believes in a GOD -but wonders why all this is happening to him He states that he has never been on medicines for anxiety or depression. -he has always just dealt with things -he states that he doesn't feel he needs anything right now -cause it will not change his situation Hospital Course Hospital Course Hospital Course: This is a 67-year-old male with recent diagnosis of DVT and PE on chronic anticoagulation associated atrial fibrillation with esophageal cancer undergoing chemo and radiation therapy.? His most recent echo was in April identified an ejection fraction of 25%. Cardiology consulted during admission. Required numerous rate controlling medication drips including esmolol, lidocaine, amiodarone. Achieved sinus rhythm with occasional pacing for over 48 hours prior to discharge. Stable on current oral regimen. Plan for close follow-up with cardiology and establish with EP at [facility]. Stable for discharge home
--- NOTE | 2022-08-04 07:30 | SW/DCPLANNER ---
Addendum entered by Zita Alvarado RN 08/04/22 14:49: Patient's information faxed to [facility], services will start on Sunday (per Beth). Original Note: I spoke with this patient regarding plans once medically stable for discharge. PT/OT evaluated patient and recommended home health services. Patient is agreeable to home health services w/ [facility] at time of discharge. I will fax patient information at discharge.
--- NOTE | 2022-08-04 09:36 | EXP.CARD.PN ---
Subjective Subjective Date: 08/04/22 Time: 09:37 Principal diagnosis: V. tach with AICD firing Interval history: 67-year-old white male in bed in no acute distress. States he is gradually feeling a little bit better since his nausea improved after Phenergan last evening. He was able to take the mexiletine with food 3 times a day yesterday and keep it down. He has had no recurrent VTE in 48 hours. As instructed per Dr. Dowd, we will discontinue amiodarone (he has had about 10 g loading of IV and oral amiodarone this admission) and discontinue IV lidocaine since he has been able to tolerate mexiletine. If no further episodes of ventricular tachycardia he can be discharged home today. Exam Data for Last 24 hours Vital signs and Labs for Last 24 Hours: Temp Pulse Resp BP Pulse Ox FiO2 97.8 F 60 20 116/71 95 97.8 08/04/22 08:00 08/04/22 08:00 08/04/22 08:00 08/04/22 08:00 08/04/22 08:00 07/31/22 04:00 Laboratory Results - last 24 hr 08/04/22 05:28: WBC 5.4 D, RBC 3.72 L, Hgb 11.6 L, Hct 33.6 L, MCV 90.3, MCH 31.5 H, MCHC 34.8, RDW 25.0 H, Plt Count 106 L D, MPV 9.2, Neut % (Auto) 77.2, Lymph % (Auto) 10.8, [place] % (Auto) 11.5 H, Eos % (Auto) 0.4, Baso % (Auto) 0.1, Neut # (Auto) 4.2, Lymph # (Auto) 0.6 L, [place] # (Auto) 0.6, Eos # (Auto) 0.0, Baso # (Auto) 0.0 08/04/22 05:28: Sodium 129 L, Potassium 3.2 L, Chloride 94 L, Carbon Dioxide 24, Anion Gap 14.2, BUN 14, Creatinine 0.90, Estimated Creat Clear 87, Estimated GFR 84, Est GFR ( Amer) 102, Glucose 105 H, Calcium 7.8 L I & O for Last 24 hours: Intake & Output 08/01/22 08/02/22 08/03/2208/04/23 11:59 11:59 11:59 11:59 Intake Total 1876.146 / 7376.950 7270 / 3409 1387.409 / 0638.531 4682 / 2466 Output Total 1200 / 1200 1550 / 1550 1900 / 1900 1231 / 1231 Balance 676.146 / 131.303 4829 / 1859 -512.591 / -435.088 0641 / 1235 Weight 196 lb 197 lb 6 oz 196 lb 8 oz 192 lb 4.8 oz Constitutional Constitutional: no acute distress *Routine Respiratory Exam Respiratory: Present CTA bilaterally *Routine Cardiovascular Exam Cardiovascular: Present RRR *Routine Extremities Exam Extremities: Absent edema Progress Note: A&P Assessment and plan (1) Ventricular tachycardia: Status: Acute (2) AICD discharge: Status: Acute (3) Coronary artery disease: Status: Acute (4) Ischemic cardiomyopathy with implantable cardioverter-defibrillator (ICD): Status: Acute (5) CML (chronic myelocytic leukemia): Status: Acute (6) Heart failure with reduced ejection fraction: Status: Acute (7) Depression due to physical illness: Status: Acute Assessment and Plan Assessment and Plan for All Diagnoses:: 1.? Recurrent V. tach prompting AICD discharge.? [place] related to medication non-compliance (related to GI upset caused by radiation therapy for esophageal cancer therapy) Continue nadolol 80 mg daily Reduce amiodarone to 400 mg twice daily for 1 month then 400 mg daily AICD generator changed 08/01/2022 due to battery at end-of-life indication Stop IV lidocaine and IV amiodarone 2.? HFrEF, acute on chronic with elevated BNP at 1390 but CXR negative Continue entresto 97/103 mg twice daily, Farxiga 10 mg daily (or Jardiance while in the hospital), eplerenone 25 mg daily (or spironolactone 25 mg daily while in hospital) and Lasix 20 mg daily as needed 3.? History of atrial arrhythmias and recent DVT/PE On Xarelto 20 mg daily 4.? CAD, clinically stable Continue aspirin 81 mg daily Continue atorvastatin 40 mg daily 5.? CML Continue Sprycel 6.? Esophageal cancer status post chemo and radiation therapy Continue PPI therapy If no recurrent V. tach after discontinuing IV amiodarone and IV lidocaine this morning then patient could be discharged home later today. Home medication recommendations Mexiletine 150 mg 3 times daily with meals Amiodarone 400 mg twice daily for 1 month then reduce to 400 mg daily Nadolol 80 mg daily Xarelnick 2
--- NOTE | 2022-08-04 10:15 | PC.NURSE ---
COURTESY TECH NOTE; ROUNDED ON PT 0830, PT DENIED NEED FOR DRINK, NEED TO REPOSITION, NEED FOR RESTROOM. CALL LIGHT WITHIN REACH, NO FURTHER REQUESTS AT THIS TIME. Quincy CORONA, SRNA
--- NOTE | 2022-08-04 11:03 | PC.NURSE ---
AMiodarone gtt and Lidocaine gtt DC this AM. VSS at this time. Pt continues to c/o nausea. No emesis. Pt has been up to chair and ambulated in hallway with standby assist.
--- NOTE | 2022-08-04 12:41 | PC.NURSE ---
Pt had large BM after enema administration.
--- NOTE | 2022-08-04 12:54 | HMH.PHAINT1 ---
Pharmacy Intervention Comments: DISCHARGE MEDICATION COUNSELING PROVIDED. DISCUSSED THE FOLLOWING CHANGES: -STOP AMIODARONE 200 MG BID AND START AMIODARONE 400 MG BID (LOW BP, N/V POSSIBLE) -STOP ENTRESTO 97MG/103MG AND START ENTRESTO 24MG/26MG (BID, DIZZINESS,LIGHT HEADEDNESS, LOW BP POSSIBLE) -STOP OMEPRAZOLE, START PANTOPRAZOLE (DAILY, BEST TAKEN AT NIGHT BUT CAN TAKE ANY TIME OF DAY, HEADACHE POSSIBLE) -STOP METOPROLOL AND START NADOLOL (DAILY, FOR HR/RHYTHM, DIZZY, LIGHTHEADEDNESS, LOW BP, SLOWED HR POSSIBLE) -START MEXILETINE (FOR HEARTRATE, THREE TIMES DAILY, TAKE WITH FOOD, N/D, DIZZINESS, NERVOUSNESS POSSIBLE) -START PROCHLORPERAZINE (FOR NAUSEA, Q6HP, CONSTIPATION, DRY MOUTH, URINARY RETENTION POSSIBLE) -START SENNOSIDES/DOCUSATE (FOR CONSTIPATION, TWICE DAILY NEEDED, TAKE WITH FULL GLASS OF WATER, BLOATING POSSIBLE) -START MAGIC MOUTHWASH (FOR NAUSEA/UPSET STOMACH, ACHS, SWISH AND SWALLOW) PATIENT VERBALIZED NO QUESTIONS AT THIS TIME.
--- NOTE | 2022-08-07 13:48 | CARE MANAGER ---
Attempted to call the phone number on file for patient and . Neither phone number works or allows calls. ROSA MARIA Ken
== END 2022-08-04 14:42 | disposition home health service (06) | DRG 245 ==
LOC: ER 09:23 → 2ND 11:21
PROVIDERS: Internal Medicine; Internal Medicine Adolescent Medicine; Admitting Provider Family Medicine; Emergency Provider Student in an Organized Health Care Education/Training Program; PCP Family Medicine; Visit Provider Family Medicine
PROC: 0JPT0PZ Removal of Cardiac Rhythm Related Device from Trunk Subcutaneous Tissue and Fascia, Open Approach (ICD-10-PCS; principal; 2022-08-01 13:00)
DX: I47.20 Ventricular tachycardia, unspecified (principal); E43 Unspecified severe protein-calorie malnutrition; C15.9 Malignant neoplasm of esophagus, unspecified; C91.10 Chronic lymphocytic leukemia of B-cell type not having achieved remission; I50.22 Chronic systolic (congestive) heart failure; I25.5 Ischemic cardiomyopathy; I25.2 Old myocardial infarction; E78.5 Hyperlipidemia, unspecified; Z86.718 Personal history of other venous thrombosis and embolism; Z79.01 Long term (current) use of anticoagulants; Z95.810 Presence of automatic (implantable) cardiac defibrillator; Z68.26 Body mass index [BMI] 26.0-26.9, adult; Z95.5 Presence of coronary angioplasty implant and graft; M19.90 Unspecified osteoarthritis, unspecified site; I11.0 Hypertensive heart disease with heart failure
CPT/HCPCS: 33233; 33249; 36415; 71046; 80048; 80053; 83735; 83880; 84484; 85025; 85610; 87636; 93005; 93306; 97116; 97162; 97530; 99291; C1721; C9803; J0282; J2405; J3475; J7060; U0003; U0005

== ENCOUNTER → 2022-08-28 10:10 | Outpatient (CLI) | payer MEDICARE, MEDICAID, SELFPAY ==
[2022-08-28 10:38] LABS: Basophils % 0.5 % (0.1-2.0); Eosinophils % 1.2 % (0.1-12.0); Hematocrit 35.1 % (42.0-52.0); Hemoglobin 11.4 g/dL (14.1-18.0); Lymphocytes # 0.8 K/mm3 (0.7-4.5); Lymphocytes % 20.9 % (10-50); Mean Corpuscular HGB Conc 32.6 g/dL (31.8-35.4); Mean Corpuscular Hemoglobin 32.4 pg (27.0-31.2); Mean Corpuscular Volume 99.4 fl (80-94); Mean Platelet Volume 8.7 fl (7.4-10.4); Monocytes # 0.5 K/mm3 (0.1-1.0); Monocytes % 14.8 % (1.7-9.3); Neutrophils # 2.3 K/mm3 (1.8-7.8); Neutrophils % 62.5 % (37.0-80.0); Platelet Count 203 K/mm3 (142-424); Red Blood Count 3.53 M/mm3 (4.60-6.20); Red Cell Distribution Width 24.4 % (11.5-17.5); White Blood Count 3.6 K/mm3 (4.8-10.8)
[2022-08-28 10:54] LABS: Chloride 99 mmol/L (98-107); Potassium 4.6 mmoL/L (3.5-5.1); Sodium 135 mmol/L (136-145)
[2022-08-28 10:57] LABS: Anion Gap 12.6 mEq/L (5-15); Blood Urea Nitrogen 19 mg/dl (9-20); Carbon Dioxide 28 mmol/L (22.0-30.0); Estimated Glomerular Filt Rate 67 ml/min (>60); GFR (African American) 81 ML/MIN (>60)
[2022-08-28 10:58] LABS: Calcium 8.5 mg/dl (8.4-10.2); Glucose 120 mg/dl (74-100); Magnesium 2.2 mg/dl (1.6-2.3)
== END ==
PROVIDERS: PCP Family Medicine; Visit Provider Physician Assistant
DX: C92.10 Chronic myeloid leukemia, BCR/ABL-positive, not having achieved remission (principal); E78.2 Mixed hyperlipidemia; I10 Essential (primary) hypertension; I25.10 Atherosclerotic heart disease of native coronary artery without angina pectoris; I25.5 Ischemic cardiomyopathy; I50.20 Unspecified systolic (congestive) heart failure; I63.9 Cerebral infarction, unspecified; R42 Dizziness and giddiness; Z95.810 Presence of automatic (implantable) cardiac defibrillator
CPT/HCPCS: 36415; 80048; 83735; 85025

== ENCOUNTER 2022-09-10 14:39 | Emergency (ER) | payer MEDICARE, MEDICAID, SELFPAY ==
[2022-09-10] VITALS (8 sets, daily range): BP systolic 111–150; BP diastolic 73–98; PULSE 60–65; RESP 16–17; TEMP 36.6–36.7; O2SAT 95–98; BMI 22.6
--- NOTE | 2022-09-10 14:59 | ECG_ITS ---
APPROVED REPORT Exam: Resting ECG HR:60 bpm ECG Measurements Heart Rate 60 AXES GA 211 P 112 QRSd 127 QRS 95 QT 364 T 82 QTc 364 Conclusion ELECTRONIC ATRIAL PACEMAKER ABNORMAL ECG UNCONFIRMED REPORT Electronically signed by : Brenden Keita MD 09/11/2022 21:30:41
--- NOTE | 2022-09-10 15:25 | HMH.EDGENADL ---
Discharge Plan Disposition Patient Disposition: Home, Self-Care Condition: Good Prescriptions Prescriptions: New diazepam [Valium] 5 mg tablet 5 mg PO DAILY Qty: 2 0RF No Action eplerenone 25 mg tablet 25 mg PO DAILY Qty: 30 5RF atorvastatin 40 mg tablet 40 mg PO HS Qty: 30 5RF Sprycel 100 mg tablet 100 mg PO DAILY aspirin 81 mg tablet 81 mg PO DAILY Farxiga 10 mg tablet 10 mg PO DAILY Label Comments: TAKE 1 TABLET BY MOUTH ONCE DAILY nadolol 80 mg tablet 40 mg PO DAILY Qty: 15 0RF furosemide [Lasix] 20 mg tablet 20 mg PO DAILY PRN (Reason: edema) Qty: 30 5RF trazodone 50 MG tablet 50 mg PO HS ropinirole 1 mg tablet 2 mg PO HS Label Comments: TAKE 2 TABLETS BY MOUTH ONCE DAILY NEEDED FOR RESTLESS LEG SYNDROME Xarelto 15 mg tablet 15 mg PO QPMWITHMEAL Rx Instructions: must administer with evening meal mexiletine 150 mg Capsule 150 mg PO TIDWMEAL 30 Days Qty: 90 0RF Magic Mouthwash [Magic Mouthwash;240ml Botttle] 15 ml PO ACHS Qty: 0 0RF amiodarone 400 mg tablet 400 mg PO BID 30 Days Qty: 60 0RF prochlorperazine maleate 5 mg Tablet 5 mg PO Q6HP PRN (Reason: Nausea And Vomiting) 10 Days Qty: 40 0RF pantoprazole 40 mg Tablet,Delayed Release (Dr/Ec) 40 mg PO DAILY 30 Days Qty: 30 0RF Entresto 24-26 mg Tablet 1 tab PO BID 30 Days Qty: 60 0RF sennosides-docusate sodium [Stool Softener-Stimulant Laxat] 8.6-50 mg Tablet 1 tab PO BID PRN (Reason: Constipation) 10 Days Qty: 20 0RF Referrals Follow up/Referrals: Aaron Rodríguez MD [Primary Care Provider] - See instructions Clinical Impressions Clinical Impression: Acute post-traumatic stress disorder, Anxiety Discharge ED Provider: Jaime Richmond General Adult HPI General Chief complaint: Anxiety Stated complaint: anxiety, not sleeping Time Seen by Provider: 09/10/22 14:43 Mode of Arrival: Ambulatory Source of Information: Patient Limitations: No Limitations Description of Symptoms (Recalled from ER Triage Doc. by RN): 67 yo F presents to ED with c/o anxiety and trouble sleeping. pt is concerned that he is having medication interactions. pt does not have a pcp that he follows with closely and pt is taking medications from retail manager. pt concerned for polypharmacy. History of Present Illness HPI narrative: This is a 67-year-old male with history of CAD, CO status post stenting, hyperlipidemia, hypertension, persistent V. tach status post AICD placement (has received numerous shocks in the recent past), esophageal cancer, CML presenting with insomnia. Patient states he has gone 8 to 10 days without sleeping more than a few minutes per night. He states that he is anxious about AICD firing and going into V. tach, so he tries to relax, because unable to relax and go to sleep, patient has been experiencing insomnia. Also has RLS contributing. Patient worried about not sleeping, does not sleep, then worried about V. tach, so does not sleep and the cycle continues. No chest pain, nausea, vomiting, shortness of breath, lower extremity swelling, diaphoresis, or any other concerns. Related Data Home Medications Medication Instructions Recorded Confirmed trazodone 50 mg tablet 50 mg PO HS Sleep 07/01/21 08/28/22 dasatinib 100 mg tablet (Sprycel) 100 mg PO DAILY chemotherapy 04/26/22 08/28/22 ropinirole 1 mg tablet 2 mg PO HS restless leg syndrome 04/27/22 08/28/22 aspirin 81 mg tablet 81 mg PO DAILY Heart disease 05/15/22 08/28/22 dapagliflozin propanediol 10 mg 10 mg PO DAILY Kidney 05/15/22 08/28/22 tablet (Farxiga) failure/heart disease rivaroxaban 15 mg tablet (Xarelto) 15 mg PO QPMWITHMEAL blood 07/30/22 08/28/22 thinner/atrial fib Previous Rx's Medication Instructions Recorded atorvastatin 40 mg tablet 40 mg PO HS Cholesterol #30 tabs 03/09/22 eplerenone 25 mg tablet 25 mg PO DAILY Hypertension #30 03/09/22 tabs furosemide 20
[2022-09-10 15:39] LABS: Basophils % 0.2 % (0.1-2.0); Eosinophils # 0.1 K/mm3 (0.0-0.4); Eosinophils % 2.3 % (0.1-12.0); Hematocrit 33.8 % (42.0-52.0); Hemoglobin 10.9 g/dL (14.1-18.0); Lymphocytes # 1.5 K/mm3 (0.7-4.5); Lymphocytes % 31.5 % (10-50); Mean Corpuscular HGB Conc 32.4 g/dL (31.8-35.4); Mean Corpuscular Hemoglobin 33.1 pg (27.0-31.2); Mean Corpuscular Volume 102.1 fl (80-94); Mean Platelet Volume 8.6 fl (7.4-10.4); Monocytes # 0.6 K/mm3 (0.1-1.0); Monocytes % 11.4 % (1.7-9.3); Neutrophils # 2.7 K/mm3 (1.8-7.8); Neutrophils % 54.6 % (37.0-80.0); Platelet Count 218 K/mm3 (142-424); Red Blood Count 3.31 M/mm3 (4.60-6.20); Red Cell Distribution Width 22.6 % (11.5-17.5); White Blood Count 4.9 K/mm3 (4.8-10.8)
[2022-09-10 15:42] LABS: Chloride 101 mmol/L (98-107); Potassium 3.8 mmoL/L (3.5-5.1); Sodium 136 mmol/L (136-145)
[2022-09-10 15:45] LABS: Alanine Aminotransferase 54 U/L (12-78); Albumin Level 3.9 g/dl (3.5-5.0); Albumin/Globulin Ratio 1.3 (1.1-1.8); Alkaline Phosphatase 116 U/L (38-126); Anion Gap 13.8 mEq/L (5-15); Aspartate Amino Transferase 65 U/L (17-59); Bilirubin,Total 0.5 mg/dl (0.2-1.3); Blood Urea Nitrogen 21 mg/dl (9-20); Carbon Dioxide 25 mmol/L (22.0-30.0); Creatinine Clearance Estimated 76 mL/min (50-200); Estimated Glomerular Filt Rate 84 ml/min (>60); GFR (African American) 102 ML/MIN (>60); Globulin 3.1 g/dL (1.3-3.2)
[2022-09-10 15:46] LABS: Calcium 8.3 mg/dl (8.4-10.2); Glucose 106 mg/dl (74-100)
--- NOTE | 2022-09-10 15:47 | PC.NURSE ---
rounded on pt nothing needed at this time
--- NOTE | 2022-09-10 16:26 | PC.NURSE ---
pt resting in room
== END 2022-09-10 17:24 | disposition home or self-care (01) ==
PROVIDERS: Emergency Provider Emergency Medicine; PCP Family Medicine
DX: F43.11 Post-traumatic stress disorder, acute (principal); G47.00 Insomnia, unspecified; F41.9 Anxiety disorder, unspecified; I48.91 Unspecified atrial fibrillation; I25.10 Atherosclerotic heart disease of native coronary artery without angina pectoris; E78.5 Hyperlipidemia, unspecified; I10 Essential (primary) hypertension; I25.5 Ischemic cardiomyopathy; I25.2 Old myocardial infarction; Z95.0 Presence of cardiac pacemaker; F17.200 Nicotine dependence, unspecified, uncomplicated
CPT/HCPCS: 80053; 85025; 93005; 99284

== ENCOUNTER → 2022-10-25 14:54 | Outpatient (CLI) | payer MEDICARE, MEDICAID, SELFPAY ==
[2022-10-25 15:12] LABS: Basophils % 0.3 % (0.1-2.0); Eosinophils # 0.1 K/mm3 (0.0-0.4); Eosinophils % 1.2 % (0.1-12.0); Hematocrit 24.5 % (42.0-52.0); Hemoglobin 7.6 g/dL (14.1-18.0); Lymphocytes # 0.8 K/mm3 (0.7-4.5); Lymphocytes % 16.2 % (10-50); Mean Corpuscular HGB Conc 30.9 g/dL (31.8-35.4); Mean Corpuscular Hemoglobin 34.9 pg (27.0-31.2); Mean Corpuscular Volume 112.7 fl (80-94); Mean Platelet Volume 9.5 fl (7.4-10.4); Monocytes # 0.3 K/mm3 (0.1-1.0); Monocytes % 6.7 % (1.7-9.3); Neutrophils # 3.7 K/mm3 (1.8-7.8); Neutrophils % 75.6 % (37.0-80.0); Platelet Count 265 K/mm3 (142-424); Red Blood Count 2.17 M/mm3 (4.60-6.20); Red Cell Distribution Width 16.5 % (11.5-17.5); White Blood Count 4.9 K/mm3 (4.8-10.8)
== END ==
PROVIDERS: PCP Family Medicine; Visit Provider Family Medicine
DX: R79.89 Other specified abnormal findings of blood chemistry (principal)
CPT/HCPCS: 36415; 85025

== ENCOUNTER 2022-11-01 10:16 | Outpatient (CLI) | payer MEDICARE, MEDICAID, SELFPAY ==
[2022-11-01] VITALS (19 sets, daily range): BP systolic 88–122; BP diastolic 49–73; PULSE 60–67; RESP 15–16; TEMP 36.3–36.8; O2SAT 100; BMI 22.6
[2022-11-01 11:12] LABS: Hematocrit 18.5 % (42.0-52.0)
[2022-11-01 11:38] LABS: Hemoglobin 5.7 g/dL (14.1-18.0)
--- NOTE | 2022-11-01 11:55 | PC.NURSE ---
1112 - ALPHONSE ZAMORA CALLED STIVEN CHIU RN AT 1111 TO REPORT HGB 5.7 AND HCT 18.5. RN REPEATED AND VERIFIED PT NAME, , AND LAB VALUES. RESULT CALLED TO DR Devante GAMBLE AND WAS GIVEN ORDERS TO TRANSFUSE WITH 2 UNITS PRBC'S INSTEAD OF ONLY 1 PREVIOUSLY ORDERED.
--- NOTE | 2022-11-01 12:44 | PC.NURSE ---
1238 - BLOOD TRANSFUSION STARTED AT 100 ML/HR AT THIS TIME.
--- NOTE | 2022-11-01 13:15 | PC.NURSE ---
1308 - INCREASED RATE TO 150 ML/HR AT THIS TIME.
--- NOTE | 2022-11-01 13:59 | PC.NURSE ---
1338 - INCREASED RATE TO 200 ML/HR AT THIS TIME.
--- NOTE | 2022-11-01 15:09 | PC.NURSE ---
BLOOD TRANSFUSING AT 100 ML/HR.
--- NOTE | 2022-11-01 15:36 | PC.NURSE ---
1532 - INCREASED RATE TO 150 ML/HR AT THIS TIME.
--- NOTE | 2022-11-01 16:09 | PC.NURSE ---
1602 - INCREASED RATE TO 200 ML/HR AT THIS TIME.
[2022-11-01 18:12] LABS: Basophils % 0.1 % (0.1-2.0); Eosinophils # 0.1 K/mm3 (0.0-0.4); Eosinophils % 1.9 % (0.1-12.0); Hematocrit 24.1 % (42.0-52.0); Lymphocytes # 0.8 K/mm3 (0.7-4.5); Lymphocytes % 17.9 % (10-50); Mean Corpuscular HGB Conc 32.7 g/dL (31.8-35.4); Mean Corpuscular Hemoglobin 32.4 pg (27.0-31.2); Mean Corpuscular Volume 99.1 fl (80-94); Mean Platelet Volume 10.2 fl (7.4-10.4); Monocytes # 0.4 K/mm3 (0.1-1.0); Monocytes % 8.8 % (1.7-9.3); Neutrophils # 3.1 K/mm3 (1.8-7.8); Neutrophils % 71.3 % (37.0-80.0); Platelet Count 136 K/mm3 (142-424); Red Blood Count 2.43 M/mm3 (4.60-6.20); Red Cell Distribution Width 23.4 % (11.5-17.5); White Blood Count 4.4 K/mm3 (4.8-10.8)
[2022-11-01 18:13] LABS: Hemoglobin 7.9 g/dL (14.1-18.0)
--- NOTE | 2022-11-01 18:19 | PC.NURSE ---
RESULTS CALLED TO DR. GAMBLE AT THIS TIME, STATED TO GIVE ANOTHER UNIT TOMORROW WITH ONE HOUR POST H&H
== END 2022-11-01 18:20 | disposition home or self-care (01) ==
LOC: INF 10:17
PROVIDERS: PCP Family Medicine; Visit Provider Family Medicine
DX: D64.9 Anemia, unspecified (principal); R79.9 Abnormal finding of blood chemistry, unspecified
CPT/HCPCS: 36430; 85014; 85018; 85025; 86850; P9016

== ENCOUNTER 2022-11-02 10:10 | Outpatient (CLI) | payer MEDICARE, SELFPAY ==
[2022-11-02] VITALS (11 sets, daily range): BP systolic 96–126; BP diastolic 56–75; PULSE 61–69; RESP 16–18; TEMP 36.3–36.7; O2SAT 99–100; BMI 23.4
--- NOTE | 2022-11-02 12:31 | PC.NURSE ---
11/02/22 1015 Pt presents today for blood transfusion. Pt was seen yesterday in outpt infusion clinic and received 2 units of prbc's for initial hgb-5.7 and symptomatic anemia. MD rechecked 1 hour post transfusion h/h after the 2 units and pt's hgb noted at 7.9. Pt reports expoeriencing symptomatic anemia (ie weakness and fatigue), therefore, MD ordered an additional (3rd) unit be administered today.
[2022-11-02 14:13] LABS: Hemoglobin 8.4 g/dL (14.1-18.0)
== END 2022-11-02 15:20 | disposition home or self-care (01) ==
LOC: INF 10:11
PROVIDERS: PCP Family Medicine; Visit Provider Family Medicine
DX: D64.9 Anemia, unspecified (principal); R53.1 Weakness; R53.83 Other fatigue
CPT/HCPCS: 36430; 85014; 85018; P9016

== ENCOUNTER → 2022-11-14 10:59 | Outpatient (CLI) | payer MEDICARE, SELFPAY ==
[2022-11-14 11:23] LABS: Basophils % 0.3 % (0.1-2.0); Eosinophils # 0.1 K/mm3 (0.0-0.4); Eosinophils % 1.5 % (0.1-12.0); Hematocrit 39.2 % (42.0-52.0); Hemoglobin 12.5 g/dL (14.1-18.0); Lymphocytes # 0.7 K/mm3 (0.7-4.5); Lymphocytes % 11.5 % (10-50); Mean Corpuscular Hemoglobin 31.1 pg (27.0-31.2); Mean Corpuscular Volume 97.3 fl (80-94); Mean Platelet Volume 8.8 fl (7.4-10.4); Monocytes # 0.5 K/mm3 (0.1-1.0); Monocytes % 9.2 % (1.7-9.3); Neutrophils # 4.4 K/mm3 (1.8-7.8); Neutrophils % 77.5 % (37.0-80.0); Platelet Count 162 K/mm3 (142-424); Red Blood Count 4.02 M/mm3 (4.60-6.20); White Blood Count 5.7 K/mm3 (4.8-10.8)
== END ==
PROVIDERS: PCP Family Medicine; Visit Provider Family Medicine
DX: I10 Essential (primary) hypertension (principal)
CPT/HCPCS: 36415; 85025

== ENCOUNTER → 2022-12-01 11:48 | Outpatient (CLI) | payer MEDICARE, SELFPAY ==
[2022-12-01 12:33] LABS: Basophils % 0.2 % (0.1-2.0); Eosinophils # 0.1 K/mm3 (0.0-0.4); Eosinophils % 1.4 % (0.1-12.0); Hematocrit 42.4 % (42.0-52.0); Hemoglobin 13.3 g/dL (14.1-18.0); Lymphocytes # 0.6 K/mm3 (0.7-4.5); Lymphocytes % 8.1 % (10-50); Mean Corpuscular HGB Conc 31.4 g/dL (31.8-35.4); Mean Corpuscular Hemoglobin 30.5 pg (27.0-31.2); Mean Corpuscular Volume 97.1 fl (80-94); Mean Platelet Volume 8.8 fl (7.4-10.4); Monocytes # 0.5 K/mm3 (0.1-1.0); Monocytes % 6.7 % (1.7-9.3); Neutrophils # 6.3 K/mm3 (1.8-7.8); Neutrophils % 83.6 % (37.0-80.0); Platelet Count 124 K/mm3 (142-424); Red Blood Count 4.37 M/mm3 (4.60-6.20); Red Cell Distribution Width 19.6 % (11.5-17.5); White Blood Count 7.5 K/mm3 (4.8-10.8)
== END ==
PROVIDERS: PCP Family Medicine; Visit Provider Family Medicine
DX: D64.9 Anemia, unspecified (principal)
CPT/HCPCS: 36415; 85025

== ENCOUNTER 2022-12-05 12:42 | Inpatient (IN) | payer MEDICARE, SELFPAY ==
[2022-12-05] VITALS (14 sets, daily range): BP systolic 132–164; BP diastolic 78–96; PULSE 66–76; RESP 19–20; TEMP 36.6–37.1; O2SAT 91–97; BMI 22.4; BMI 22.9
--- NOTE | 2022-12-05 12:42 | ECG_ITS ---
APPROVED REPORT Exam: Resting ECG HR:75 bpm ECG Measurements Heart Rate [address] 196 P 85 QRSd 128 QRS 50 QT 358 T 0 QTc 387 Conclusion SINUS RHYTHM ANTERIOR MYOCARDIAL INFARCTION , OF INDETERMINATE AGE [40+ ms Q WAVE AND/OR ST/T ABNORMALITY IN V3/V4] INFERIOR MYOCARDIAL INFARCTION , OF INDETERMINATE AGE [40+ ms Q WAVE AND/OR ST/T ABNORMALITY IN II/aVF] ABNORMAL ECG UNCONFIRMED REPORT Electronically signed by : Brenden Keita MD 12/05/2022 19:56:03
--- NOTE | 2022-12-05 13:22 | CT_ITS ---
FINAL REPORT TECHNIQUE: The patient was injected with IV contrast. Axial images were obtained through the chest in a PE protocol. 3-D reconstruction images were also performed. Individualized dose reduction techniques using automated exposure control or adjustment of the MA and/or KV according to patient's size were employed. CLINICAL HISTORY: h/o esoph ca, pleuritic cp COMPARISON: None FINDINGS: Mediastinal vasculature is adequately opacified. There is mild streak artifact from the patient's pacemaker. There is a filling defect in the distal left main pulmonary artery with extension into the left upper lobe, best seen in images #[id number], consistent with a pulmonary embolus. There is no aortic dissection. There is no axillary adenopathy. There is no hilar or mediastinal adenopathy. The heart size is normal. There are large right and small to moderate left pleural effusions. Bibasilar consolidation is present.. Limited images of the upper abdomen reveal a small amount of ascites, and gallstones are present. There is thickening of the mucosa at the gastroesophageal junction, consistent with the patient's clinical history of esophageal carcinoma. There are multiple low-attenuation structures present in the liver, measuring up to 2.5 cm in diameter, that may represent metastatic disease. IMPRESSION: There is a filling defect in the distal left main pulmonary artery with extension into the left upper lobe, best seen in images #[id number], consistent with a pulmonary embolus. Large right and small to moderate left pleural effusions with bibasilar consolidation. Multiple low-attenuation structures are present in the liver, measuring up to 2.5 cm in diameter, that may represent metastatic disease in this patient with known esophageal carcinoma. Reviewed, Interpreted and Dictated by William Arriaga MD Transcribed by Cecile Teague Authenticated and [facility]
--- NOTE | 2022-12-05 13:23 | HMH.EDGENADL ---
Discharge Plan Disposition Patient Disposition: Xfer Other Chief Complaint: Shortness of Breath/Dyspnea Prescriptions Prescriptions: No Action eplerenone 25 mg tablet 25 mg PO DAILY Qty: 30 5RF Sprycel 100 mg tablet 100 mg PO DAILY aspirin 81 mg tablet 81 mg PO DAILY furosemide [Lasix] 20 mg tablet 20 mg PO DAILY PRN (Reason: edema) Qty: 30 5RF peg 3350-electrolytes [GaviLyte-G] 236-22.74-6.74 -5.86 gram recon soln 240 ml PO Q10M Qty: 4000 0RF Rx Instructions: until fecal effluent is clear--- follow mailed instructions amiodarone 200 mg tablet See Rx Instructions .ROUTE .COMPLEX Qty: 180 1RF Dose Instruction: Take 1 tablet by mouth twice daily Rx Instructions: Take 1 tablet by mouth twice daily trazodone 50 MG tablet 50 mg PO HS Xarelto 15 mg tablet 15 mg PO QPMWITHMEAL Rx Instructions: must administer with evening meal sennosides-docusate sodium [Stool Softener-Stimulant Laxat] 8.6-50 mg Tablet 1 tab PO BID PRN (Reason: Constipation) 10 Days Qty: 20 0RF atorvastatin 40 mg tablet 40 mg PO HS mexiletine 150 mg capsule 150 mg PO BID Entresto 24-26 mg tablet 1 tab PO BID Magic Mouthwash [Magic Mouthwash;240mL Botttle] 15 ML suspension 15 ml PO ACHS Referrals Follow up/Referrals: Aaron Rodríguez MD [Primary Care Provider] - See instructions Clinical Impressions Clinical Impression: 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 by RN): pt to ed c/o shortness of breath with exertion, generalized sickness, nausea and diarrhea. pt states he is being treated for eso cancer. pt states he has recently had 2 scopes done for GI bleeding. History of Present Illness HPI narrative: Patient is a 67-year-old with a complicated medical history including CML, heart failure reduced ejection fraction, esophageal cancer, and recent upper GI bleeds requiring multiple endoscopies. Presenting today with left-sided pleuritic chest pain. States this began yesterday evening has been ongoing since that time its improved with sitting forward worsening with lying back. No exertional component to this. He denies any significant dyspnea. He and his significant other state that he is not any more pale than he is at his baseline. No ongoing melena from historic standpoint. He has a defibrillator in place he also has a history of recurrent V. tach. Has not had any near syncopal or syncopal episodes associated with this. Related Data Home Medications Medication Instructions Recorded Confirmed trazodone 50 mg tablet 50 mg PO HS Sleep 07/01/21 11/02/22 dasatinib 100 mg tablet (Sprycel) 100 mg PO DAILY chemotherapy 04/26/22 11/02/22 aspirin 81 mg tablet 81 mg PO DAILY Heart disease 05/15/22 11/02/22 rivaroxaban 15 mg tablet (Xarelto) 15 mg PO QPMWITHMEAL blood 07/30/22 11/02/22 thinner/atrial fib Magic Mouthwash [Magic 15 ml PO ACHS MOUTH SORES 11/01/22 11/02/22 Mouthwash;240mL Botttle] atorvastatin 40 mg tablet 40 mg PO HS CHOELSTEROL 11/01/22 11/02/22 mexiletine 150 mg capsule 150 mg PO BID Heart Disease 11/01/22 11/02/22 sacubitril 24 mg-valsartan 26 mg 1 tab PO BID Heart Failure 11/01/22 11/02/22 tablet (Entresto) Previous Rx's Medication Instructions Recorded eplerenone 25 mg tablet 25 mg PO DAILY Hypertension #30 03/09/22 tabs furosemide 20 mg tablet (Lasix) 20 mg PO DAILY PRN edema #30 tabs 04/28/22 sennosides 8.6 mg-docusate sodium 1 tab PO BID PRN Constipation 10 08/04/22 50 mg tablet (Stool days #20 tabs Softener-Stimulant Laxative) peg 3350-e
[2022-12-05 13:33] LABS: Chloride 104 mmol/L (98-107); Sodium 141 mmol/L (136-145)
[2022-12-05 13:37] LABS: Magnesium 1.8 mg/dl (1.6-2.3)
[2022-12-05 13:38] LABS: Basophils % 0.1 % (0.1-2.0); Eosinophils % 0.2 % (0.1-12.0); Hematocrit 45.8 % (42.0-52.0); Hemoglobin 14.1 g/dL (14.1-18.0); Lymphocytes # 0.8 K/mm3 (0.7-4.5); Lymphocytes % 8.7 % (10-50); Mean Corpuscular HGB Conc 30.8 g/dL (31.8-35.4); Mean Corpuscular Hemoglobin 30.5 pg (27.0-31.2); Mean Corpuscular Volume 99.2 fl (80-94); Mean Platelet Volume 9.2 fl (7.4-10.4); Monocytes # 0.6 K/mm3 (0.1-1.0); Neutrophils # 8.2 K/mm3 (1.8-7.8); Platelet Count 129 K/mm3 (142-424); Red Blood Count 4.62 M/mm3 (4.60-6.20); Red Cell Distribution Width 19.7 % (11.5-17.5); White Blood Count 9.6 K/mm3 (4.8-10.8)
[2022-12-05 13:41] LABS: Alanine Aminotransferase 61 U/L (12-78); Albumin Level 3.5 g/dl (3.5-5.0); Albumin/Globulin Ratio 0.9 (1.1-1.8); Alkaline Phosphatase 293 U/L (38-126); Aspartate Amino Transferase 90 U/L (17-59); Bilirubin,Total 0.8 mg/dl (0.2-1.3); Blood Urea Nitrogen 24 mg/dl (9-20); Carbon Dioxide 24 mmol/L (22.0-30.0); Creatinine Clearance Estimated 75 mL/min (50-200); Estimated Glomerular Filt Rate 96 ml/min (>60); GFR (African American) 116 ML/MIN (>60); Globulin 3.7 g/dL (1.3-3.2); Glucose 131 mg/dl (74-100); MANUAL DIFFERENTIAL MANUAL DIFFERENTIAL (MANUAL DIFF); Total Protein,Serum 7.2 g/dl (6.3-8.2)
[2022-12-05 13:49] LABS: Troponin I 0.04 ng/ml (0.00-0.034)
--- NOTE | 2022-12-05 14:05 | PC.NURSE ---
notified of critical potassium
[2022-12-05 14:08] LABS: Erythrocyte Sedimentation Rate 21 mm/hr (0-20); Thyroid Stimulating Hormone 1.95 uIU/mL (0.465-4.68)
[2022-12-05 14:17] LABS: Lymphocytes % 8 % (10-50); Monocytes % 4 % (2-9); Neutrophils % 85 % (42-76); Total Cells Counted 100
[2022-12-05 14:18] LABS: Platelet Estimate Slight Decrease; RBC Morphology Normal
--- NOTE | 2022-12-05 15:11 | PC.NURSE ---
Dr. Castro speaking with hospitalist
--- NOTE | 2022-12-05 15:18 | PC.NURSE ---
contacted [facility] to request they power share images to [facility]
--- NOTE | 2022-12-05 15:20 | PC.NURSE ---
Poershared images to [facility] per ER Doctor. also called [facility] resp[facility] per ER Doctor to speak with about getting this pt transferred
--- NOTE | 2022-12-05 15:25 | PC.NURSE ---
Addendum entered by Julieth Moe, ROSA MARIA 12/05/22 15:37: Dr. Castro states [facility] is on divert, unlikely a bed would be available for several days. pt not placed on wait list per dr. castro. Original Note: KAYLYNN CAUSEY speaking with [facility]
--- NOTE | 2022-12-05 15:38 | PC.NURSE ---
contacted [facility] regarding possible transfer. [facility] compliance coordinator states they are currently placing pts on a wait list and it is unlikely the pt would receive a bed assignment at their facility today.
--- NOTE | 2022-12-05 15:40 | PC.NURSE ---
called [facility] per ER Doctor. and they advised that they would call us back.
--- NOTE | 2022-12-05 15:41 | PC.NURSE ---
contacting [facility] per md request
--- NOTE | 2022-12-05 16:02 | PC.NURSE ---
spoke with [facility] and they advised that Dr. Gal Casanova would be calling back to speak with ER Doctor
[2022-12-05 16:46] LABS: Activated Partial Thrombo Time 26.2 seconds (22.8-30.6)
[2022-12-05 17:17] LABS: Troponin I 0.03 ng/ml (0.00-0.034)
--- NOTE | 2022-12-05 17:23 | PC.NURSE ---
Dietary brought pt a supper tray to [facility]
[2022-12-05 17:24] LABS: Procalcitonin 0.219 ng/mL (0.0-2.0)
--- NOTE | 2022-12-05 17:59 | EXP.HP ---
History of Present Illness *Admission Date: 12/05/22 *Reason for visit:: left sided chest pain overnight *History of present illness: Mr. Kaufman is a 67-year-old male with complex history of CML, esophageal adenocarcinoma, liver metastases, heart failure with reduced ejection fraction, cardiomyopathy, AICD, CAD, and A-fib. Had a significant GI bleed a month ago after which his chronic anticoagulation for A-fib was discontinued. He presents today to the ER because of an episode last night of sharp chest pain on the left side that resolved by this morning when he woke up. States he had some shortness of breath with this episode. It would improve with sitting forward, has worsened with lying back. Denies exertional component to this pain. No significant increase swelling in his legs or dyspnea. Denies any recent melenic stools, hematemesis. Has his chronic nausea which limits his p.o. intake. On evaluation, CTA of the chest obtained showing left sided PEs and bilateral pleural effusions. ER consulted medicine for admission for anticoagulation and further management. Given patient's recent GI bleed, multiple endoscopies, and high risk for further bleeding along with his complex medical conditions with his ongoing cancer work-up, treatment, and heart failure, requested that attempts be made to transfer patient. Patient has been accepted at [facility] in [place] where he receives his oncologic care. Unfortunately they do not have beds at this time and patient necessitates admission for monitoring, heparin drip, and continued care until transfer is possible. On evaluation, patient is stable on room air. Denies any chest pain at this time. is at bedside. Extensive discussion about his ongoing medical conditions, difficulty with anticoagulation, and current need for anticoagulation given new finding of pulmonary emboli. Patient agreeable to admission and anticoagulation while we await transfer to higher level of care. Additionally noted to have low potassium. CT also positive for pleural effusions, unknown etiology as these are increased from previous imaging. [facility] Disclaimer: The information contained in this section may have been updated after the patient was seen, as this information can be updated by other users. Medical History Atrial fibrillation Chemotherapy induced nausea and vomiting CML (chronic myelocytic leukemia) Coronary artery disease Depression due to physical illness DVT (deep venous thrombosis) Esophageal cancer GERD (gastroesophageal reflux disease) Groin hematoma History of chemotherapy History of GI bleed History of radiation therapy Hyperlipidemia Hypertension Ischemic cardiomyopathy with implantable cardioverter-defibrillator (ICD) Leukemia Myocardial infarction Pacemaker PNA (pneumonia) Pulmonary edema Ventricular tachycardia Surgical History AICD (automatic cardioverter/defibrillator) present History of cardiac radiofrequency ablation (RFA) History of percutaneous coronary intervention Family History Family history of hypertension Family history of myocardial infarction Family history of hyperlipidemia Cancer Social History Smoking Status: Never smoker alcohol intake: never substance use type: other current occupational status: retired Travel in the last 8 weeks: Inside the [place] household members: spouse housing: house caffeine: Yes Review of Systems Review of Systems Review of systems (narrative): 14 point review of systems performed, pertinent positives and negatives as per HPI Meds Home Medications and Allergies Home Medications Medication Instructions Recorded Confirmed Type trazodone 50 mg tablet 50 mg PO HS Sleep 07/01/21 11/02/22 History eplerenone 2
--- NOTE | 2022-12-05 18:06 | PC.NURSE ---
report called to stevenson mcdaniel
--- NOTE | 2022-12-05 18:34 | PC.NURSE ---
pt admitted to 219 from ED, pt on heparin drip at 1350units/hr, call light within reach, no family present but on way
[2022-12-05 18:40] LABS: PTT Heparin (inpatient only) 198.5 Seconds (23.6-34.0)
--- NOTE | 2022-12-05 18:41 | PC.NURSE ---
Rounded on patient, no question, concerns or needs at this time. Bed is locked and in the lowest position, call light is within reach.
--- NOTE | 2022-12-05 18:57 | PC.NURSE ---
Sarah MIKE instructed this RN to decrease heparin drip to 1150units/hr and draw another aPTT at 2100, drip decreased to 1150units/hr
--- NOTE | 2022-12-05 19:38 | EXP.DC.SUM ---
General Admission date:: 12/05/22 Discharge date: 12/05/22 HPI HPI HPI: Mr. Kaufman is a 67-year-old male with complex history of CML, esophageal adenocarcinoma, liver metastases, heart failure with reduced ejection fraction, cardiomyopathy, AICD, CAD, and A-fib. Had a significant GI bleed a month ago after which his chronic anticoagulation for A-fib was discontinued. He presents today to the ER because of an episode last night of sharp chest pain on the left side that resolved by this morning when he woke up. States he had some shortness of breath with this episode. It would improve with sitting forward, has worsened with lying back. Denies exertional component to this pain. No significant increase swelling in his legs or dyspnea. Denies any recent melenic stools, hematemesis. Has his chronic nausea which limits his p.o. intake. On evaluation, CTA of the chest obtained showing left sided PEs and bilateral pleural effusions. ER consulted medicine for admission for anticoagulation and further management. Given patient's recent GI bleed, multiple endoscopies, and high risk for further bleeding along with his complex medical conditions with his ongoing cancer work-up, treatment, and heart failure, requested that attempts be made to transfer patient. Patient has been accepted at [facility] in [place] where he receives his oncologic care. Hospital Course Hospital Course Hospital Course: Mr. Kaufman is a 67-year-old male with complex history of CML, esophageal adenocarcinoma, liver metastases, heart failure with reduced ejection fraction, cardiomyopathy, AICD, CAD, and A-fib. Had a significant GI bleed a month ago after which his chronic anticoagulation for A-fib was discontinued. He presents today to the ER because of an episode last night of sharp chest pain on the left side that resolved by this morning when he woke up. States he had some shortness of breath with this episode. It would improve with sitting forward, has worsened with lying back. Denies exertional component to this pain. No significant increase swelling in his legs or dyspnea. Denies any recent melenic stools, hematemesis. Has his chronic nausea which limits his p.o. intake. On evaluation, CTA of the chest obtained showing left sided PEs and bilateral pleural effusions. ER consulted medicine for admission for anticoagulation and further management. Given patient's recent GI bleed, multiple endoscopies, and high risk for further bleeding along with his complex medical conditions with his ongoing cancer work-up, treatment, and heart failure, requested that attempts be made to transfer patient. Patient has been accepted at [facility] in [place] where he receives his oncologic care. On admission evaluation, patient is stable on room air. Denies any chest pain at this time. is at bedside. Extensive discussion about his ongoing medical conditions, difficulty with anticoagulation, and current need for anticoagulation given new finding of pulmonary emboli. Patient agreeable to admission and anticoagulation while we await transfer to higher level of care. 1930-Bed becomes available on the CTVU @ [facility]. The patient's potassium is 3.0 on admission. He has 2 10 meq IV potassium ordered for administration, 40 mg of Lasix for his bilateral pleural effusions, and a scopolamine patch ordered for nausea. His heparin gtt is @ 1150 units/hr. pt resting comfortable awaiting transfer. Rounded on patient prior to nurse practitioner. Personally examined and interviewed patient. Agree with exam findings and care plan as documented. Agree with transfer to higher level of care. Exam Data for Last 24 hours Vital signs and Labs for Last 24 Hours: Temp Pulse Resp BP Pulse Ox O2 Del Method O2 Flow Rate 97.9 F 68 19 140/84 91 L Room Air 2 12/05/22 18:43 12/05/22 18:43 12/05/22 18:43 12/05/22 18:43 12/05/22 18:27 12/05/22 19:00 12/05/22 12:48 Laboratory Results - last 24
[2022-12-05 20:07] LABS: Troponin I 0.02 ng/ml (0.00-0.034)
[2022-12-05 22:45] LABS: PTT Heparin (inpatient only) 95.7 Seconds (23.6-34.0)
--- NOTE | 2022-12-05 23:26 | PC.NURSE ---
pt transported off floor to [facility] via ems @23:26
[2022-12-06 00:04] LABS: PTT Heparin (inpatient only) 79.6 Seconds (23.6-34.0)
--- NOTE | 2022-12-06 07:21 | SW/DCPLANNER ---
I received a consult on this patient regarding: PCS4. Patient transferred to [facility] prior to receiving consult.
[2022-12-06 12:46] LABS: C-Reactive Protein 74.8 mg/L (0-4)
== END 2022-12-05 23:26 | DRG 176 ==
LOC: ER 15:46 → 2ND 19:38
PROVIDERS: Emergency Medicine; Admitting Provider Internal Medicine Adolescent Medicine; Emergency Provider Student in an Organized Health Care Education/Training Program; PCP Family Medicine; Visit Provider Internal Medicine Adolescent Medicine
DX: I26.99 Other pulmonary embolism without acute cor pulmonale (principal); C15.9 Malignant neoplasm of esophagus, unspecified; C78.7 Secondary malignant neoplasm of liver and intrahepatic bile duct; C92.10 Chronic myeloid leukemia, BCR/ABL-positive, not having achieved remission; I50.22 Chronic systolic (congestive) heart failure; Z79.899 Other long term (current) drug therapy; Z79.01 Long term (current) use of anticoagulants; Z79.810 Long term (current) use of selective estrogen receptor modulators (SERMs); Z95.810 Presence of automatic (implantable) cardiac defibrillator; I25.10 Atherosclerotic heart disease of native coronary artery without angina pectoris; I11.0 Hypertensive heart disease with heart failure; I25.2 Old myocardial infarction; I25.5 Ischemic cardiomyopathy
CPT/HCPCS: 36415; 71275; 80053; 83735; 84145; 84443; 84484; 85007; 85025; 85651; 85730; 86140; 93005; J2405; Q9967